=== PATIENT | female | born 1980 | race Caucasian/White ===

== ENCOUNTER 2020-12-30 21:41 | Emergency (ER) | payer OTHER, SELFPAY ==
[2020-12-30] MEDS ORDERED: NA CHLORIDE 0.9% 1,000 ML ONE (22:52)
[2020-12-30] MEDS ORDERED: ONDANSETRON 4 MG/2 ML VIAL ONE (22:52)
[2020-12-30] MEDS ORDERED: MORPHINE 4 MG/ML SYR ONE (22:52)
--- NOTE | 2020-12-30 23:31 | ER ---
Nurse's Notes [facility] Name: Bettina Yepez Age: 40 yrs Sex: Female : 1980 Arrival Date: 12/30/2020 Time: 21:44 Bed 12 Private MD: Diagnosis: Migraine Presentation: 12/30 21:49 Chief complaint: Patient states: migraine, nausea, and vomiting starting this morning. kg Hx of migraines. Coronavirus screen: Vaccine status: Patient reports receiving the 1st dose of the Covid vaccine. Date December 2020 Moderna At this time, the client does not indicate any symptoms associated with coronavirus-19. Ebola Screen: Patient negative for fever greater than or equal to 101.5 degrees Fahrenheit, and additional compatible Ebola Virus Disease symptoms Patient denies exposure to infectious person. Patient denies travel to an Ebola-affected area in the 21 days before illness onset. Initial Sepsis Screen: Does the patient meet any 2 criteria? No. Patient's initial sepsis screen is negative. Does the patient have a suspected source of infection? No. Patient's initial sepsis screen is negative. Risk Assessment: Do you want to hurt yourself or someone else?. Onset of symptoms was December 30, 2020 at 11:00. 21:49 Method Of Arrival: Ambulatory kg 21:49 Acuity: SHADI 4 kg Triage Assessment: 21:51 Headache History: The patient has had previous headaches and this one is similar to kg previous episodes. General: Appears in no apparent distress. Behavior is calm, cooperative, appropriate for age, quiet. Pain: Complains of pain in head Pain currently is 8 out of 10 on a pain scale. Pain began 1 day ago. Also complains of nausea, vomiting. Neuro: Reports headache. 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 - Irregular menses kg Historical: - Allergies: 21:51 PENICILLINS; kg 21:51 Stadol; kg 21:51 Lyrica; kg - Home Meds: 21:51 Dilaudid 4 mg daily [Active]; Seroquel 300 mg Oral tab 1 tab nightly [Active]; Seroquel kg 100 mg Oral tab 1 tab for PRN as needed daily [Active]; 21:59 tizanidine oral [Active]; kg - PMHx: 21:51 Fibromyalgia; DJD; Functional neroulgical disorder; Bipolar disorder; PTSD; Anxiety; kg Depression; Migraine; - PSHx: 21:51 Ligation of fallopian tube; Cholecystectomy; scope of left knee; Tonsillectomy; kg Exploratory laparotomy; - Immunization history:: Adult Immunizations not up to date, Client reports receiving the 1st dose of the Covid vaccine, December 2020 Moderna. - Social history:: Smoking status: Reported history of juuling and/or vaping. Patient uses alcohol, but reports only rare drinking. Screenin:57 Abuse screen: Denies threats or abuse. Denies injuries from another. Nutritional kg screening: No deficits noted. Tuberculosis screening: No symptoms or risk factors identified. Fall Risk None identified. Assessment: 22:30 General: Appears uncomfortable, Behavior is calm, cooperative. Pain: Complains of pain cc4 in face Pain currently is 10 out of 10 on a pain scale. Pain began 2 hours ago. Neuro: No deficits noted. Level of Consciousness is awake, alert, obeys commands, Oriented to person, place, time, situation. 22:50 Reassessment: No changes from previously documented assessment. IV NS started left cc4 dorsal hand with #22 g angiocath x 2 attempts \T\ infusing \T\ bolus rate with no edema noted of site; jenna. well; Morphine 4 mg \T\ Zofran 4 mg given IVP for c/o migraine headache. Vital Signs: 21:49 BP 128 / 82; Pulse 120; Resp 20; Temp 98.7(TE); Pulse Ox 100% on R/A; Weight 68.04 kg kg (R); Height 5 ft. 0 in. (152.40 cm) (R); Pain 8/10; 23:40 BP 137 / 84; Pulse 92; Resp 20; Temp 96.2(O); Pulse Ox 98% on R/A; cc4 21:49 Body Mass Index 29.29 (68.04 kg, 152.40 cm) kg ED Course: 21:44 Patient arrived in ED. do 21:51 Triage completed. kg 21:57 Patient has correct armband on for positive identification. kg 21:57 Arm band placed on right wrist. kg 22:00 Aneudy Bell MD is Attending Physician. pkl 22:09 Patricia Dove, BERNY is Primary Nurse. cc4 23:40 No provider procedures requiring assistance completed. cc4 23:40 IV discontinued, intact, bleeding controlled, No redness/swelling at site. Pressure cc4 dressing applied. Administered Medications: 23:52 Discontinued: NS 0.9% 1000 ml IV at 1000 ml once cc4 22:22 CANCELLED (Duplicate Order): morphine 5 mg IM once; RASS on ADMIN: Combtv4, Very pkl Agttd3, Agttd2, Rstlss1, AlertClm0, Drwsy-1, Lt Sdtn-2, Mod Sdtn-3, Dp Sdtn-4, UnArsble-5 22:22 CANCELLED (Duplicate Order): Ondansetron 4 mg PO once pkl 22:50 Drug: NS 0.9% 1000 ml Route: IV; Rate: 1000 ml; Site: left hand; cc4 22:50 Drug: morphine 4 mg Route: IVP; Site: left hand; cc4 23:40 Follow up: Response: No adverse reaction; Marked relief of symptoms cc4 22:50 Drug: Zofran (Ondansetron) 4 mg Route: IVP; Site: left hand; cc4 23:40 Follow up: BP 137 / 84; Pulse 92 bpm; Resp 20 bpm; Temp 96.2 Oral; Pulse Ox 98% RA; cc4 Response: No adverse reaction; Marked relief of symptoms Outcome: 23:30 Discharge ordered by . pk 23:40 Condition: improved cc4 23:40 Discharged to home ambulatory. cc4 23:40 Condition: improved 23:40 Discharge instructions given to patient, Instructed on discharge instructions, follow up and referral plans. medication usage, Demonstrated understanding of instructions, follow-up care, medications. 23:54 Patient left the ED. cc4 Signatures: Aneudy Bell MD MD pkCarey Aranda Kristen, RN RN kg Patricia Dove RN RN cc4 Corrections: (The following items were deleted from the chart) 21:56 21:51 Allergies: No Known Allergies; kg kg
--- NOTE | 2020-12-30 23:32 | EDPHYS ---
Physician Documentation [facility] Name: Bettina Yepez Age: 40 yrs Sex: Female : 1980 Arrival Date: 12/30/2020 Time: 21:44 Bed 12 Private MD: ED Physician Aneudy Bell HPI: 12/30 22:24 This 40 yrs old Female presents to ER via Ambulatory with complaints of pkl Headache > 24hrs Old, Nausea/Vomiting. 22:24 The patient complains of pain to the forehead, left occipital area and right occipital pkl area. The patient describes the headache as constant. Onset: The symptoms/episode began/occurred this morning. Associated signs and symptoms: Pertinent positives: nausea, vomiting. Headache History: The patient has had previous headaches and this one is similar to previous episodes. Patient has H/O migraine. Recently moved here from out of town. Has not established with local Neurologist. 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 - Irregular menses kg Historical: - Allergies: 21:51 PENICILLINS; kg 21:51 Stadol; kg 21:51 Lyrica; kg - Home Meds: 21:51 Dilaudid 4 mg daily [Active]; Seroquel 300 mg Oral tab 1 tab nightly [Active]; Seroquel kg 100 mg Oral tab 1 tab for PRN as needed daily [Active]; 21:59 tizanidine oral [Active]; kg - PMHx: 21:51 Fibromyalgia; DJD; Functional neroulgical disorder; Bipolar disorder; PTSD; Anxiety; kg Depression; Migraine; - PSHx: 21:51 Ligation of fallopian tube; Cholecystectomy; scope of left knee; Tonsillectomy; kg Exploratory laparotomy; - Immunization history:: Adult Immunizations not up to date, Client reports receiving the 1st dose of the Covid vaccine, December 2020 [facility] [place] - Social history:: Smoking status: Reported history of juuling and/or vaping. Patient uses alcohol, but reports only rare drinking. ROS: 22:24 Eyes: Negative for injury, pain, redness, and discharge, ENT: Negative for injury, pkl pain, and discharge, Neck: Negative for injury, pain, and swelling, Cardiovascular: Negative for chest pain, palpitations, and edema, Respiratory: Negative for shortness of breath, cough, wheezing, and pleuritic chest pain. 22:24 Abdomen/GI: Positive for nausea and vomiting. 22:24 Back: Negative for acute changes. 22:24 : Negative for urinary symptoms. 22:24 MS/extremity: Negative for acute changes. 22:24 Skin: Negative for rash. 22:24 Neuro: Positive for headache. Exam: 22:24 Head/Face: Normocephalic, atraumatic. Eyes: Pupils equal round and reactive to light, pkl extra-ocular motions intact. Lids and lashes normal. Conjunctiva and sclera are non-icteric and not injected. Cornea within normal limits. Periorbital areas with no swelling, redness, or edema. ENT: Nares patent. No nasal discharge, no septal abnormalities noted. Tympanic membranes are normal and external auditory canals are clear. Oropharynx with no redness, swelling, or masses, exudates, or evidence of obstruction, uvula midline. Mucous membranes moist. Neck: Trachea midline, no thyromegaly or masses palpated, and no cervical lymphadenopathy. Supple, full range of motion without nuchal rigidity, or vertebral point tenderness. No Meningismus. Chest/axilla: Normal chest wall appearance and motion. Nontender with no deformity. No lesions are appreciated. 22:24 Cardiovascular: Rate: tachycardic, actual rate is 120 bpm, Rhythm: regular. 22:24 Respiratory: the patient does not display signs of respiratory distress, Respirations: normal, Breath sounds: are clear throughout. 22:24 Abdomen/GI: Bowel sounds: normal, Palpation: abdomen is soft and non-tender, in all quadrants. 22:24 Back: Exam negative for acute changes. 22:24 : Exam negative for acute changes. 22:24 Musculoskeletal/extremity: Exam is negative for acute changes. 22:24 Skin: Exam negative for rash. 22:24 Neuro: Orientation: is normal, Mentation: is normal, Cranial nerves: grossly normal, Motor: is normal. Vital Signs: 21:49 BP 128 / 82; Pulse 120; Resp 20; Temp 98.7(TE); Pulse Ox 100% on R/A; Weight 68.04 kg kg (R); Height 5 ft. 0 in. (152.40 cm) (R); Pain 8/10; 23:40 BP 137 / 84; Pulse 92; Resp 20; Temp 96.2(O); Pulse Ox 98% on R/A; cc4 21:49 Body Mass Index 29.29 (68.04 kg, 152.40 cm) kg MDM: 22:00 Patient medically screened. pkl 22:24 Data reviewed: vital signs, nurses notes. pkl 23:28 ED course: Patient feeling better. Advised to follow up with Neurologist in 2 to 3 pkl days. Patient understood instructions.. Administered Medications: 23:52 Discontinued: NS 0.9% 1000 ml IV at 1000 ml once cc4 22:22 CANCELLED (Duplicate Order): morphine 5 mg IM once; RASS on ADMIN: Combtv4, Very pkl Agttd3, Agttd2, Rstlss1, AlertClm0, Drwsy-1, Lt Sdtn-2, Mod Sdtn-3, Dp Sdtn-4, UnArsble-5 22:22 CANCELLED (Duplicate Order): Ondansetron 4 mg PO once pkl 22:50 Drug: NS 0.9% 1000 ml Route: IV; Rate: 1000 ml; Site: left hand; cc4 22:50 Drug: morphine 4 mg Route: IVP; Site: left hand; cc4 23:40 Follow up: Response: No adverse reaction; Marked relief of symptoms cc4 22:50 Drug: Zofran (Ondansetron) 4 mg Route: IVP; Site: left hand; cc4 23:40 Follow up: BP 137 / 84; Pulse 92 bpm; Resp 20 bpm; Temp 96.2 Oral; Pulse Ox 98% RA; cc4 Response: No adverse reaction; Marked relief of symptoms Disposition Summary: 12/30/20 23:30 Discharge Ordered Location: Home pkl Problem: new pkl Symptoms: have improved pkl Condition: Stable pkl Diagnosis - Migraine pkl Followup: pkl - With: Private Physician - When: 2 - 3 days - Reason: Re-evaluation by your physician Discharge Instructions: - Discharge Summary Sheet pkl Forms: - Medication Reconciliation Form pkl - Thank You Letter pkl - Antibiotic Education pkl - Prescription Opioid Use pkl Prescriptions: - Zofran 4 mg Oral Tablet - take 1 tablet by ORAL route every 12 hours As needed; 10 tablet; Refills: 0, pkl Product Selection Permitted - Diclofenac Sodium 75 mg Oral tablet,delayed release (DR/EC) - take 1 tablet by ORAL route 2 times per day As needed; 20 tablet; Refills: 0, pkl Product Selection Permitted Signatures: Aneudy Bell MD MD pkl Yvette Persaud RN RN kg Patricia Dove RN RN cc4 Corrections: (The following items were deleted from the chart) 21:56 21:51 Allergies: No Known Allergies; kg kg 22:22 22:22 morphine 5 mg IM once; RASS on ADMIN: Combtv4, Very Agttd3, Agttd2, Rstlss1, pkl AlertClm0, Drwsy-1, Lt Sdtn-2, Mod Sdtn-3, Dp Sdtn-4, UnArsble-5 ordered. pkl 22:22 22:22 Ondansetron 4 mg PO once ordered. pkl pkl
[2020-12-31 00:43] VITALS: BP 137/84; TEMP 96.2; O2SAT 98
== END 2020-12-30 23:54 | disposition home or self-care (01) ==
LOC: ER 21:41
DX: G43.909 Migraine, unspecified, not intractable, without status migrainosus (principal); F31.9 Bipolar disorder, unspecified; Z88.0 Allergy status to penicillin; Z88.5 Allergy status to narcotic agent; Z88.8 Allergy status to other drugs, medicaments and biological substances
CPT/HCPCS: 96375; 96374; 99283; J7030; J2405

== ENCOUNTER 2021-02-19 20:29 | Emergency (ER) | payer OTHER ==
[2021-02-19] MEDS ORDERED: NA CHLORIDE 0.9% 1,000 ML ONE (21:10)
[2021-02-19 21:38] LABS: Basophils % 0.7 % (0-1.3); Hematocrit 38.7 % (36.0-45.0); Lymphocytes % 42.5 % (15.3-44.8); MPV 8.2 fL (7.6-11.3); RBC Red Blood Cell Count 4.56 M/uL (3.86-4.86)
[2021-02-19 21:40] LABS: Protime INR 1.05
--- NOTE | 2021-02-19 21:43 | RAD REPORT ---
EXAM DESCRIPTION: [place] Single View02/19/2021 9:20 pm CLINICAL HISTORY: Syncope COMPARISON: none FINDINGS: The lungs appear clear of acute infiltrate. The heart is normal size IMPRESSION: No acute abnormalities displayed
--- NOTE | 2021-02-19 21:49 | RAD REPORT ---
EXAM DESCRIPTION: CT - Head Brain Wo Cont - 02/19/2021 9:32 pm CLINICAL HISTORY: Syncope COMPARISON: None. TECHNIQUE: Computed axial tomography of the head was obtained. IV contrast was not requested. All CT scans are performed using dose optimization technique as appropriate and may include automated exposure control or mA/KV adjustment according to patient size. FINDINGS: An intracranial bleed is not seen . The ventricles are normal in caliber. No extra-axial fluid collection is noted. Fluid within the sinuses/ mastoids is not seen. IMPRESSION: No acute intracranial abnormality is seen. If patient's symptoms persist MRI of the bra in would be recommended.
[2021-02-19 22:04] LABS: ALT/SGPT 29 U/L (12-78); AST/SGOT 13 U/L (15-37); Albumin 3.6 g/dL (3.4-5.0); Alkaline Phosphatase 75 U/L (45-117); BUN Blood Urea Nitrogen 13 mg/dL (7-18); Bicarbonate 27 mmol/L (21-32); Bilirubin Direct < 0.1 mg/dL (0-0.2); Bilirubin Total 0.3 mg/dL (0.2-1.0); Glucose Level 102 mg/dL (74-106); Magnesium 2.3 mg/dL (1.8-2.4); NT PRO-BNP 98 pg/mL (<125); Phosphorus 3.4 mg/dL (2.5-4.9); Potassium 4.3 mmol/L (3.5-5.1); Protein, Total 7.6 g/dL (6.4-8.2); Sodium Level 140 mmol/L (136-145); Troponin (Emerg Dept Use Only) < 0.02 ng/mL (0.0-0.045)
[2021-02-19 23:10] LABS: Urine Blood 1+ (Negative); Urine Glucose Negative (Negative); Urine Protein Negative (Negative); Urine Specific Gravity 1.025 (1.005-1.030)
[2021-02-19 23:12] LABS: SARS-COV-2 RT PCR NEGATIVE (NEGATIVE)
[2021-02-19 23:50] LABS: Barbiturates NEGATIVE (NEGATIVE); Benzodiazepines NEGATIVE (NEGATIVE); Cocaine NEGATIVE (NEGATIVE); METHAMPHETAM NEGATIVE (NEGATIVE); Methadone NEGATIVE (NEGATIVE); Opiates NEGATIVE (NEGATIVE); Phencyclidine NEGATIVE (NEGATIVE); THC Cannibis NEGATIVE (NEGATIVE)
--- NOTE | 2021-02-20 01:02 | ER ---
Nurse's Notes [facility] Name: Bettina Yepez Age: 40 yrs Sex: Female : 1980 Arrival Date: 02/19/2021 Time: 20:33 Bed 14 Private MD: Diagnosis: Near Syncope, Possible medication relation Presentation: 02/19 20:39 Chief complaint: Patient states: I have been getting shaky, my knees give out and I ld1 fall on the ground. Pt reports this happening 5 times this week. Over the past year it has progressively gotten worse. Coronavirus screen: At this time, the client does not indicate any symptoms associated with coronavirus-19. Ebola Screen: No symptoms or risks identified at this time. Initial Sepsis Screen: Does the patient meet any 2 criteria? No. Patient's initial sepsis screen is negative. Does the patient have a suspected source of infection? No. Patient's initial sepsis screen is negative. Risk Assessment: Do you want to hurt yourself or someone else? Patient reports no desire to harm self or others. Onset of symptoms was February 19, 2021. 20:39 Method Of Arrival: Wheelchair ld1 20:39 Acuity: SHADI 3 ld1 Triage Assessment: 20:42 General: Appears in no apparent distress. comfortable, Behavior is calm, cooperative, ld1 appropriate for age. Pain: Denies pain. EENT: No signs and/or symptoms were reported regarding the EENT system. Neuro: Level of Consciousness is awake, alert, obeys commands, Oriented to person, place, time, situation, Appropriate for age. Cardiovascular: Capillary refill < 3 seconds Patient's skin is warm and dry. Respiratory: Airway is patent Respiratory effort is even, unlabored, Respiratory pattern is regular, symmetrical. GI: Abdomen is round non-distended. Derm: No signs and/or symptoms reported regarding the dermatologic system. Musculoskeletal: Reports weakness in right leg and left leg. 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 - mr2 Historical: - Allergies: 20:42 Lyrica; ld1 20:42 PENICILLINS; ld1 20:42 Stadol; ld1 - Home Meds: 20:42 Seroquel 300 mg Oral tab 1 tab nightly [Active]; tizanidine Oral [Active]; Robaxin 750 ld1 mg Oral tab 1 tab 3 times per day [Active]; - PMHx: 20:42 Anxiety; Depression; DJD; Fibromyalgia; Functional neroulgical disorder; Migraine; ld1 PTSD; Bipolar disorder; - PSHx: 20:42 Cholecystectomy; Exploratory laparotomy; Ligation of fallopian tube; Tonsillectomy; ld1 scope of left knee; - Immunization history:: Adult Immunizations up to date, Client reports receiving the 2nd dose of the Covid vaccine. - Social history:: Smoking status: Reported history of juuling and/or vaping. Patient uses alcohol, but reports only rare drinking. Screenin:00 Abuse screen: Denies threats or abuse. Denies injuries from another. Nutritional mr2 screening: No deficits noted. Tuberculosis screening: No symptoms or risk factors identified. Fall Risk Fall in past 12 months (25 points). IV access (20 points). Gait- Impaired (20 pts.). Vital Signs: 20:39 BP 89 / 69; Pulse 78; Resp 18; Temp 97.8(TE); Pulse Ox 98% on R/A; Weight 68.04 kg; ld1 Height 5 ft. 0 in. (152.40 cm); Pain 5/10; 20:39 Body Mass Index 29.29 (68.04 kg, 152.40 cm) ld1 ED Course: 20:33 Patient arrived in ED. wm 20:42 Triage completed. ld1 20:42 Arm band placed on right wrist. ld1 20:48 Edilson Wise MD is Attending Physician. 7 20:57 Thiago Valencia, RN is Primary Nurse. mr2 21:21 XRAY Chest (1 view) In Process Unspecified. EDMS 21:31 CT Head Brain wo Cont In Process Unspecified. EDMS 21:31 Phosphorus Sent. mr2 21:31 TSH Sent. mr2 21:31 Salicylate Sent. mr2 21:31 ETOH Level Sent. mr2 21:31 Acetaminophen Sent. mr2 22:00 COVID-19/FLU A+B (Document "Date of Onset" if Symptomatic) Sent. mr2 22:00 No provider procedures requiring assistance completed. Inserted saline lock: 18 gauge mr2 in right antecubital area, using aseptic technique. 23:42 Patient has correct armband on for positive identification. Call light in reach. Side mr2 rails up X2. 11/20 01:29 IV discontinued. mr2 Administered Medications: 02/19 21:31 Drug: NS 0.9% 1000 ml Route: IV; Rate: 1000 ml; Site: right antecubital; mr2 Outcome: 02/20 01:02 Discharge ordered by MD. sandoval 01:29 Discharged to home ambulatory. mr2 01:29 Condition: stable 01:29 Discharge instructions given to patient, Instructed on discharge instructions, follow up and referral plans. 01:29 Patient left the ED. mr2 Signatures: Dispatcher [employer] EDEdilson Bocanegra MD MD 7 Alycia Samuel RN RN ld1 Amee Quinn Mike, RN RN mr2
--- NOTE | 2021-02-20 01:03 | EDPHYS ---
Physician Documentation [facility] Name: Bettina Yepez Age: 40 yrs Sex: Female : 1980 Arrival Date: 02/19/2021 Time: 20:33 Bed 14 Private MD: BLUE Physician Edilson Wise HPI: 02/19 20:50 This 40 yrs old Female presents to ER via Wheelchair with complaints of Pt states she mh7 gets shakey all over and it causes her to collapse. 20:50 The patient has experienced near-syncope, almost passed out, felt generally weak. mh7 Onset: The symptoms/episode began/occurred 1 year(s) ago, and became persistent 1 weeks ago. Duration: The patient has had multiple episodes, that last an unknown period of time. Context: the episode(s) was witnessed, by no one, occurred at home, occurred while the patient was standing, Just prior to the episode the patient experienced Shaky feeling. Associated injury: The patient did not suffer any apparent associated injury. 20:50 Associated signs and symptoms: Pertinent positives: weakness, generalized, Pertinent mh7 negatives: abdominal pain, agitation, ataxia, blurred vision, chest pain, combativeness, confusion, diaphoresis, diarrhea, dizziness, headache, lightheadedness, nausea, numbness, palpitations, seizure, shortness of breath, tingling, vertigo, vomiting. 20:50 Current symptoms: Currently, the patient is not experiencing any symptoms, the patient mh7 feels back to baseline. The patient has experienced similar episodes in the past, chronically. 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 LMP N/A - mr2 Historical: - Allergies: 20:42 Lyrica; ld1 20:42 PENICILLINS; ld1 20:42 Stadol; ld1 - Home Meds: 20:42 Seroquel 300 mg Oral tab 1 tab nightly [Active]; tizanidine Oral [Active]; Robaxin 750 ld1 mg Oral tab 1 tab 3 times per day [Active]; - PMHx: 20:42 Anxiety; Depression; DJD; Fibromyalgia; Functional neroulgical disorder; Migraine; ld1 PTSD; Bipolar disorder; - PSHx: 20:42 Cholecystectomy; Exploratory laparotomy; Ligation of fallopian tube; Tonsillectomy; ld1 scope of left knee; - Immunization history:: Adult Immunizations up to date, Client reports receiving the 2nd dose of the Covid vaccine. - Social history:: Smoking status: Reported history of juuling and/or vaping. Patient uses alcohol, but reports only rare drinking. ROS: 20:50 Constitutional: Negative for fever, chills, and weight loss, Eyes: Negative for injury, mh7 pain, redness, and discharge, ENT: Negative for injury, pain, and discharge, Neck: Negative for injury, pain, and swelling, Cardiovascular: Negative for chest pain, palpitations, and edema, Respiratory: Negative for shortness of breath, cough, wheezing, and pleuritic chest pain, Abdomen/GI: Negative for abdominal pain, nausea, vomiting, diarrhea, and constipation, Back: Negative for injury and pain, : Negative for injury, bleeding, discharge, and swelling, MS/Extremity: Negative for injury and deformity, Skin: Negative for injury, rash, and discoloration, Psych: Negative for depression, anxiety, suicide ideation, homicidal ideation, and hallucinations, Allergy/Immunology: Negative for hives, rash, and allergies, Endocrine: Negative for neck swelling, polydipsia, polyuria, polyphagia, and marked weight changes, Hematologic/Lymphatic: Negative for swollen nodes, abnormal bleeding, and unusual bruising. Exam: 20:50 Constitutional: This is a well developed, well nourished patient who is awake, alert, mh7 and in no acute distress. Head/Face: Normocephalic, atraumatic. Eyes: Pupils equal round and reactive to light, extra-ocular motions intact. Lids and lashes normal. Conjunctiva and sclera are non-icteric and not injected. Cornea within normal limits. Periorbital areas with no swelling, redness, or edema. Neck: Trachea midline, no thyromegaly or masses palpated, and no cervical lymphadenopathy. Supple, full range of motion without nuchal rigidity, or vertebral point tenderness. No Meningismus. Chest/axilla: Normal chest wall appearance and motion. Nontender with no deformity. No lesions are appreciated. Cardiovascular: Regular rate and rhythm with a normal S1 and S2. No gallops, murmurs, or rubs. Normal PMI, no JVD. No pulse deficits. Respiratory: Lungs have equal breath sounds bilaterally, clear to auscultation and percussion. No rales, rhonchi or wheezes noted. No increased work of breathing, no retractions or nasal flaring. Abdomen/GI: Soft, non-tender, with normal bowel sounds. No distension or tympany. No guarding or rebound. No evidence of tenderness throughout. Back: No spinal tenderness. No costovertebral tenderness. Full range of motion. Skin: Warm, dry with normal turgor. Normal color with no rashes, no lesions, and no evidence of cellulitis. MS/ Extremity: Pulses equal, no cyanosis. Neurovascular intact. Full, normal range of motion. Neuro: Awake and alert, GCS 15, oriented to person, place, time, and situation. Cranial nerves II-XII grossly intact. Motor strength 5/5 in all extremities. Sensory grossly intact. Cerebellar exam normal. Normal gait. Psych: Awake, alert, with orientation to person, place and time. Behavior, mood, and affect are within normal limits. Vital Signs: 20:39 BP 89 / 69; Pulse 78; Resp 18; Temp 97.8(TE); Pulse Ox 98% on R/A; Weight 68.04 kg; ld1 Height 5 ft. 0 in. (152.40 cm); Pain 5/10; 20:39 Body Mass Index 29.29 (68.04 kg, 152.40 cm) ld1 MDM: 02/20 00:56 Differential Diagnosis: cardiac arrhythmia, cerebrovascular accident, drug effect, mh7 emotional response, idiopathic syncope, , vasovagal episode. Data reviewed: vital signs, nurses notes, old medical records, lab test result(s), cardiac enzymes, CBC, electrolytes, urinalysis, EKG, radiologic studies, CT scan, plain films. Data interpreted: Pulse oximetry: on room air is 98 %. Interpretation: normal. Counseling: I had a detailed discussion with the patient and/or guardian regarding: the historical points, exam findings, and any diagnostic results supporting the discharge/admit diagnosis, lab results, radiology results. Response to treatment: the patient's symptoms have resolved after treatment, the patient's blood pressure is in an acceptable range, mental status has returned to baseline, the patient no longer shows bradycardia, the patient is not short of breath, the patient is not tachycardic, the patient's pain is gone, the patient's temperature has normalized. Refusal of service: The patient/guardian displays adequate decision making capability and despite a detailed discussion of alternatives, benefits, risks, and consequences refuses: Admission to the hospital for further work-up and treatment. ED course: Pain, no acute distress, vital signs stable, no focal neurological deficits. No headache, chest pain, shortness of breath, nausea, vomiting, dizziness, numbness/tingling, or weakness. Patient ambulating around the ED without difficulty. Discussed all test results and findings recommend admission for further evaluation. Patient declined admission and request to be discharged from the ED at this time. Upon review of patient's medications she noted that her pain management doctor as prescribed Robaxin and Zanaflex which the patient is alternating daily. Explained to patient that these medications especially in combination could be related to her symptoms as they both may cause hypotension and advised that she does not take both of these medications and discuss immediately with her doctor. Patient acknowledged information that was communicated verbalized that she understood.. 01:02 Patient medically screened. [facility] 02/19 21:03 Order name: Basic Metabolic Panel; Complete Time: 22:23 [facility] 02/19 21:03 Order name: CBC with Diff; Complete Time: 21:53 [facility] 02/19 21:03 Order name: LFT's; Complete Time: 22:23 [facility] 02/19 21:03 Order name: Magnesium; Complete Time: 22:23 [facility] 02/19 21:03 Order name: NT PRO-BNP; Complete Time: 22:23 [facility] 02/19 21:03 Order name: PT-INR; Complete Time: 21:53 [facility] 02/19 21:03 Order name: Troponin (emerg Dept Use Only); Complete Time: 22:23 [facility] 02/19 21:03 Order name: UDS; Complete Time: 00:06 [facility] 02/19 21:03 Order name: Acetaminophen; Complete Time: 22:23 [facility] 02/19 21:03 Order name: Salicylate; Complete Time: 21:53 [facility] 02/19 21:03 Order name: ETOH Level; Complete Time: 22:23 [facility] 02/19 21:03 Order name: TSH; Complete Time: 22:23 [facility] 02/19 21:03 Order name: Phosphorus; Complete Time: 22:23 [facility] 02/19 21:05 Order name: COVID-19/FLU A+B (Document "Date of Onset" if Symptomatic); Complete Time: [facility] 00:06 02/19 21:03 Order name: XRAY Chest (1 view); Complete Time: 21:53 [facility] 02/19 21:03 Order name: Cardiac monitoring [facility] 02/19 21:03 Order name: EKG - Nurse/Tech; Complete Time: 22:00 [facility] 02/19 21:03 Order name: IV Saline Lock; Complete Time: 22:00 [facility] 02/19 21:03 Order name: Labs collected and sent; Complete Time: 22:00 [facility] 02/19 21:03 Order name: O2 Per Protocol [facility] 02/19 21:03 Order name: O2 Sat Monitoring [facility] 02/19 21:03 Order name: Urine Dipstick-Ancillary (obtain specimen); Complete Time: 23:06 [facility] 02/19 21:03 Order name: Urine Test (obtain specimen); Complete Time: 23:06 [facility] 02/19 21:03 Order name: CT Head Brain wo Cont; Complete Time: 21:53 [facility] 02/19 21:03 Order name: Orthostatics; Complete Time: 23:06 [facility] 02/19 23:10 Order name: Urine Dipstick-Ancillary; Complete Time: 00:06 EDMS Administered Medications: 02/19 21:31 Drug: NS 0.9% 1000 ml Route: IV; Rate: 1000 ml; Site: right antecubital; mr2 Disposition Summary: 02/20/21 01:02 Discharge Ordered Location: Home [facility] Problem: an ongoing problem [facility] Symptoms: have improved [facility] Condition: Stable [facility] Diagnosis - Near Syncope, Possible medication relation [facility] Followup: [facility] - With: Private Physician - When: 1 - 2 days - Reason: Worsening of condition, Recheck today's complaints, Continuance of care, Re-evaluation by your physician Discharge Instructions: - Discharge Summary Sheet [facility] - Near-Syncope, [id number] [facility] Forms: - Medication Reconciliation Form [facility] - Thank You Letter [facility] - Antibiotic Education [facility] - Prescription Opioid Use [facility] Signatures: Dispatcher [employer] EDEdilson Bocanegra MD MD 7 Alycia Samuel RN RN ld1 Thiago Valencia RN RN mr2
[2021-02-20 01:35] VITALS: BP 89/69; TEMP 97.8; O2SAT 98
== END 2021-02-20 01:29 | disposition home or self-care (01) ==
LOC: ER 20:29
DX: R55 Syncope and collapse (principal); F31.9 Bipolar disorder, unspecified; Z88.0 Allergy status to penicillin; Z88.5 Allergy status to narcotic agent; Z88.8 Allergy status to other drugs, medicaments and biological substances
CPT/HCPCS: 85025; 80048; 36415; 80320; 83735; 80329 ×2; 84100; 85610; 80076; 84443; 81003; 84484; 83880; 0240U; 80307; 70450; 71045; 99284; J7030

== ENCOUNTER 2022-09-19 10:17 | Emergency (ER) | payer OTHER ==
--- OUTSIDE RECORDS SUMMARY | 2022-09-19 10:34 | XMS REPORT | Continuity of Care Document ---
:[address] [facility] t Address [address] [place] [address] Care Team Providers Name Role Phone Samy Velez Primary Care Physician [phone] IVANA LOYD Attending Clinician Unavailable MÓNICA ABRAHAM Attending Clinician Unavailable Mónica Abraham DO Attending Clinician Barbara Salmeron PTA Attending Clinician Unavailable Ivana Loyd MD Attending Clinician Jony Guevara MD Attending Clinician Ansley LINDER Attending Clinician Unavailable Ansley Chadwick Attending Clinician FLAKO ZULUAGA Attending Clinician Unavailable JONY GUEVARA Attending Clinician Unavailable Daria Pantoja PT Attending Clinician Unavailable Doctor Unassigned, [place] Attending Clinician Unavailable Call, Former[facility] Phone Attending Clinician Unavailable CELSA JACKSON Attending Clinician Unavailable Celsa Jackson MD Attending Clinician CHIDI KAUR Attending Clinician Unavailable Chidi Kaur MD Attending Clinician Rojelio Salmeron PTA Attending Clinician Unavailable EDUAR DEE Attending Clinician Unavailable EDUAR DEE Attending Clinician Unavailable Jeannette Alvarez PT Attending Clinician Unavailable EDUARDO DON Attending Clinician Unavailable Eduardo Don NP Attending Clinician YULIANA GARCIA Attending Clinician Unavailable Yuliana Gracia Attending Clinician RADIOLOGY Attending Clinician Unavailable Radiology Attending Clinician Unavailable MÓNICA ABRAHAM Admitting Clinician Unavailable IVANA LOYD Admitting Clinician Unavailable Ivana Loyd MD Admitting Clinician CELSA JACKSON Admitting Clinician Unavailable EDUARDO DON Admitting Clinician Unavailable YULIANA GARCIA Admitting Clinician Unavailable HENRY SÁNCHEZ Admitting Clinician Unavailable Payers Payer Name Policy Type Policy Number Effective Date Expiration Date Vannesa dennison [facility] [id number] 2021 00:00:00 Problems Condition Condition Condition Status Onset Resolution Last Treating Co mments Source Name Details Category Date Date Treatment Clinician Date Sprain of Sprain of Disease Active Overview: Univers anterior anterior 05-02 Formattin ity of talofibula talofibula 00:00: g of this [place] r ligament r ligament 00 note Me dical of right of right might be Bran ch ankle, ankle, different initial initial from the encounter encounter original. Added automatic ally from request for surgery [id number] No known No known Disease Unive rs active active ity of problems problems [facility] Allergies, Adverse Reactions, Alerts Allergy Allergy Status Severity Reaction(s) Onset Inactive Treating Comm ents Source Name Type Date Date Clinician PENICILL Drug Active Rash 2021-04 Univers INS Class 1-12 ity of 00:00: 00 Medical Branch BUTORPHA DRUG Active Hallucinates 2021-04 Un liliane NOL INGREDI 04-14 ity of 00:00: [place] 00 Medical Branch PREGABAL DRUG Active Other-Cmnt 2021-04 Univ ers IN INGREDI 12 ity of 00:00: [place] 00 Medical Branch Pregabal Propensi Active Other - See 2021-04 Suicidal Univers in ty to comments 04-14 ideations ity o f adverse 00:00: [place] reaction 00 Medical s Branch Penicill Propensi Active Rash 2021-04 Univer s ins ty to 1-12 ity of adverse 00:00: [place] reaction 00 Medical s Branch Butorpha Propensi Active Hallucinatio 2021-04 Univers nol ty to ns 12 ity of adverse 00:00: [place] reaction 00 Medical s Branch Penicill Propensi Active ins - ty to 8-10 CLASS adverse 00:00: reaction 00 to drug n Propensi Active ty to 5-24 adverse 00:00: reaction 00 to drug Lyrica - Propensi Active Oral ty to 2-27 adverse 00:00: reaction 00 to drug Stadol Propensi Active ty to 2-25 adverse 00:00: reaction 00 to drug NO KNOWN Drug Active Univers ALLERGIE Class ity of S [facility] Social History Social Habit Start Date Stop Date Quantity Comments Source Exposure to 2022-08-08 2022-08-18 Not sure [facility] SARS-CoV-2 00:00:00 18:06:00 [facility] (event) [place] Tobacco use and 2022-07-08 2022-07-08 Smokeless tobacco Un iversity of exposure 00:00:00 00:00:00 non-user [facility] Sex Assigned At [birth year] Universit y of 00:00:00 00:00:00 [facility] Smoking Status Start Date Stop Date Source Tobacco smoking consumption [facility] Never smoked tobacco [facility] Medications Ordered Filled Start Stop Current Ordering Indication Dosage Frequency Signature Comments Components Source Medication Medication Date Date Medication? Clinician (SIG) Name Name iopamidol 2022- No [id number] 75mL 75 mL, Univers (ISOVUE 09-11 Intravenou ity o f 370-500 mL) 18:45: 18:45 s, ONCE, 1 [place] injection 00 :00 dose, On Medica l 75 mL [facility] 09/11/22 at 1345, Routine morpHINE (4 2022- No 4mg 4 mg, Slow Univers mg/mL) 09-11 IV Push, ity of injection 4 16:45: 17:03 [place]CE[place] 1 [place] 00 :00 dose, On Medical [facility] 09/11/22 at 1145, STAT ondansetron 2022- No 4mg 4 mg, Slow Univers (ZOFRAN 09-11 IV Push, ity of (PF)) 16:45: 17:03 ONCE, 1 [place] injection 4 00 :00 dose, On Medi [place] mg [facility] 09/11/22 at 1145, HUNG metroNIDAZO 0 Yes [id number] 500mg Take 1 Univers LE 500 mg 09-11 tablet by ity o f tablet 00:00: mouth in [place] [address] [facility] morning Branch and 1 tablet in the evening. ciprofloxac 2022- Yes [id number] 500mg Take 1 Univers in HCl 500 09-11 tablet by ity of mg tablet 00:00: 04:59 mouth in [place] as 00 :[address] [facility] morning Branch and 1 tablet in the evening. Do all this for 7 days. methylpredn 2022- No 125mg 125 mg, U nivers isolone sod 08-19 0518 Intramuscu i ty of succ 00:00: 23:01 lar, ONCE, [place] (SOLU-MEDRO 00 :00 1 dose, On Me dical L) [place] Branch injection 08/18/22 at 125 mg 1900, HUNG predniSONE 0 Yes [id number] 1 PO BID x Univers 20 mg 5-18 4 days ity of tablet 00:00: [address] predniSONE 2022-0 Yes [id number] 1 PO BID x Univers 20 mg 5-18 4 days ity of tablet 00:00: [address] predniSONE 2022-0 Yes [id number] 1 PO BID x Univers 20 mg 5-18 4 days ity of tablet 00:00: [address] predniSONE 2022-0 Yes [id number] 1 PO BID x Univers 20 mg 5-18 4 days ity of tablet 00:00: [address] predniSONE 2022-0 Yes [id number] 1 PO BID x Univers 20 mg 5-18 4 days ity of tablet 00:00: [address] predniSONE 2022-0 Yes [id number] 1 PO BID x Univers 20 mg 5-18 4 days ity of tablet 00:00: [address] HYDROcodone 2022- No 1{tbl} 1 tablet, Univers -acetaminop 06-22 Oral, ity of hen (NORCO 13:30: 13:40 ONCE, 1 [place] 5) 5-325 mg 00 :00 dose, On Medi [place] tablet 1 Wed Branch tablet 06/22/22 at 0830, Routine, PACU HYDROcodone 2022- No 1{tbl} 1 tablet, Univers -acetaminop 06-22- Oral, ity of hen (NORCO 13:30: 13:40 ONCE, 1 [place] 5) 5-325 mg 00 :00 dose, On Medi [place] tablet 1 Mon Branch tablet 06/22/22 at 0830, Routine, PACU FENTanyl PF 2022-0 Yes 25ug 25 mcg, Uni vers (SUBLIMAZE 06-22 Slow IV ity of (PF)) 13:16: Push, [place] injection 22 Q5MIN PRN, Medi [place] 25 mcg 4 doses, Branch Starting on Mon06/22/22 at 0816, Until Discontinu ed, Routine, Pain (scale 4-6), PACU ondansetron Yes 4mg 4 mg, Slow Univers (ZOFRAN 06-22 IV Push, ity of (PF)) 13:16: PRN, 1 [place] injection 4 22 dose, Medical mg Starting Branch on Mon06/22/22 at 0816, Until Discontinu ed, Routine, Nausea and Vomiting (N/V), PACU HYDROmorpho 2022- No .2mg 0.2 mg, Un liliane ne 06-22- Slow IV ity of (DILAUDID) 13:16: 14:47 Push, [place] injection 22 :00 Q5MIN PRN, Medi [place] 0.2 mg 10 doses, Branch Starting on Mon06/22/22 at 0816, Until Discontinu ed, Routine, Pain (scale 7-10), PACU
Us e approved by (Faculty): PACU USE -ANESTHESI A SERVICE-HY DROMORPHON E INJECTIONS HYDROmorpho 0 2022- No .2mg 0.2 mg, Un liliane ne 06-22 03-22 Slow IV ity of (DILAUDID) 13:16: 14:47 Push, [place] injection 22 :00 Q5MIN PRN, Medi [place] 0.2 mg 10 doses, Branch Starting on Mon06/22/22 at 0816, Until Discontinu ed, Routine, Pain (scale 7-10), PACU
Us e approved by (Faculty): PACU USE -ANESTHESI A SERVICE-HY DROMORPHON E INJECTIONS FENTanyl PF 2022-0 2022- No 25ug 25 mcg, Un liliane (SUBLIMAZE 06-22 Slow IV ity o f (PF)) 13:16: 18:15 Push, [place] injection 22 :19 Q5MIN PRN, Medi [place] 25 mcg 4 doses, Branch Starting on Mon06/22/22 at 0816, Until Mon06/22/22 at 1315, Routine, Pain (scale 4-6), PACU ondansetron 2022- No 4mg 4 mg, Slow Univers (ZOFRAN 06-22 IV Push, ity of (PF)) 13:16: 18:15 PRN, 1 [place] injection 4 22 :19 dose, Medical mg Starting Branch on Mon06/22/22 at 0816, Until Mon06/22/22 at 1315, Routine, Nausea and Vomiting (N/V), PACU bupivacaine 2022- No PRN, Unive rs (preserv 06-22 Starting ity of free) 13:06: 13:27 on Mon (SENSORCAIN 00 :39 06/22/22 at [place] dicut E MP) 0.25 0806, Branch % (2.5 Intra-op mg/mL) 20 mL, BUPivacaine liposome (PF) (EXPAREL (PF)) 1.3 % (13.3 mg/mL) 266 mg QUEtiapine 2022-0 Yes 400mg Take 1 Univ ers (SEROQUEL 3-22 tablet by ity o f XR) 400 mg 11:10: mouth in [place] 24 hr 19 the Medical tablet morning. Branch ubrogepant 2022-0 Yes Take by Univ ers (UBRELVY) 3-22 mouth as ity of 50 mg Tab 11:10: needed. [place] [address] Medical Branch propranoloL 3-0 Yes 10mg Take 1 Univ ers 10 mg 3-22 tablet by ity of tablet 11:10: mouth in [place] 19 the Medical morning. Branch QUEtiapine 2022-0 Yes 400mg Take 1 Univ ers (SEROQUEL 3-22 tablet by ity o f XR) 400 mg 11:10: mouth in [place] 24 hr 19 the Medical tablet morning. Branch ubrogepant 2022-0 Yes Take by Univ ers (UBRELVY) 3-22 mouth as ity of 50 mg Tab 11:10: needed. [place] [address] Medical Branch propranoloL 2023-0 Yes 10mg Take 1 Univ ers 10 mg 3-22 tablet by ity of tablet 11:10: mouth in [place] [address] the Medical morning. Branch QUEtiapine 2023-0 Yes 400mg Take 1 Univ ers (SEROQUEL 3-22 tablet by ity o f XR) 400 mg 11:10: mouth in [place] 24 hr 19 the Medical tablet morning. Branch ubrogepant 2023-0 Yes Take by Univ ers (UBRELVY) 3-22 mouth as ity of 50 mg Tab 11:10: needed. [place] [address] Medical Branch propranoloL 2023-0 Yes 10mg Take 1 Univ ers 10 mg 3-22 tablet by ity of tablet 11:10: mouth in [place] [address] the Medical morning. Branch QUEtiapine 2023-0 Yes 400mg Take 1 Univ ers (SEROQUEL 3-22 tablet by ity o f XR) 400 mg 11:10: mouth in [place] 24 hr 19 the Medical tablet morning. Branch ubrogepant 2023-0 Yes Take by Univ ers (UBRELVY) 3-22 mouth as ity of 50 mg Tab 11:10: needed. [place] [address] Medical Branch propranoloL 2023-0 Yes 10mg Take 1 Univ ers 10 mg 3-22 tablet by ity of tablet 11:10: mouth in [place] [address] the Medical morning. Branch QUEtiapine 2023-0 Yes 400mg Take 1 Univ ers (SEROQUEL 3-22 tablet by ity o f XR) 400 mg 11:10: mouth in [place] 24 hr 19 the Medical tablet morning. Branch ubrogepant 2023-0 Yes Take by Univ ers (UBRELVY) 3-22 mouth as ity of 50 mg Tab 11:10: needed. [place] [address] Medical Branch propranoloL 2023-0 Yes 10mg Take 1 Univ ers 10 mg 3-22 tablet by ity of tablet 11:10: mouth in [place] [address] the Medical morning. Branch QUEtiapine 2023-0 Yes 400mg Take 1 Univ ers (SEROQUEL 3-22 tablet by ity o f XR) 400 mg 11:10: mouth in [place] 24 hr 19 the Medical tablet morning. Branch ubrogepant 2023-0 Yes Take by Univ ers (UBRELVY) 3-22 mouth as ity of 50 mg Tab 11:10: needed. [place] [address] Medical Branch propranoloL 2022-0 Yes 10mg Take 1 Univ ers 10 mg 3-22 tablet by ity of tablet 11:10: mouth in [place] [address] the Medical morning. Branch QUEtiapine 2022-0 Yes 400mg Take 1 Univ ers (SEROQUEL 3-22 tablet by ity o f XR) 400 mg 11:10: mouth in [place] 24 hr 19 the Medical tablet morning. Branch ubrogepant 2022-0 Yes Take by Univ ers (UBRELVY) 3-22 mouth as ity of 50 mg Tab 11:10: needed. [place] [address] Medical Branch propranoloL 2022-0 Yes 10mg Take 1 Univ ers 10 mg 3-22 tablet by ity of tablet 11:10: mouth in [place] [address] the Medical morning. Branch QUEtiapine 2022-0 Yes 400mg Take 1 Univ ers (SEROQUEL 3-22 tablet by ity o f XR) 400 mg 11:10: mouth in [place] 24 hr 19 the Medical tablet morning. Branch ubrogepant 2022-0 Yes Take by Univ ers (UBRELVY) 3-22 mouth as ity of 50 mg Tab 11:10: needed. [place] [address] Medical Branch propranoloL 2022-0 Yes 10mg Take 1 Univ ers 10 mg 3-22 tablet by ity of tablet 11:10: mouth in [place] [address] the Medical morning. Branch QUEtiapine 2022-0 Yes 400mg Take 1 Univ ers (SEROQUEL 3-22 tablet by ity o f XR) 400 mg 11:10: mouth in [place] 24 hr 19 the Medical tablet morning. Branch ubrogepant 2022-0 Yes Take by Univ ers (UBRELVY) 3-22 mouth as ity of 50 mg Tab 11:10: needed. [place] [address] Medical Branch propranoloL 2022-0 Yes 10mg Take 1 Univ ers 10 mg 3-22 tablet by ity of tablet 11:10: mouth in [place] [address] the Medical morning. Branch acetaminoph 2022-0 2022- No 1{tbl} Take 1 U nivers en-codeine 3-22 -22 tablet by ity of 300-60 mg 08:24: 00:00 mouth [place] tablet 15 :00 every 6 Medical (six) Branch hours as needed for Pain. ondansetron 2022-0 Yes [id number] 4mg Take 1 Univers 4 mg 3-22 [id number] tablet by ity of disintegrat 00:00: mouth [place] ing tablet 00 every 8 Medica l (eight) Branch hours as needed for Nausea and Vomiting (N/V). ondansetron 2023-0 Yes [id number] 4mg Take 1 Univers 4 mg 3-22 [id number] tablet by ity of disintegrat 00:00: mouth [place] ing tablet 00 every 8 Medica l (eight) Branch hours as needed for Nausea and Vomiting (N/V). ondansetron 2023-0 Yes [id number] 4mg Take 1 Univers 4 mg 3-22 [id number] tablet by ity of disintegrat 00:00: mouth [place] ing tablet 00 every 8 Medica l (eight) Branch hours as needed for Nausea and Vomiting (N/V). ondansetron 3-0 Yes [id number] 4mg Take 1 Univers 4 mg 3-22 [id number] tablet by ity of disintegrat 00:00: mouth [place] ing tablet 00 every 8 Medica l (eight) Branch hours as needed for Nausea and Vomiting (N/V). ondansetron 3-0 Yes [id number] 4mg Take 1 Univers 4 mg 3-22 [id number] tablet by ity of disintegrat 00:00: mouth [place] ing tablet 00 every 8 Medica l (eight) Branch hours as needed for Nausea and Vomiting (N/V). ondansetron 3-0 Yes [id number] 4mg Take 1 Univers 4 mg 3-22 [id number] tablet by ity of disintegrat 00:00: mouth [place] ing tablet 00 every 8 Medica l (eight) Branch hours as needed for Nausea and Vomiting (N/V). ondansetron 2023-0 Yes [id number] 4mg Take 1 Univers 4 mg 3-22 [id number] tablet by ity of disintegrat 00:00: mouth [place] ing tablet 00 every 8 Medica l (eight) Branch hours as needed for Nausea and Vomiting (N/V). ondansetron 2023-0 Yes [id number] 4mg Take 1 Univers 4 mg 3-22 [id number] tablet by ity of disintegrat 00:00: mouth [place] ing tablet 00 every 8 Medica l (eight) Branch hours as needed for Nausea and Vomiting (N/V). ondansetron 2023-0 Yes [id number] 4mg Take 1 Univers 4 mg 06-22 [id number] tablet by ity of disintegrat 00:00: mouth [place] ing tablet 00 every 8 Medica l (eight) Branch hours as needed for Nausea and Vomiting (N/V). ondansetron Yes [id number] 4mg Take 1 Univers 4 mg 06-22 [id number] tablet by ity of disintegrat 00:00: mouth [place] ing tablet 00 every 8 Medica l (eight) Branch hours as needed for Nausea and Vomiting (N/V). aspirin 2022- Yes [id number] 325mg Take 1 Univers E.C. 325 mg 06-22 [id number] tablet by ity of EC tablet 00:00: 04:59 mouth in [facility] as 00 :00 the [facility] for 28 days. aspirin 2022- Yes [id number] 325mg Take 1 Univers E.C. 325 mg 06-22 [id number] tablet by ity of EC tablet 00:00: 04:59 mouth in [facility] as 00 :00 the [facility] for 28 days. aspirin 2022- Yes [id number] 325mg Take 1 Univers E.C. 325 mg 06-22 [id number] tablet by ity of EC tablet 00:00: 04:59 mouth in [facility] as 00 :00 the [facility] for 28 days. methocarbam 2022- Yes [id number] 500mg Take 1 Univers oL 500 mg 06-22 [id number] tablet by it y of tablet 00:00: 04:59 mouth in [place] 00 :00 the [facility] Branch and 1 tablet at noon and 1 tablet in the evening. Do all this for 14 days. methocarbam 2022- Yes [id number] 500mg Take 1 Univers oL 500 mg 06-22 [id number] tablet by it y of tablet 00:00: 04:59 mouth in [place] 00 :00 the [facility] Branch and 1 tablet at noon and 1 tablet in the evening. Do all this for 14 days. HYDROcodone 2022- Yes [id number] 1{tbl} Take 1 U nivers -acetaminop 06-22 03-30 tablet by it y of hen (NORCO) 00:00: 04:59 mouth [place] 10-325 mg 00 :00 every 6 Medical tablet (six) Branch hours as needed for Pain (scale 7-10) for up to 7 days. Indication s: acute pain HYDROcodone 2022- Yes [id number] 1{tbl} Take 1 U nivers -acetaminop 3-22 03-30 tablet by it y of hen (NORCO) 00:00: 04:59 mouth [place] 10-325 mg 00 :00 every 6 Medical tablet (six) Branch hours as needed for Pain (scale 7-10) for up to 7 days. Indication s: acute pain PROPRANOLOL 2022-2022- No Take by Un liliane -HYDROCHLOR 3-16 03-16 mouth. ity o f OTHIAZID 17:12: 00:00 [place] ORAL 08 :00 Medical Branch propranoloL 2022-0 Yes 10mg Take 1 Univ ers 10 mg 3-16 tablet by ity of tablet 17:12: mouth in [place] 04 the Medical morning. Branch QUEtiapine 0 Yes 400mg Take 1 Univ ers (SEROQUEL 3-16 tablet by ity o f XR) 400 mg 17:03: mouth in [place] 24 hr 55 the Medical tablet morning. Branch acetaminoph 0 Yes 1{tbl} Take 1 Un liliane en-codeine 3-16 tablet by ity of 300-60 mg 17:03: mouth [place] tablet 55 every 6 Medical (six) Branch hours as needed for Pain. ubrogepant Yes Take by Univ ers (UBRELVY) 3-16 mouth as ity of 50 mg Tab 17:03: needed. [place] 55 Medical Branch FENTanyl PF 2022- No 75ug 75 mcg, Un liliane (SUBLIMAZE 06-07 Slow IV ity o f (PF)) 02:45: 01:47 Push, [place] injection 00 :00 ONCE, 1 Medical 75 mcg dose, On Branch 06/06/22 at 2045, STAT proMETHazin 2022- No 25mg 25 mg, IV Univers e 06-07 Piggyback, ity of (PHENERGAN) 01:45: 01:47 ONCE, 1 [place] 25 mg in 00 :00 dose, On Medical NaCl 0.9% 3/6/23 Bran ch (NS) 50 mL at 1945, IV HUNG piggyback iopamidol 2022- No [id number] 80mL 80 mL, U nivers (ISOVUE 06-07 Intravenou ity o f 370-500 mL) 00:30: 00:30 s, ONCE, 1 [place] injection 00 :00 dose, On Medica l 80 mL Mon06/06/22 Branch at 1830, Routine ondansetron 2022- No 4mg 4 mg, Slow Univers (ZOFRAN 06-06 IV Push, ity of (PF)) 23:45: 00:17 ONCE, 1 [place] injection 4 00 :00 dose, On Medi [place] mg Mon06/06/22 Branch at 1745, HUNG FENTanyl PF No 75ug 75 mcg, Un liliane (SUBLIMAZE 06-06 Slow IV ity o f (PF)) 23:45: 00:21 Push, [place] injection 00 :00 ONCE, 1 Medical 75 mcg dose, On Branch Mon06/06/22 at 1745, STAT proMETHazin 2022-0 Yes [id number] 25mg Take 1 Univers e 25 mg 3-06 tablet by ity of tablet 00:00: mouth [place] 00 every 6 Medical (six) Branch hours as needed for Nausea and Vomiting (N/V). proMETHazin 3-0 Yes [id number] 25mg Take 1 Univers e 25 mg 3-06 tablet by ity of tablet 00:00: mouth [place] 00 every 6 Medical (six) Branch hours as needed for Nausea and Vomiting (N/V). proMETHazin 3-0 Yes [id number] 25mg Take 1 Univers e 25 mg 3-06 tablet by ity of tablet 00:00: mouth [place] 00 every 6 Medical (six) Branch hours as needed for Nausea and Vomiting (N/V). proMETHazin 2023-0 Yes [id number] 25mg Take 1 Univers e 25 mg 3-06 tablet by ity of tablet 00:00: mouth [place] 00 every 6 Medical (six) Branch hours as needed for Nausea and Vomiting (N/V). proMETHazin 2023-0 Yes [id number] 25mg Take 1 Univers e 25 mg 3-06 tablet by ity of tablet 00:00: mouth [place] 00 every 6 Medical (six) Branch hours as needed for Nausea and Vomiting (N/V). proMETHazin 2022-0 Yes [id number] 25mg Take 1 Univers e 25 mg 3-06 tablet by ity of tablet 00:00: mouth [place] 00 every 6 Medical (six) Branch hours as needed for Nausea and Vomiting (N/V). proMETHazin 2022-0 Yes [id number] 25mg Take 1 Univers e 25 mg 3-06 tablet by ity of tablet 00:00: mouth [place] 00 every 6 Medical (six) Branch hours as needed for Nausea and Vomiting (N/V). proMETHazin 2022-0 Yes [id number] 25mg Take 1 Univers e 25 mg 3-06 tablet by ity of tablet 00:00: mouth [place] 00 every 6 Medical (six) Branch hours as needed for Nausea and Vomiting (N/V). proMETHazin 2022-0 Yes [id number] 25mg Take 1 Univers e 25 mg 3-06 tablet by ity of tablet 00:00: mouth [place] 00 every 6 Medical (six) Branch hours as needed for Nausea and Vomiting (N/V). proMETHazin 2022-0 Yes [id number] 25mg Take 1 Univers e 25 mg 3-06 tablet by ity of tablet 00:00: mouth [place] 00 every 6 Medical (six) Branch hours as needed for Nausea and Vomiting (N/V). proMETHazin 2022-0 Yes [id number] 25mg Take 1 Univers e 25 mg 3-06 tablet by ity of tablet 00:00: mouth [place] 00 every 6 Medical (six) Branch hours as needed for Nausea and Vomiting (N/V). No known No No known Unive rs medications 1- medication it y of 11:19: s [place] 53 Medical Branch Dose 2021-04 No Unknown 2-17 00:00: 00 ALBUTEROL 2021-04 No PA HFA 200 2-17 INH 00:00: 00 Dose 2021-04 No Unknown 2-17 00:00: 00 ALBUTEROL 2021-04 No PA HFA 200 2-17 INH 00:00: 00 TAKE 1 2021-04 No TABLET 2-15 DAILY. 00:00: 00 TAKE 1 2021-04 No TABLET AT 2-15 BEDTIME. 00:00: 00 WELLBUTRIN 2021-04 No XL 150MG 2-15 TAB 00:00: 00 Dose 2021-04 No Unknown 2-15 00:00: 00 TAKE ONE 2021-04 No (1) TABLET 2-15 BY MOUTH 00:00: NIGHTLY. 00 Dose 2021-04 No Unknown 2-15 00:00: 00 TAKE ONE 2021-04 No (1) 2-15 TABLET(S) 00:00: BY MOUTH 00 ONCE A DAY. WELLBUTRN 2021-04 No XL 300MG 2-15 TAB 00:00: 00 LEVOFLOXACI 2021-04 No N 500MG TAB 2-15 00:00: 00 MONTELUKAST 2021-04 No SODIUM 10MG 2-15 TAB 00:00: 00 Dose 2021-04 No Unknown 2-15 00:00: 00 TAKE 1 2021-04 No TABLET 2-15 DAILY. 00:00: 00 TAKE 1 2021-04 No TABLET AT 2-15 BEDTIME. 00:00: 00 WELLBUTRIN 2021-04 No XL 150MG 2-15 TAB 00:00: 00 Dose 2021-04 No Unknown 2-15 00:00: 00 TAKE ONE 2021-04 No (1) TABLET 2-15 BY MOUTH 00:00: NIGHTLY. 00 Dose 2021-04 No Unknown 2-15 00:00: 00 TAKE ONE 2021-04 No (1) 2-15 TABLET(S) 00:00: BY MOUTH 00 ONCE A DAY. WELLBUTRN 2021-04 No XL 300MG 2-15 TAB 00:00: 00 LEVOFLOXACI 2021-04 No N 500MG TAB 2-15 00:00: 00 MONTELUKAST 2021-04 No SODIUM 10MG 2-15 TAB 00:00: 00 Dose 2021-04 No Unknown 2-15 00:00: 00 Dose 2021-04 No Unknown 2-13 00:00: 00 Dose 2021-04 No Unknown 2-13 00:00: 00 WELLBUTRIN 2021-04 No XL XL 150MG 2-13 TAB 00:00: 00 Dose 2021-04 No Unknown 2-13 00:00: 00 QUETIAPINE 2021-04 No FUMARATE 2-13 300MG TAB 00:00: 00 Dose 2021-04 No Unknown 2-13 00:00: 00 Dose 2021-04 No Unknown 2-13 00:00: 00 Dose 2021-04 No Unknown 2-13 00:00: 00 BENZONATATE 2021-04 No 100MG 2-13 00:00: 00 Dose 2021-04 No Unknown 2-13 00:00: 00 Dose 2021-04 No Unknown 2-13 00:00: 00 RELISTOR 2021-04 No 150MG TAB 2-13 00:00: 00 Dose 2021-04 No Unknown 2-13 00:00: 00 BROMPHEN/PS 2021-04 No EUDOEPHEDRI 2-13 NE SYP 00:00: 00 MIRTAZAPINE 2021-04 No 15MG TAB 2-13 00:00: 00 TRAZODONE 2021-04 No HYDROCHLORI 2-13 DE 50MG TAB 00:00: 00 Dose 2021-04 No Unknown 2-13 00:00: 00 Dose 2021-04 No Unknown 2-13 00:00: 00 AZITHROMYCI 2021-04 No N 250MG TAB 2-13 00:00: 00 PANTOPRAZOL 2021-04 No E SODIUM 2-13 40MG TAB 00:00: 00 TRIAMCINOLO 2021-04 No NE 2-13 ACETONIDE 00:00: 0.025% CRE 00 MIRTAZAPINE 2021-04 No 30MG TAB 2-13 00:00: 00 DEXAMETHASO 2021-04 No NE 2MG TAB 2-13 00:00: 00 Dose 2021-04 No Unknown 2-13 00:00: 00 DEPO-ACOUSTICAL INSTALLER 2021-04 No A 2-13 CONTRACEPTI 00:00: V 150MG/ML 00 SYN TAKE ONE 2021-04 No (1) 2-13 TABLET(S) 00:00: BY MOUTH 00 ONCE A DAY. UBRELVY 2021-04 No 50MG TAB 2-13 00:00: 00 BENZONATATE 2021-04 No 200MG 2-13 00:00: 00 Dose 2021-04 No Unknown 2-13 00:00: 00 Dose 2021-04 No Unknown 2-13 00:00: 00 Dose 2021-04 No Unknown 2-13 00:00: 00 Dose 2021-04 No Unknown 2-13 00:00: 00 Dose 2021-04 No Unknown 2-13 00:00: 00 WELLBUTRIN 2021-04 No XL XL 150MG 2-13 TAB 00:00: 00 Dose 2021-04 No Unknown 2-13 00:00: 00 QUETIAPINE 2021-04 No FUMARATE 2-13 300MG TAB 00:00: 00 Dose 2021-04 No Unknown 2-13 00:00: 00 Dose 2021-04 No Unknown 2-13 00:00: 00 Dose 2021-04 No Unknown 2-13 00:00: 00 BENZONATATE 2021-04 No 100MG 2-13 00:00: 00 Dose 2021-04 No Unknown 2-13 00:00: 00 Dose 2021-04 No Unknown 2-13 00:00: 00 RELISTOR 2021-04 No 150MG TAB 2-13 00:00: 00 Dose 2021-04 No Unknown 2-13 00:00: 00 BROMPHEN/PS 2021-04 No EUDOEPHEDRI 2-13 NE SYP 00:00: 00 MIRTAZAPINE 2021-04 No 15MG TAB 2-13 00:00: 00 TRAZODONE 2021-04 No HYDROCHLORI 2-13 DE 50MG TAB 00:00: 00 Dose 2021-04 No Unknown 2-13 00:00: 00 Dose 2021-04 No Unknown 2-13 00:00: 00 AZITHROMYCI 2021-04 No N 250MG TAB 2-13 00:00: 00 PANTOPRAZOL 2021-04 No E SODIUM 2-13 40MG TAB 00:00: 00 TRIAMCINOLO 2021-04 No NE 2-13 ACETONIDE 00:00: 0.025% CRE 00 MIRTAZAPINE 2021-04 No 30MG TAB 2-13 00:00: 00 DEXAMETHASO 2021-04 No NE 2MG TAB 2-13 00:00: 00 Dose 2021-04 No Unknown 2-13 00:00: 00 DEPO-ACOUSTICAL INSTALLER 2021-04 No A 2-13 CONTRACEPTI 00:00: V 150MG/ML 00 SYN TAKE ONE 2021-04 No (1) 2-13 TABLET(S) 00:00: BY MOUTH 00 ONCE A DAY. UBRELVY 2021-04 No 50MG TAB 2-13 00:00: 00 BENZONATATE 2021-04 No 200MG 2-13 00:00: 00 Dose 2021-04 No Unknown 2-13 00:00: 00 Dose 2021-04 No Unknown 2-13 00:00: 00 Dose 2021- No Unknown 2-13 00:00: 00 No known 2021- No No known Unive rs medications 1-16 medication it y of 09:45: [address] No known 2021-04 No No known Unive rs medications 1-16 medication it y of 09:45: [address] No known 2021-04 No No known Unive rs medications 1-16 medication it y of 09:45: [address] No known 2021-04 No No known Unive rs medications 1-16 medication it y of 09:45: [address] No known 2021-04 No No known Unive rs medications 1-16 medication it y of 09:45: [address] No known 2021-04 No No known Unive rs medications 1-16 medication it y of 09:45: [address] No known 2021-04 No No known Unive rs medications 1-16 medication it y of 09:45: [address] No known 2021-04 No No known Unive rs medications 1-16 medication it y of 09:45: [address] No known 2021-04 No No known Unive rs medications 1-16 medication it y of 09:45: [address] No known 2021-04 No No known Unive rs medications 1-16 medication it y of 09:45: [address] No known 2021-04 No No known Unive rs medications 1-16 medication it y of 09:45: [address] No known 2021-04 No No known Unive rs medications 1-16 medication it y of 09:45: [address] No known 2021-04 No No known Unive rs medications 1-16 medication it y of 09:45: [address] No known 2021-04 No No known Unive rs medications 1-16 medication it y of 09:45: [address] No known 2021-04 No No known Unive rs medications 1-16 medication it y of 09:45: [address] HYDROcodone 2021-04- No 1{tbl} 1 tablet, [facility] -acetaminop 1-12 11-12 Oral, ONCE i ty of hen (NORCO) 23:30: 22:36 NOW, 1 Derik as 10-325 mg 00 :00 dose, On Medica l tablet 1 Sat Branch tablet 02/12/22 at 1730, Routine ibuprofen 2021-04- No 800mg 800 mg, Uni vers (IBU) 04-14 Oral, ity of tablet 800 22:45: 22:37 ONCE, 1 [place] as mg 00 :00 dose, On Medical Sat Branch 02/12/22 at 1645, [facility] ondansetron 2021-04- No 4mg 4 mg, Univ ers (ZOFRAN-ODT 04-14 Oral, ity of ) 22:41: 22:42 ONCE, 1 [place] disintegrat 00 :00 dose, On Medi [place] tablet Sat Branch 4 mg 02/12/22 at 1645, Routine No known 2021-04 No No known Unive rs medications 04-14 medication it y of 16:21: s [place] [id number] [facility] QUETIAPINE 2021-04 No 400 400MG TAB -04 00:00: 00 QUETIAPINE 2021-04 No FUMARATE 1-04 400MG TAB 00:00: 00 QUETIAPINE 2021-04 No 400MG TAB -04 00:00: 00 QUETIAPINE 2021-04 No FUMARATE 1-04 400MG TAB 00:00: 00 QUETIAPINE 2021-04 No 400MG TAB -04 00:00: 00 QUETIAPINE 2021-04 No FUMARATE 1-04 400MG TAB 00:00: 00 Dose 2021-04 No 75 Unknown 1- 00:00: 00 Dose 2021-04 No Unknown 1-02 00:00: 00 Dose 2021-04 No Unknown 1-02 00:00: 00 FLUTICASONE 2021-04 No PROPIONATE 0-03 50MCG SPR 00:00: 00 FLUTICASONE 2021-04 No PROPIONATE 0-03 50MCG SPR 00:00: 00 FLUTICASONE 2021-04 No PROPIONATE 0-03 50MCG SPR 00:00: 00 FLUTICASONE 2021-04 No PROPIONATE 0-03 50MCG SPR 00:00: 00 Dose 2021-0 No Unknown - 00:00: 00 Dose 2021-0 No Unknown 12-24 00:00: 00 Dose 2022-0 No Unknown 12-24 00:00: 00 PROPRANOLOL 2022-0 No HYDROCHLORI 9-23 DE 10MG TAB 00:00: 00 PROPRANOLOL 2022-0 No HYDROCHLORI 9-23 DE 10MG TAB 00:00: 00 TAKE ONE 2021-0 No 50 (1) 9-21 TABLET(S) 00:00: BY MOUTH 00 TWICE A DAY NEEDED. TAKE ONE 2021-0 No 50 (1) 9-21 TABLET(S) 00:00: BY MOUTH 00 TWICE A DAY NEEDED. TAKE ONE 2021-0 No 50 (1) 9-21 TABLET(S) 00:00: BY MOUTH 00 TWICE A DAY NEEDED. TAKE ONE 2021-0 No 50 (1) 9-21 TABLET(S) 00:00: BY MOUTH 00 TWICE A DAY NEEDED. TAKE ONE 2021-0 No 50 (1) 9-21 TABLET(S) 00:00: BY MOUTH 00 TWICE A DAY NEEDED. Dose 2-0 No Unknown 12-16 00:00: 00 Dose 2022-0 No Unknown 12-16 00:00: 00 Dose 2-0 No Unknown 12-16 00:00: 00 PROAIR HFA 2022-0 No INH 12-16 00:00: 00 PROAIR HFA 2022-0 No INH 12-16 00:00: 00 Dose 2-0 No Unknown 12-16 00:00: 00 Dose 2-0 No 4 Unknown 12-03 00:00: 00 Dose 2022-0 No 4 Unknown 12-03 00:00: 00 Dose 2022-0 No 4 Unknown 12-03 00:00: 00 Dose 2022-0 No Unknown 12-03 00:00: 00 Dose 2-0 No Unknown 12-03 00:00: 00 Dose 2022-0 No 4 Unknown 12-03 00:00: 00 Dose 2022-0 No 4 Unknown 12-03 00:00: 00 LAMICTAL 2-0 No 200MG TAB 8-15 00:00: 00 LAMICTAL 2-0 No 200MG TAB 8-15 00:00: 00 LAMICTAL 2022-0 No 200MG TAB 8-15 00:00: 00 LAMICTAL 2022-0 No 200MG TAB 8-15 00:00: 00 LAMICTAL 2022-0 No 200MG TAB 8-15 00:00: 00 &lt 2022-0 No 200 8-15 00:00: 00 LAMICTAL 2022-0 No 200MG TAB 8-15 00:00: 00 &lt 2022-0 No 150 8-10 00:00: 00 Dose 2022-0 No 300 Unknown 8-10 00:00: 00 Dose 2022-0 No 300 Unknown 8-10 00:00: 00 Dose 2022-0 No 200 Unknown 8-10 00:00: 00 Dose 2022-0 No 600 Unknown 8-10 00:00: 00 Dose 2022-0 No 100 Unknown 8-10 00:00: 00 &lt 2022-0 No 50 8-10 00:00: 00 Dose 2022-0 No 150 Unknown 8-10 00:00: 00 &lt 2022-0 No 300 8-10 00:00: 00 TAKE ONE 2022-0 No 4 (1) 8-10 TABLET(S) 00:00: BY MOUTH 00 EVERY TWELVE HOURS NEEDED FOR NAUSEA. &lt 2022-0 No 100 8-10 00:00: 00 TAKE ONE 2022-0 No 4 (1) 8-10 TABLET(S) 00:00: BY MOUTH 00 EVERY TWELVE HOURS NEEDED FOR NAUSEA. &lt 2022-0 No 50 8-10 00:00: 00 &lt 2022-0 No 200 8-10 00:00: 00 TAKE ONE 2022-0 No 50 (1) 8-10 TABLET(S) 00:00: BY MOUTH 00 TWICE A DAY NEEDED. &lt 2022-0 No 150 8-10 00:00: 00 Dose 2022-0 No 300 Unknown 8-10 00:00: 00 Dose 2022-0 No 300 Unknown 8-10 00:00: 00 Dose 2022-0 No 200 Unknown 8-10 00:00: 00 Dose 2022-0 No 600 Unknown 8-10 00:00: 00 Dose 2022-0 No 100 Unknown 8-10 00:00: 00 &lt 2022-0 No 50 8-10 00:00: 00 Dose 2022-0 No 150 Unknown 8-10 00:00: 00 &lt 2022-0 No 300 8-10 00:00: 00 TAKE ONE 2022-0 No 4 (1) 8-10 TABLET(S) 00:00: BY MOUTH 00 EVERY TWELVE HOURS NEEDED FOR NAUSEA. &lt 2022-0 No 100 8-10 00:00: 00 TAKE ONE 2-0 No 4 (1) 8-10 TABLET(S) 00:00: BY MOUTH 00 EVERY TWELVE HOURS NEEDED FOR NAUSEA. &lt 2022-0 No 50 8-10 00:00: 00 &lt 2022-0 No 200 8-10 00:00: 00 TAKE ONE 2-0 No 50 (1) 8-10 TABLET(S) 00:00: BY MOUTH 00 TWICE A DAY NEEDED. &lt 2022-0 No 150 8-10 00:00: 00 Dose 2022-0 No 300 Unknown 8-10 00:00: 00 Dose 2022-0 No 300 Unknown 8-10 00:00: 00 Dose 2022-0 No 200 Unknown 8-10 00:00: 00 Dose 2022-0 No 600 Unknown 8-10 00:00: 00 Dose 2022-0 No 100 Unknown 8-10 00:00: 00 &lt 2022-0 No 50 8-10 00:00: 00 Dose 2022-0 No 150 Unknown 8-10 00:00: 00 &lt 2022-0 No 300 8-10 00:00: 00 TAKE ONE 2-0 No 4 (1) 8-10 TABLET(S) 00:00: BY MOUTH 00 EVERY TWELVE HOURS NEEDED FOR NAUSEA. &lt 2-0 No 100 8-10 00:00: 00 TAKE ONE 2-0 No 4 (1) 8-10 TABLET(S) 00:00: BY MOUTH 00 EVERY TWELVE HOURS NEEDED FOR NAUSEA. &lt 2022-0 No 50 8-10 00:00: 00 &lt 2022-0 No 200 8-10 00:00: 00 TAKE ONE 2-0 No 50 (1) 8-10 TABLET(S) 00:00: BY MOUTH 00 TWICE A DAY NEEDED. &lt 2022-0 No 150 8-10 00:00: 00 Dose 2022-0 No 300 Unknown 8-10 00:00: 00 Dose 2022-0 No 300 Unknown 8-10 00:00: 00 Dose 2022-0 No 200 Unknown 8-10 00:00: 00 Dose 2022-0 No 600 Unknown 8-10 00:00: 00 Dose 2022-0 No 100 Unknown 8-10 00:00: 00 &lt 2022-0 No 50 8-10 00:00: 00 Dose 2022-0 No 150 Unknown 8-10 00:00: 00 &lt 2022-0 No 300 8-10 00:00: 00 TAKE ONE 2022-0 No 4 (1) 8-10 TABLET(S) 00:00: BY MOUTH 00 EVERY TWELVE HOURS NEEDED FOR NAUSEA. &lt 2022-0 No 100 8-10 00:00: 00 TAKE ONE 2022-0 No 4 (1) 8-10 TABLET(S) 00:00: BY MOUTH 00 EVERY TWELVE HOURS NEEDED FOR NAUSEA. &lt 2022-0 No 50 8-10 00:00: 00 &lt 2022-0 No 200 8-10 00:00: 00 TAKE ONE 2-0 No 50 (1) 8-10 TABLET(S) 00:00: BY MOUTH 00 TWICE A DAY NEEDED. &lt 2022-0 No 150 8-10 00:00: 00 Dose 2022-0 No 300 Unknown 8-10 00:00: 00 Dose 2022-0 No 300 Unknown 8-10 00:00: 00 Dose 2022-0 No 200 Unknown 8-10 00:00: 00 Dose 2022-0 No 600 Unknown 8-10 00:00: 00 TRAZODONE 2-0 No HYDROCHLORI 8-10 DE 100MG 00:00: TAB 00 &lt 2-0 No 50 8-10 00:00: 00 Dose 2022-0 No 150 Unknown 8-10 00:00: 00 &lt 2022-0 No 300 8-10 00:00: 00 TAKE ONE 2022-0 No 4 (1) 8-10 TABLET(S) 00:00: BY MOUTH 00 EVERY TWELVE HOURS NEEDED FOR NAUSEA. &lt 2022-0 No 100 8-10 00:00: 00 TAKE ONE 2022-0 No 4 (1) 8-10 TABLET(S) 00:00: BY MOUTH 00 EVERY TWELVE HOURS NEEDED FOR NAUSEA. &lt 2022-0 No 50 8-10 00:00: 00 &lt 2022-0 No 200 8-10 00:00: 00 TAKE ONE 2022-0 No 50 (1) 8-10 TABLET(S) 00:00: BY MOUTH 00 TWICE A DAY NEEDED. &lt 2022-0 No 150 8-10 00:00: 00 Dose 2022-0 No 300 Unknown 8-10 00:00: 00 Dose 2022-0 No 300 Unknown 8-10 00:00: 00 Dose 2022-0 No 200 Unknown 8-10 00:00: 00 Dose 2022-0 No 600 Unknown 8-10 00:00: 00 TRAZODONE 2-0 No HYDROCHLORI 8-10 DE 100MG 00:00: TAB 00 &lt 2022-0 No 50 8-10 00:00: 00 Dose 2022-0 No 150 Unknown 8-10 00:00: 00 &lt 2022-0 No 300 8-10 00:00: 00 TAKE ONE 2-0 No 4 (1) 8-10 TABLET(S) 00:00: BY MOUTH 00 EVERY TWELVE HOURS NEEDED FOR NAUSEA. &lt 2022-0 No 100 8-10 00:00: 00 TAKE ONE 2-0 No 4 (1) 8-10 TABLET(S) 00:00: BY MOUTH 00 EVERY TWELVE HOURS NEEDED FOR NAUSEA. &lt 2022-0 No 50 8-10 00:00: 00 &lt 2022-0 No 200 8-10 00:00: 00 TAKE ONE 2-0 No 50 (1) 8-10 TABLET(S) 00:00: BY MOUTH 00 TWICE A DAY NEEDED. &lt 2-0 No 150 8-10 00:00: 00 Dose 2022-0 No 300 Unknown 8-10 00:00: 00 Dose 2022-0 No 300 Unknown 8-10 00:00: 00 Dose 2022-0 No 200 Unknown 8-10 00:00: 00 Dose 2022-0 No 600 Unknown 8-10 00:00: 00 Dose 2022-0 No 100 Unknown 8-10 00:00: 00 &lt 2022-0 No 50 8-10 00:00: 00 Dose 2022-0 No 150 Unknown 8-10 00:00: 00 &lt 2022-0 No 300 8-10 00:00: 00 TAKE ONE 2-0 No 4 (1) 8-10 TABLET(S) 00:00: BY MOUTH 00 EVERY TWELVE HOURS NEEDED FOR NAUSEA. &lt 2022-0 No 100 8-10 00:00: 00 TAKE ONE 2022-0 No 4 (1) 8-10 TABLET(S) 00:00: BY MOUTH 00 EVERY TWELVE HOURS NEEDED FOR NAUSEA. &lt 2022-0 No 50 8-10 00:00: 00 &lt 2022-0 No 200 8-10 00:00: 00 TAKE ONE 2022-0 No 50 (1) 8-10 TABLET(S) 00:00: BY MOUTH 00 TWICE A DAY NEEDED. &lt 2022-0 No 150 8-10 00:00: 00 Dose 2022-0 No 300 Unknown 8-10 00:00: 00 Dose 2022-0 No 300 Unknown 8-10 00:00: 00 Dose 2022-0 No 200 Unknown 8-10 00:00: 00 Dose 2022-0 No 600 Unknown 8-10 00:00: 00 Dose 2022-0 No 100 Unknown 8-10 00:00: 00 &lt 2022-0 No 50 8-10 00:00: 00 Dose 2022-0 No 150 Unknown 8-10 00:00: 00 &lt 2022-0 No 300 8-10 00:00: 00 TAKE ONE 2022-0 No 4 (1) 8-10 TABLET(S) 00:00: BY MOUTH 00 EVERY TWELVE HOURS NEEDED FOR NAUSEA. &lt 2022-0 No 100 8-10 00:00: 00 TAKE ONE 2022-0 No 4 (1) 8-10 TABLET(S) 00:00: BY MOUTH 00 EVERY TWELVE HOURS NEEDED FOR NAUSEA. &lt 2022-0 No 50 8-10 00:00: 00 &lt 2022-0 No 200 8-10 00:00: 00 TAKE ONE 2022-0 No 50 (1) 8-10 TABLET(S) 00:00: BY MOUTH 00 TWICE A DAY NEEDED. Dose 2022-0 No 600 Unknown 09 00:00: 00 TAKE ONE 2022-0 No 75 (1) 8-09 TABLET(S) 00:00: BY MOUTH 00 TWICE A DAY NEEDED. Dose 2022-0 No 600 Unknown 11-09 00:00: 00 TAKE ONE 2022-0 No 75 (1) 8-09 TABLET(S) 00:00: BY MOUTH 00 TWICE A DAY NEEDED. Dose 2022-0 No 600 Unknown 8 00:00: 00 TAKE ONE 2022-0 No 75 (1) 8-09 TABLET(S) 00:00: BY MOUTH 00 TWICE A DAY NEEDED. Dose 2022-0 No 600 Unknown 11-09 00:00: 00 TAKE ONE 2022-0 No 75 (1) 8-09 TABLET(S) 00:00: BY MOUTH 00 TWICE A DAY NEEDED. Dose 2022-0 No 600 Unknown 11-09 00:00: 00 TAKE ONE 2022-0 No 75 (1) 8-09 TABLET(S) 00:00: BY MOUTH 00 TWICE A DAY NEEDED. Dose 2022-0 No 600 Unknown 11-09 00:00: 00 TAKE ONE 2022-0 No 75 (1) 8-09 TABLET(S) 00:00: BY MOUTH 00 TWICE A DAY NEEDED. Dose 2022-0 No 600 Unknown 11-09 00:00: 00 TAKE ONE 2022-0 No 75 (1) 8-09 TABLET(S) 00:00: BY MOUTH 00 TWICE A DAY NEEDED. Dose 2022-0 No 600 Unknown 11-09 00:00: 00 TAKE ONE 2022-0 No 75 (1) 8-09 TABLET(S) 00:00: BY MOUTH 00 TWICE A DAY NEEDED. &lt 2022-0 No 400 8- 00:00: 00 Dose 2022-0 No Unknown 8 00:00: 00 &lt 2022-0 No 400 8- 00:00: 00 Dose 2022-0 No Unknown 8 00:00: 00 &lt 2022-0 No 400 8- 00:00: 00 Dose 2022-0 No Unknown 8 00:00: 00 &lt 2022-0 No 400 8- 00:00: 00 Dose 2022-0 No Unknown 8 00:00: 00 &lt 2022-0 No 400 8- 00:00: 00 Dose 2022-0 No Unknown 8 00:00: 00 &lt 2022-0 No 400 8- 00:00: 00 Dose 2022-0 No Unknown 8 00:00: 00 &lt 2022-0 No 400 8- 00:00: 00 Dose 2022-0 No Unknown 8 00:00: 00 &lt 2022-0 No 400 8- 00:00: 00 Dose 2022-0 No Unknown 8- 00:00: 00 &lt 2022-0 No 400 8-06 00:00: 00 &lt 2022-0 No 250 8-06 00:00: 00 &lt 2022-0 No 400 8-06 00:00: 00 &lt 2022-0 No 250 8-06 00:00: 00 &lt 2022-0 No 400 8-06 00:00: 00 &lt 2022-0 No 250 8-06 00:00: 00 &lt 2022-0 No 400 8-06 00:00: 00 &lt 2022-0 No 250 8-06 00:00: 00 &lt 2022-0 No 400 8-06 00:00: 00 &lt 2022-0 No 250 8-06 00:00: 00 &lt 2022-0 No 400 8-06 00:00: 00 &lt 2022-0 No 250 8-06 00:00: 00 &lt 2022-0 No 400 8-06 00:00: 00 &lt 2022-0 No 250 8-06 00:00: 00 &lt 2022-0 No 400 8-06 00:00: 00 &lt 2022-0 No 250 8-06 00:00: 00 Wellbutrin 2022-0 No 1mg XL 150 mg 8-04 24 hr 00:00: tablet, 00 extended release propranolol 2022-0 No 1mg 10 mg 8-04 tablet 00:00: 00 Lamictal 2022-0 No 1mg 200 mg 8-04 tablet 00:00: 00 Dose 2022-0 No Unknown 8-04 00:00: 00 mirtazapine 2022-0 No 1mg 45 mg 8-04 tablet 00:00: 00 &lt 2022-0 No 10 8-04 00:00: 00 Wellbutrin 2022-0 No 1mg XL 150 mg 8-04 24 hr 00:00: tablet, 00 extended release propranolol 2022-0 No 1mg 10 mg 8-04 tablet 00:00: 00 Lamictal 2022-0 No 1mg 200 mg 8-04 tablet 00:00: 00 Dose 2022-0 No Unknown 8-04 00:00: 00 mirtazapine 2022-0 No 1mg 45 mg 8-04 tablet 00:00: 00 &lt 2022-0 No 10 8-04 00:00: 00 Wellbutrin 2022-0 No 1mg XL 150 mg 8-04 24 hr 00:00: tablet, 00 extended release propranolol 2022-0 No 1mg 10 mg 8-04 tablet 00:00: 00 Lamictal 2022-0 No 1mg 200 mg 8-04 tablet 00:00: 00 Dose 2022-0 No Unknown 8- 00:00: 00 mirtazapine 2022-0 No 1mg 45 mg 8-04 tablet 00:00: 00 &lt 2022-0 No 10 8-04 00:00: 00 TAKE 1 2022-0 No TABLET 8-04 DAILY. 00:00: 00 TAKE 1 2022-0 No TABLET AT 8-04 BEDTIME. 00:00: 00 Dose 2022-0 No Unknown 8- 00:00: 00 Dose 2022-0 No Unknown 8- 00:00: 00 Dose 2022-0 No Unknown 8- 00:00: 00 &lt 2022-0 No 10 8- 00:00: 00 TAKE 1 2022-0 No TABLET 8-04 DAILY. 00:00: 00 TAKE 1 2022-0 No TABLET AT 8-04 BEDTIME. 00:00: 00 Dose 2022-0 No Unknown 8- 00:00: 00 Dose 2022-0 No Unknown 8- 00:00: 00 Dose 2022-0 No Unknown 8- 00:00: 00 &lt 2022-0 No 10 8- 00:00: 00 Wellbutrin 2022-0 No 1mg XL 150 mg 8- 24 hr 00:00: tablet, 00 extended release propranolol 2022-0 No 1mg 10 mg 8-04 tablet 00:00: 00 Lamictal 2022-0 No 1mg 200 mg 8-04 tablet 00:00: 00 Seroquel 2022-0 No 1mg 400 mg 8-04 tablet 00:00: 00 mirtazapine 2022-0 No 1mg 45 mg 8-04 tablet 00:00: 00 &lt 2022-0 No 10 8-04 00:00: 00 Wellbutrin 2022-0 No 1mg XL 150 mg 8-04 24 hr 00:00: tablet, 00 extended release propranolol 2022-0 No 1mg 10 mg 8-04 tablet 00:00: 00 Lamictal 2022-0 No 1mg 200 mg 8-04 tablet 00:00: 00 Seroquel 2022-0 No 1mg 400 mg 8-04 tablet 00:00: 00 mirtazapine 2022-0 No 1mg 45 mg 8-04 tablet 00:00: 00 &lt 2022-0 No 10 8-04 00:00: 00 Wellbutrin 2-0 No 1mg XL 150 mg 8-04 24 hr 00:00: tablet, 00 extended release propranolol 2-0 No 1mg 10 mg 8-04 tablet 00:00: 00 Lamictal 2022-0 No 1mg 200 mg 8-04 tablet 00:00: 00 Dose 2022-0 No Unknown 8-04 00:00: 00 mirtazapine 2022-0 No 1mg 45 mg 8-04 tablet 00:00: 00 &lt 2022-0 No 10 8- 00:00: 00 &lt 2022-0 No 7-29 00:00: 00 &lt 2022-0 No 50 7 00:00: 00 &lt 2022-0 No 100 7 00:00: 00 &lt 2022-0 No 100 7 00:00: 00 TAKE ONE 2-0 No 4 (1) 10-29 TABLET(S) 00:00: BY MOUTH 00 THREE TIMES A DAY NEEDED FOR PAIN. &lt 2022-0 No 150 10-29 00:00: 00 &lt 2022-0 No 150 10-29 00:00: 00 &lt 2022-0 No 10 10-29 00:00: 00 &lt 2022-0 No 300 10-29 00:00: 00 &lt 2022-0 No 7- 00:00: 00 Dose 2022-0 No 600 Unknown 10-29 00:00: 00 &lt 2022-0 No 7- 00:00: 00 &lt 2022-0 No 50 7 00:00: 00 &lt 2022-0 No 100 10-29 00:00: 00 &lt 2022-0 No 100 10-29 00:00: 00 TAKE ONE 2-0 No 4 (1) -29 TABLET(S) 00:00: BY MOUTH 00 THREE TIMES A DAY NEEDED FOR PAIN. &lt 2022-0 No 150 7 00:00: 00 &lt 2022-0 No 150 10-29 00:00: 00 &lt 2022-0 No 10 10-29 00:00: 00 &lt 2022-0 No 300 10-29 00:00: 00 &lt 2022-0 No 10-29 00:00: 00 Dose 2022-0 No 600 Unknown 10-29 00:00: 00 &lt 2022-0 No 10-29 00:00: 00 &lt 2022-0 No 50 10-29 00:00: 00 &lt 2022-0 No 100 10-29 00:00: 00 &lt 2022-0 No 100 10-29 00:00: 00 TAKE ONE 2-0 No 4 (1) 10-29 TABLET(S) 00:00: BY MOUTH 00 THREE TIMES A DAY NEEDED FOR PAIN. &lt 2022-0 No 150 10-29 00:00: 00 &lt 2022-0 No 150 10-29 00:00: 00 &lt 2022-0 No 10 10-29 00:00: 00 &lt 2022-0 No 300 10-29 00:00: 00 &lt 2022-0 No 10-29 00:00: 00 Dose 2022-0 No 600 Unknown 10-29 00:00: 00 &lt 2022-0 No 10-29 00:00: 00 &lt 2022-0 No 50 10-29 00:00: 00 &lt 2022-0 No 100 10-29 00:00: 00 &lt 2022-0 No 100 10-29 00:00: 00 TAKE ONE 2021-0 No 4 (1) 10-29 TABLET(S) 00:00: BY MOUTH 00 THREE TIMES A DAY NEEDED FOR PAIN. &lt 2022-0 No 150 10-29 00:00: 00 &lt 2022-0 No 150 10-29 00:00: 00 &lt 2022-0 No 10 10-29 00:00: 00 &lt 2022-0 No 300 10-29 00:00: 00 &lt 2022-0 No 10-29 00:00: 00 Dose 2022-0 No 600 Unknown 10-29 00:00: 00 &lt 2022-0 No 10-29 00:00: 00 &lt 2022-0 No 50 10-29 00:00: 00 &lt 2022-0 No 100 10-29 00:00: 00 &lt 2022-0 No 100 10-29 00:00: 00 TAKE ONE 2-0 No 4 (1) 10-29 TABLET(S) 00:00: BY MOUTH 00 THREE TIMES A DAY NEEDED FOR PAIN. &lt 2022-0 No 150 10-29 00:00: 00 &lt 2022-0 No 150 10-29 00:00: 00 &lt 2022-0 No 10 10-29 00:00: 00 &lt 2022-0 No 300 10-29 00:00: 00 &lt 2022-0 No 10-29 00:00: 00 Dose 2022-0 No 600 Unknown 10-29 00:00: 00 &lt 2022-0 No 10-29 00:00: 00 &lt 2022-0 No 50 10-29 00:00: 00 &lt 2022-0 No 100 10-29 00:00: 00 &lt 2022-0 No 100 10-29 00:00: 00 TAKE ONE 2021-0 No 4 (1) 10-29 TABLET(S) 00:00: BY MOUTH 00 THREE TIMES A DAY NEEDED FOR PAIN. &lt 2-0 No 150 10-29 00:00: 00 &lt 2022-0 No 150 10-29 00:00: 00 &lt 2022-0 No 10 10-29 00:00: 00 &lt 2022-0 No 300 10-29 00:00: 00 &lt 2022-0 No 10-29 00:00: 00 Dose 2022-0 No 600 Unknown 10-29 00:00: 00 &lt 2022-0 No 10-29 00:00: 00 &lt 2022-0 No 50 10-29 00:00: 00 &lt 2022-0 No 100 10-29 00:00: 00 &lt 2022-0 No 100 10-29 00:00: 00 TAKE ONE 2-0 No 4 (1) 10-29 TABLET(S) 00:00: BY MOUTH 00 THREE TIMES A DAY NEEDED FOR PAIN. &lt 2022-0 No 150 10-29 00:00: 00 &lt 2022-0 No 150 10-29 00:00: 00 &lt 2022-0 No 10 10-29 00:00: 00 &lt 2022-0 No 300 10-29 00:00: 00 &lt 2022-0 No 10-29 00:00: 00 Dose 2022-0 No 600 Unknown 10-29 00:00: 00 &lt 2022-0 No 7 00:00: 00 &lt 2022-0 No 50 10-29 00:00: 00 &lt 2022-0 No 100 10-29 00:00: 00 &lt 2022-0 No 100 10-29 00:00: 00 TAKE ONE 2-0 No 4 (1) 10-29 TABLET(S) 00:00: BY MOUTH 00 THREE TIMES A DAY NEEDED FOR PAIN. &lt 2022-0 No 150 10-29 00:00: 00 &lt 2022-0 No 150 10-29 00:00: 00 &lt 2022-0 No 10 10-29 00:00: 00 &lt 2022-0 No 300 10-29 00:00: 00 &lt 2022-0 No 7 00:00: 00 Dose 2022-0 No 600 Unknown 10-29 00:00: 00 &lt 2022-0 No 50 7 00:00: 00 &lt 2022-0 No 400 7 00:00: 00 &lt 2022-0 No 150 7 00:00: 00 &lt 2022-0 No 200 7 00:00: 00 Dose 2022-0 No Unknown 10-28 00:00: 00 TAKE ONE 2-0 No 4 (1) 10-28 TABLET(S) 00:00: BY MOUTH 00 THREE TIMES A DAY NEEDED. &lt 2022-0 No 50 7 00:00: 00 &lt 2022-0 No 400 7 00:00: 00 &lt 2022-0 No 150 7 00:00: 00 &lt 2022-0 No 200 7 00:00: 00 Dose 2022-0 No Unknown 10-28 00:00: 00 TAKE ONE 2-0 No 4 (1) 7- TABLET(S) 00:00: BY MOUTH 00 THREE TIMES A DAY NEEDED. &lt 2022-0 No 50 7- 00:00: 00 &lt 2022-0 No 400 7- 00:00: 00 &lt 2022-0 No 150 7- 00:00: 00 &lt 2022-0 No 200 7- 00:00: 00 Dose 2022-0 No Unknown 7-28 00:00: 00 TAKE ONE 2022-0 No 4 (1) 7-28 TABLET(S) 00:00: BY MOUTH 00 THREE TIMES A DAY NEEDED. &lt 2022-0 No 50 7-28 00:00: 00 &lt 2022-0 No 400 7-28 00:00: 00 &lt 2022-0 No 150 7-28 00:00: 00 &lt 2022-0 No 200 7-28 00:00: 00 Dose 2022-0 No Unknown 7-28 00:00: 00 TAKE ONE 2022-0 No 4 (1) 7-28 TABLET(S) 00:00: BY MOUTH 00 THREE TIMES A DAY NEEDED. &lt 2022-0 No 50 7-28 00:00: 00 &lt 2022-0 No 400 7-28 00:00: 00 &lt 2022-0 No 150 7-28 00:00: 00 &lt 2022-0 No 200 7-28 00:00: 00 Dose 2022-0 No Unknown 7-28 00:00: 00 TAKE ONE 2-0 No 4 (1) 7-28 TABLET(S) 00:00: BY MOUTH 00 THREE TIMES A DAY NEEDED. &lt 2022-0 No 50 7-28 00:00: 00 &lt 2022-0 No 400 7-28 00:00: 00 &lt 2022-0 No 150 7-28 00:00: 00 &lt 2022-0 No 200 7-28 00:00: 00 Dose 2022-0 No Unknown 7-28 00:00: 00 TAKE ONE 2-0 No 4 (1) 7-28 TABLET(S) 00:00: BY MOUTH 00 THREE TIMES A DAY NEEDED. &lt 2022-0 No 50 7-28 00:00: 00 &lt 2022-0 No 400 7-28 00:00: 00 &lt 2022-0 No 150 7-28 00:00: 00 &lt 2022-0 No 200 7-28 00:00: 00 Dose 2022-0 No Unknown 7-28 00:00: 00 TAKE ONE 2022-0 No 4 (1) 7-28 TABLET(S) 00:00: BY MOUTH 00 THREE TIMES A DAY NEEDED. &lt 2022-0 No 50 7-28 00:00: 00 &lt 2022-0 No 400 10-28 00:00: 00 &lt 2022-0 No 150 10-28 00:00: 00 &lt 2022-0 No 200 10-28 00:00: 00 Dose 2022-0 No Unknown 10-28 00:00: 00 TAKE ONE 2-0 No 4 (1) 10-28 TABLET(S) 00:00: BY MOUTH 00 THREE TIMES A DAY NEEDED. &lt 2022-0 No 50 10-28 00:00: 00 &lt 2022-0 No 400 10-28 00:00: 00 &lt 2022-0 No 150 10-28 00:00: 00 &lt 2022-0 No 200 10-28 00:00: 00 Dose 2022-0 No Unknown 10-28 00:00: 00 TAKE ONE 2022-0 No 4 (1) 10-28 TABLET(S) 00:00: BY MOUTH 00 THREE TIMES A DAY NEEDED. Wellbutrin 2-0 No 1mg XL 150 mg 10-06 24 hr 00:00: tablet, 00 extended release Dose 2022-0 No Unknown 10-06 00:00: 00 Seroquel 2022-0 No 1mg 400 mg 7- tablet 00:00: 00 Lamictal 2022-0 No 1mg 200 mg 7- tablet 00:00: 00 &lt 2022-0 No 50 10-06 00:00: 00 TAKE 1 2022-0 No 100 TABLET BY 7- MOUTH TWICE 00:00: A DAY 00 NEEDED Wellbutrin 2022-0 No 1mg XL 150 mg 10-06 24 hr 00:00: tablet, 00 extended release Dose 2022-0 No Unknown 10-06 00:00: 00 Seroquel 2022-0 No 1mg 400 mg 7- tablet 00:00: 00 Lamictal 2022-0 No 1mg 200 mg 7- tablet 00:00: 00 &lt 2022-0 No 50 10-06 00:00: 00 TAKE 1 2022-0 No 100 TABLET BY 7- MOUTH TWICE 00:00: A DAY 00 NEEDED Wellbutrin 2022-0 No 1mg XL 150 mg 10-06 24 hr 00:00: tablet, 00 extended release Dose 2022-0 No Unknown 10-06 00:00: 00 Seroquel 2022-0 No 1mg 400 mg 7- tablet 00:00: 00 Lamictal 2022-0 No 1mg 200 mg 7- tablet 00:00: 00 &lt 2022-0 No 50 10-06 00:00: 00 TAKE 1 2022-0 No 100 TABLET BY 10-06 MOUTH TWICE 00:00: A DAY 00 NEEDED Wellbutrin 2022-0 No 1mg XL 150 mg 10-06 24 hr 00:00: tablet, 00 extended release Seroquel 2022-0 No 1mg 400 mg 7- tablet 00:00: 00 Lamictal 2022-0 No 1mg 200 mg - tablet 00:00: 00 Dose 2022-0 No Unknown 10-06 00:00: 00 &lt 2022-0 No 50 10-06 00:00: 00 TAKE 1 2022-0 No 100 TABLET BY 10-06 MOUTH TWICE 00:00: A DAY 00 NEEDED Wellbutrin 2022-0 No 1mg XL 150 mg 10-06 24 hr 00:00: tablet, 00 extended release Seroquel 2022-0 No 1mg 400 mg - tablet 00:00: 00 Lamictal 2022-0 No 1mg 200 mg - tablet 00:00: 00 Dose 2022-0 No Unknown 10-06 00:00: 00 &lt 2022-0 No 50 10-06 00:00: 00 TAKE 1 2022-0 No 100 TABLET BY 10-06 MOUTH TWICE 00:00: A DAY 00 NEEDED Wellbutrin 2022-0 No 1mg XL 150 mg 10-06 24 hr 00:00: tablet, 00 extended release Remeron 30 2-0 No 1mg mg tablet 10-06 00:00: 00 Seroquel 2022-0 No 1mg 400 mg - tablet 00:00: 00 Lamictal 2022-0 No 1mg 200 mg - tablet 00:00: 00 &lt 2022-0 No 50 10-06 00:00: 00 TAKE 1 2022-0 No 100 TABLET BY 10-06 MOUTH TWICE 00:00: A DAY 00 NEEDED Wellbutrin 2022-0 No 1mg XL 150 mg 10-06 24 hr 00:00: tablet, 00 extended release Remeron 30 2-0 No 1mg mg tablet 10-06 00:00: 00 Seroquel 2022-0 No 1mg 400 mg 7- tablet 00:00: 00 Lamictal 2022-0 No 1mg 200 mg 10-06 tablet 00:00: 00 &lt 2022-0 No 50 10-06 00:00: 00 TAKE 1 2022-0 No 100 TABLET BY 10-06 MOUTH TWICE 00:00: A DAY 00 NEEDED Wellbutrin 2022-0 No 1mg XL 150 mg 10-06 24 hr 00:00: tablet, 00 extended release Remeron 30 2-0 No 1mg mg tablet 10-06 00:00: 00 Seroquel 2022-0 No 1mg 400 mg 10-06 tablet 00:00: 00 Lamictal 2022-0 No 1mg 200 mg 10-06 tablet 00:00: 00 &lt 2022-0 No 50 10-06 00:00: 00 TAKE 1 2022-0 No 100 TABLET BY 10-06 MOUTH TWICE 00:00: A DAY 00 NEEDED Wellbutrin 2022-0 No 1mg XL 150 mg 10-06 24 hr 00:00: tablet, 00 extended release Remeron 30 2-0 No 1mg mg tablet 10-06 00:00: 00 Seroquel 2022-0 No 1mg 400 mg 10-06 tablet 00:00: 00 Lamictal 2022-0 No 1mg 200 mg 10-06 tablet 00:00: 00 &lt 2022-0 No 50 10-06 00:00: 00 TAKE 1 2-0 No 100 TABLET BY 10-06 MOUTH TWICE 00:00: A DAY 00 NEEDED &lt 2022-0 No - 00:00: 00 Dose 2022-0 No Unknown 10-02 00:00: 00 TAKE ONE 2-0 No (1) 10-02 TABLET(S) 00:00: BY MOUTH 00 THREE TIMES A DAY NEEDED FOR PAIN. &lt 2-0 No 10-02 00:00: 00 ProAir HFA 2-0 No 12mcg/a 90 10-02 ctuatio mcg/actuati 00:00: n on aerosol 00 inhaler &lt 2-0 No 10-02 00:00: 00 Dose 2022-0 No Unknown 10-02 00:00: 00 TAKE ONE 2021-0 No (1) 7-02 TABLET(S) 00:00: BY MOUTH 00 THREE TIMES A DAY NEEDED FOR PAIN. &lt 2-0 No 7- 00:00: 00 ProAir HFA 2021-0 No 12mcg/a 90 7-02 ctuatio mcg/actuati 00:00: n on aerosol 00 inhaler &lt 2021-0 No 7- 00:00: 00 Dose 2021-0 No Unknown 10-02 00:00: 00 TAKE ONE 2021-0 No (1) 7-02 TABLET(S) 00:00: BY MOUTH 00 THREE TIMES A DAY NEEDED FOR PAIN. &lt 2021-0 No 7- 00:00: 00 ProAir HFA 2021-0 No 12mcg/a 90 7-02 ctuatio mcg/actuati 00:00: n on aerosol 00 inhaler &lt 2021-0 No 7 00:00: 00 Dose 2021-0 No Unknown 10-02 00:00: 00 TAKE ONE 2021-0 No (1) 7-02 TABLET(S) 00:00: BY MOUTH 00 THREE TIMES A DAY NEEDED FOR PAIN. &lt 2021-0 No 7- 00:00: 00 ProAir HFA 2021-0 No 12mcg/a 90 7-02 ctuatio mcg/actuati 00:00: n on aerosol 00 inhaler &lt 2021-0 No 7 00:00: 00 Dose 2021-0 No Unknown 10-02 00:00: 00 TAKE ONE 2021-0 No (1) 7-02 TABLET(S) 00:00: BY MOUTH 00 THREE TIMES A DAY NEEDED FOR PAIN. &lt 2021-0 No 7- 00:00: 00 ProAir HFA 2021-0 No 12mcg/a 90 7-02 ctuatio mcg/actuati 00:00: n on aerosol 00 inhaler &lt 2-0 No 7- 00:00: 00 Dose 2-0 No Unknown 7- 00:00: 00 TAKE ONE 2021-0 No (1) 7-02 TABLET(S) 00:00: BY MOUTH 00 THREE TIMES A DAY NEEDED FOR PAIN. &lt 2021-0 No 7-02 00:00: 00 ProAir HFA 2021-0 No 12mcg/a 90 7-02 ctuatio mcg/actuati 00:00: n on aerosol 00 inhaler &lt 2021-0 No 7-02 00:00: 00 Dose 2-0 No Unknown 7- 00:00: 00 TAKE ONE 2021-0 No (1) 7-02 TABLET(S) 00:00: BY MOUTH 00 THREE TIMES A DAY NEEDED FOR PAIN. &lt 2-0 No 7-02 00:00: 00 ProAir HFA 2021-0 No 12mcg/a 90 7-02 ctuatio mcg/actuati 00:00: n on aerosol 00 inhaler &lt 2021-0 No 7- 00:00: 00 Dose 2021-0 No Unknown 7- 00:00: 00 TAKE ONE 2021-0 No (1) 7-02 TABLET(S) 00:00: BY MOUTH 00 THREE TIMES A DAY NEEDED FOR PAIN. &lt 2021-0 No 7-02 00:00: 00 ProAir HFA 2021-0 No 12mcg/a 90 7-02 ctuatio mcg/actuati 00:00: n on aerosol 00 inhaler &lt 2021-0 No 7-02 00:00: 00 Dose 2021-0 No Unknown 7-02 00:00: 00 TAKE ONE 2021-0 No (1) 7-02 TABLET(S) 00:00: BY MOUTH 00 THREE TIMES A DAY NEEDED FOR PAIN. &lt 2021-0 No 7-02 00:00: 00 ProAir HFA 2021-0 No 12mcg/a 90 7-02 ctuatio mcg/actuati 00:00: n on aerosol 00 inhaler &lt 2021-0 No 7-02 00:00: 00 Dose 2021-0 No Unknown 7-02 00:00: 00 TAKE ONE 2021-0 No (1) 7-02 TABLET(S) 00:00: BY MOUTH 00 THREE TIMES A DAY NEEDED FOR PAIN. &lt 2-0 No 7-02 00:00: 00 Dose 2021-0 No Unknown 6-16 00:00: 00 Dose 2021-0 No Unknown 6-16 00:00: 00 Dose 2022-0 No Unknown 6-16 00:00: 00 Dose 2022-0 No Unknown 6-16 00:00: 00 Dose 2022-0 No Unknown 6-16 00:00: 00 Dose 2022-0 No Unknown 6-16 00:00: 00 Dose 2022-0 No Unknown 6-16 00:00: 00 Dose 2022-0 No Unknown 6-16 00:00: 00 Dose 2022-0 No Unknown 6-16 00:00: 00 Dose 2022-0 No Unknown 6-16 00:00: 00 Dose 2022-0 No Unknown 6-16 00:00: 00 Dose 2022-0 No Unknown 6-16 00:00: 00 Dose 2022-0 No Unknown 6-16 00:00: 00 Dose 2022-0 No Unknown 6-16 00:00: 00 Dose 2022-0 No Unknown 6-16 00:00: 00 Dose 2022-0 No Unknown 6-16 00:00: 00 Dose 2022-0 No Unknown 6-16 00:00: 00 Dose 2022-0 No Unknown 6-16 00:00: 00 Dose 2022-0 No Unknown 6-16 00:00: 00 Dose 2022-0 No Unknown 6-16 00:00: 00 Dose 2022-0 No Unknown 6-15 00:00: 00 Dose 2022-0 No Unknown 6-15 00:00: 00 Dose 2022-0 No Unknown 6-15 00:00: 00 Dose 2022-0 No Unknown 6-15 00:00: 00 Dose 2022-0 No Unknown 6-15 00:00: 00 Dose 2022-0 No Unknown 6-15 00:00: 00 Dose 2022-0 No Unknown 6-15 00:00: 00 Dose 2022-0 No Unknown 6-15 00:00: 00 Dose 2022-0 No Unknown 6-15 00:00: 00 Dose 2022-0 No Unknown 6-15 00:00: 00 Dose 2022-0 No Unknown 6-15 00:00: 00 Dose 2022-0 No Unknown 6-15 00:00: 00 Dose 2022-0 No Unknown 6-15 00:00: 00 Dose 2022-0 No Unknown 6-15 00:00: 00 Dose 2022-0 No Unknown 6-15 00:00: 00 Dose 2022-0 No Unknown 6-15 00:00: 00 Dose 2022-0 No Unknown 6-15 00:00: 00 Dose 2022-0 No Unknown 6-15 00:00: 00 Dose 2022-0 No Unknown 6-15 00:00: 00 Dose 2022-0 No Unknown 6-15 00:00: 00 Dose 2022-0 No Unknown 6-15 00:00: 00 Dose 2022-0 No Unknown 6-15 00:00: 00 Dose 2022-0 No Unknown 6-15 00:00: 00 Dose 2022-0 No Unknown 6-15 00:00: 00 Dose 2022-0 No Unknown 6-15 00:00: 00 Dose 2022-0 No Unknown 6-15 00:00: 00 Dose 2022-0 No Unknown 6-15 00:00: 00 Dose 2022-0 No Unknown 6-15 00:00: 00 Dose 2022-0 No Unknown 6-15 00:00: 00 Dose 2022-0 No Unknown 6-15 00:00: 00 Dose 2022-0 No Unknown 6-15 00:00: 00 Dose 2022-0 No Unknown 6-15 00:00: 00 Dose 2022-0 No Unknown 6-15 00:00: 00 Dose 2022-0 No Unknown 6-15 00:00: 00 Dose 2022-0 No Unknown 6-15 00:00: 00 Dose 2022-0 No Unknown 6-15 00:00: 00 Dose 2022-0 No Unknown 6-15 00:00: 00 Dose 2022-0 No Unknown 6-15 00:00: 00 Dose 2022-0 No Unknown 6-15 00:00: 00 Dose 2022-0 No Unknown 6-15 00:00: 00 Dose 2022-0 No Unknown 6-15 00:00: 00 Dose 2022-0 No Unknown 6-15 00:00: 00 Dose 2022-0 No Unknown 6-15 00:00: 00 Dose 2022-0 No Unknown 6-15 00:00: 00 Dose 2022-0 No Unknown 6-15 00:00: 00 Dose 2022-0 No Unknown 6-15 00:00: 00 Dose 2022-0 No Unknown 6-15 00:00: 00 Dose 2022-0 No Unknown 6-15 00:00: 00 Dose 2022-0 No Unknown 6-15 00:00: 00 Dose 2022-0 No Unknown 6-15 00:00: 00 Dose 2022-0 No Unknown 6-15 00:00: 00 Dose 2022-0 No Unknown 6-15 00:00: 00 Dose 2022-0 No Unknown 6-15 00:00: 00 Dose 2022-0 No Unknown 6-15 00:00: 00 Dose 2022-0 No Unknown 6-15 00:00: 00 Dose 2022-0 No Unknown 6-15 00:00: 00 Dose 2022-0 No Unknown 6-15 00:00: 00 Dose 2022-0 No Unknown 6-15 00:00: 00 Dose 2022-0 No Unknown 6-15 00:00: 00 Dose 2022-0 No Unknown 6-15 00:00: 00 Dose 2022-0 No Unknown 6-15 00:00: 00 Dose 2022-0 No Unknown 6-15 00:00: 00 Dose 2022-0 No Unknown 6-15 00:00: 00 Dose 2022-0 No Unknown 6-15 00:00: 00 Dose 2022-0 No Unknown 6-15 00:00: 00 Dose 2022-0 No Unknown 6-15 00:00: 00 Dose 2022-0 No Unknown 6-15 00:00: 00 Dose 2022-0 No Unknown 6-15 00:00: 00 Dose 2022-0 No Unknown 6-15 00:00: 00 Dose 2022-0 No Unknown 6-15 00:00: 00 Wellbutrin 2022-0 No 1mg XL 150 mg 6-07 24 hr 00:00: tablet, 00 extended release propranolol 2022-0 No 1mg 10 mg 6-07 tablet 00:00: 00 Lamictal 2022-0 No 1mg 200 mg 6-07 tablet 00:00: 00 Seroquel 2022-0 No 1mg 400 mg 6-07 tablet 00:00: 00 Remeron 30 2022-0 No 1mg mg tablet 6-07 00:00: 00 Dose 2022-0 No Unknown 6-07 00:00: 00 Wellbutrin 2022-0 No 1mg XL 150 mg 6-07 24 hr 00:00: tablet, 00 extended release propranolol 2022-0 No 1mg 10 mg 6-07 tablet 00:00: 00 Lamictal 2022-0 No 1mg 200 mg 6-07 tablet 00:00: 00 Seroquel 2022-0 No 1mg 400 mg 6-07 tablet 00:00: 00 Remeron 30 2022-0 No 1mg mg tablet 09-07 00:00: 00 Dose 2022-0 No Unknown 09-07 00:00: 00 Wellbutrin 2022-0 No 1mg XL 150 mg 09-07 24 hr 00:00: tablet, 00 extended release propranolol 2022-0 No 1mg 10 mg 6-07 tablet 00:00: 00 Lamictal 2022-0 No 1mg 200 mg 6-07 tablet 00:00: 00 Seroquel 2022-0 No 1mg 400 mg 6-07 tablet 00:00: 00 Remeron 30 2022-0 No 1mg mg tablet 09-07 00:00: 00 Dose 2022-0 No Unknown 09-07 00:00: 00 Wellbutrin 2022-0 No 1mg XL 150 mg 09-07 24 hr 00:00: tablet, 00 extended release Lamictal 2022-0 No 1mg 200 mg 6-07 tablet 00:00: 00 Seroquel 2022-0 No 1mg 400 mg 6-07 tablet 00:00: 00 Remeron 30 2022-0 No 1mg mg tablet 09-07 00:00: 00 Dose 2022-0 No Unknown 09-07 00:00: 00 Dose 2022-0 No Unknown 09-07 00:00: 00 Wellbutrin 2022-0 No 1mg XL 150 mg 09-07 24 hr 00:00: tablet, 00 extended release Lamictal 2022-0 No 1mg 200 mg 6-07 tablet 00:00: 00 Seroquel 2022-0 No 1mg 400 mg 6-07 tablet 00:00: 00 Remeron 30 2022-0 No 1mg mg tablet 09-07 00:00: 00 Dose 2022-0 No Unknown 09-07 00:00: 00 Dose 2022-0 No Unknown 09-07 00:00: 00 Wellbutrin 2022-0 No 1mg XL 150 mg - 24 hr 00:00: tablet, 00 extended release propranolol 2022-0 No 1mg 10 mg 6-07 tablet 00:00: 00 Lamictal 2022-0 No 1mg 200 mg 6-07 tablet 00:00: 00 Seroquel 2022-0 No 1mg 400 mg 6-07 tablet 00:00: 00 Remeron 30 2022-0 No 1mg mg tablet 09-07 00:00: 00 Dose 2022-0 No Unknown 09-07 00:00: 00 Wellbutrin 2022-0 No 1mg XL 150 mg 09-07 24 hr 00:00: tablet, 00 extended release propranolol 2022-0 No 1mg 10 mg 6-07 tablet 00:00: 00 Lamictal 2022-0 No 1mg 200 mg 6-07 tablet 00:00: 00 Seroquel 2022-0 No 1mg 400 mg 6-07 tablet 00:00: 00 Remeron 30 2022-0 No 1mg mg tablet 09-07 00:00: 00 Dose 2022-0 No Unknown 09-07 00:00: 00 Wellbutrin 2022-0 No 1mg XL 150 mg 09-07 24 hr 00:00: tablet, 00 extended release propranolol 2022-0 No 1mg 10 mg 6-07 tablet 00:00: 00 Lamictal 2022-0 No 1mg 200 mg -07 tablet 00:00: 00 Seroquel 2022-0 No 1mg 400 mg 6-07 tablet 00:00: 00 Remeron 30 2022-0 No 1mg mg tablet 09-07 00:00: 00 Dose 2022-0 No Unknown 09-07 00:00: 00 Wellbutrin 2022-0 No 1mg XL 150 mg 09-07 24 hr 00:00: tablet, 00 extended release propranolol 2022-0 No 1mg 10 mg 6-07 tablet 00:00: 00 Lamictal 2022-0 No 1mg 200 mg -07 tablet 00:00: 00 Seroquel 2022-0 No 1mg 400 mg 6-07 tablet 00:00: 00 Wellbutrin 2022-0 No 1mg XL 150 mg - 24 hr 00:00: tablet, 00 extended release propranolol 2022-0 No 1mg 10 mg 6-07 tablet 00:00: 00 Lamictal 2022-0 No 1mg 200 mg 6-07 tablet 00:00: 00 Seroquel 2022-0 No 1mg 400 mg 6-07 tablet 00:00: 00 Remeron 30 2022-0 No 1mg mg tablet 09-07 00:00: 00 Remeron 30 2-0 No 1mg mg tablet 6 00:00: 00 Dose 2022-0 No Unknown 6-07 00:00: 00 Dose 2022-0 No Unknown 6-07 00:00: 00 Wellbutrin 2022-0 No 1mg XL 150 mg 5-24 24 hr 00:00: tablet, 00 extended release propranolol 2022-0 No 1mg 10 mg 5-24 tablet 00:00: 00 Dose 2022-0 No Unknown 5-24 00:00: 00 Dose 2022-0 No Unknown 5-24 00:00: 00 Lamictal 2022-0 No 1mg 200 mg 5-24 tablet 00:00: 00 Dose 2022-0 No Unknown 5-24 00:00: 00 Wellbutrin 2022-0 No 1mg XL 150 mg 5-24 24 hr 00:00: tablet, 00 extended release propranolol 2022-0 No 1mg 10 mg 5-24 tablet 00:00: 00 Dose 2022-0 No Unknown 5-24 00:00: 00 Dose 2022-0 No Unknown 5-24 00:00: 00 Lamictal 2022-0 No 1mg 200 mg 5-24 tablet 00:00: 00 Dose 2022-0 No Unknown 5-24 00:00: 00 Wellbutrin 2022-0 No 1mg XL 150 mg 5-24 24 hr 00:00: tablet, 00 extended release propranolol 2022-0 No 1mg 10 mg 5-24 tablet 00:00: 00 Dose 2022-0 No Unknown 5-24 00:00: 00 Dose 2022-0 No Unknown 5-24 00:00: 00 Lamictal 2022-0 No 1mg 200 mg 5-24 tablet 00:00: 00 Dose 2022-0 No Unknown 5-24 00:00: 00 TAKE 1 2022-0 No TABLET 5-24 DAILY. 00:00: 00 Dose 2022-0 No Unknown 5-24 00:00: 00 Dose 2022-0 No Unknown 5-24 00:00: 00 Dose 2022-0 No Unknown 5-24 00:00: 00 Dose 2022-0 No Unknown 5-24 00:00: 00 Dose 2022-0 No Unknown 5-24 00:00: 00 TAKE 1 2022-0 No TABLET 5-24 DAILY. 00:00: 00 Dose 2022-0 No Unknown 5-24 00:00: 00 Dose 2022-0 No Unknown 5-24 00:00: 00 Dose 2022-0 No Unknown 5-24 00:00: 00 Dose 2022-0 No Unknown 5-24 00:00: 00 Dose 2022-0 No Unknown 5-24 00:00: 00 Wellbutrin 2022-0 No 1mg XL 150 mg 5-24 24 hr 00:00: tablet, 00 extended release propranolol 2022-0 No 1mg 10 mg 5-24 tablet 00:00: 00 Seroquel 2022-0 No 1mg 400 mg 5-24 tablet 00:00: 00 Remeron 15 2022-0 No 1mg mg tablet 5-24 00:00: 00 Lamictal 2022-0 No 1mg 200 mg 5-24 tablet 00:00: 00 Dose 2022-0 No Unknown 5-24 00:00: 00 Wellbutrin 2022-0 No 1mg XL 150 mg 5-24 24 hr 00:00: tablet, 00 extended release propranolol 2022-0 No 1mg 10 mg 5-24 tablet 00:00: 00 Seroquel 2022-0 No 1mg 400 mg 5-24 tablet 00:00: 00 Remeron 15 2022-0 No 1mg mg tablet 5-24 00:00: 00 Lamictal 2022-0 No 1mg 200 mg 5-24 tablet 00:00: 00 Dose 2022-0 No Unknown 5-24 00:00: 00 Wellbutrin 2022-0 No 1mg XL 150 mg 5-24 24 hr 00:00: tablet, 00 extended release propranolol 2022-0 No 1mg 10 mg 5-24 tablet 00:00: 00 Seroquel 2022-0 No 1mg 400 mg 5-24 tablet 00:00: 00 Remeron 15 2022-0 No 1mg mg tablet 5-24 00:00: 00 Lamictal 2022-0 No 1mg 200 mg 5-24 tablet 00:00: 00 Dose 2022-0 No Unknown 5-24 00:00: 00 Wellbutrin 2022-0 No 1mg XL 150 mg 5-24 24 hr 00:00: tablet, 00 extended release propranolol 2022-0 No 1mg 10 mg 5-24 tablet 00:00: 00 Seroquel 2022-0 No 1mg 400 mg 5-24 tablet 00:00: 00 Remeron 15 2022-0 No 1mg mg tablet 5-24 00:00: 00 Lamictal 2022-0 No 1mg 200 mg 5-24 tablet 00:00: 00 Dose 2022-0 No Unknown 5-24 00:00: 00 Wellbutrin 2022-0 No 1mg XL 150 mg 5-24 24 hr 00:00: tablet, 00 extended release propranolol 2022-0 No 1mg 10 mg 5-24 tablet 00:00: 00 Dose 2022-0 No Unknown 5-24 00:00: 00 Remeron 15 2022-0 No 1mg mg tablet 5-24 00:00: 00 Lamictal 2022-0 No 1mg 200 mg 5-24 tablet 00:00: 00 Dose 2022-0 No Unknown 5-24 00:00: 00 Wellbutrin 2022-0 No 1mg XL 150 mg 5-10 24 hr 00:00: tablet, 00 extended release Lamictal 2022-0 No 1mg 200 mg 5-10 tablet 00:00: 00 Seroquel 2022-0 No 1mg 400 mg 5-10 tablet 00:00: 00 Remeron 15 2022-0 No 1mg mg tablet 5-10 00:00: 00 Wellbutrin 2022-0 No 1mg XL 150 mg 5-10 24 hr 00:00: tablet, 00 extended release Lamictal 2022-0 No 1mg 200 mg 5-10 tablet 00:00: 00 Seroquel 2022-0 No 1mg 400 mg 5-10 tablet 00:00: 00 Remeron 15 2022-0 No 1mg mg tablet 5-10 00:00: 00 Wellbutrin 2022-0 No 1mg XL 150 mg 5-10 24 hr 00:00: tablet, 00 extended release Lamictal 2022-0 No 1mg 200 mg 5-10 tablet 00:00: 00 Seroquel 2022-0 No 1mg 400 mg 5-10 tablet 00:00: 00 Remeron 15 2022-0 No 1mg mg tablet 5-10 00:00: 00 Wellbutrin 2022-0 No 1mg XL 150 mg 5-10 24 hr 00:00: tablet, 00 extended release Lamictal 2022-0 No 1mg 200 mg 5-10 tablet 00:00: 00 Seroquel 2022-0 No 1mg 400 mg 5-10 tablet 00:00: 00 Remeron 15 2022-0 No 1mg mg tablet 5-10 00:00: 00 Wellbutrin 2022-0 No 1mg XL 150 mg 5-10 24 hr 00:00: tablet, 00 extended release Lamictal 2022-0 No 1mg 200 mg 5-10 tablet 00:00: 00 Seroquel 2022-0 No 1mg 400 mg 5-10 tablet 00:00: 00 Remeron 15 2022-0 No 1mg mg tablet 5-10 00:00: 00 Wellbutrin 2022-0 No 1mg XL 150 mg 5-10 24 hr 00:00: tablet, 00 extended release Lamictal 2022-0 No 1mg 200 mg 5-10 tablet 00:00: 00 Seroquel 2022-0 No 1mg 400 mg 5-10 tablet 00:00: 00 Remeron 15 2022-0 No 1mg mg tablet 5-10 00:00: 00 Wellbutrin 2022-0 No 1mg XL 150 mg 5-10 24 hr 00:00: tablet, 00 extended release Lamictal 2022-0 No 1mg 200 mg 5-10 tablet 00:00: 00 Seroquel 2022-0 No 1mg 400 mg 5-10 tablet 00:00: 00 Remeron 15 2022-0 No 1mg mg tablet 5-10 00:00: 00 Wellbutrin 2022-0 No 1mg XL 150 mg 5-10 24 hr 00:00: tablet, 00 extended release Lamictal 2022-0 No 1mg 200 mg 5-10 tablet 00:00: 00 Seroquel 2022-0 No 1mg 400 mg 5-10 tablet 00:00: 00 Remeron 15 2022-0 No 1mg mg tablet 5-10 00:00: 00 Wellbutrin 2022-0 No 1mg XL 150 mg 5-10 24 hr 00:00: tablet, 00 extended release Lamictal 2022-0 No 1mg 200 mg 5-10 tablet 00:00: 00 Seroquel 2022-0 No 1mg 400 mg 5-10 tablet 00:00: 00 Remeron 15 2022-0 No 1mg mg tablet 5-10 00:00: 00 Wellbutrin 2022-0 No 1mg XL 150 mg 5-10 24 hr 00:00: tablet, 00 extended release Lamictal 2022-0 No 1mg 200 mg 5-10 tablet 00:00: 00 Seroquel 2022-0 No 1mg 400 mg 5-10 tablet 00:00: 00 Remeron 15 2022-0 No 1mg mg tablet 5-10 00:00: 00 Wellbutrin 2022-0 No 1mg XL 150 mg 5-05 24 hr 00:00: tablet, 00 extended release Lamictal 2022-0 No 1mg 200 mg 5-05 tablet 00:00: 00 Seroquel 2022-0 No 1mg 400 mg 5-05 tablet 00:00: 00 trazodone 2022-0 No 1mg 100 mg 5-05 tablet 00:00: 00 Wellbutrin 2022-0 No 1mg XL 150 mg 5-05 24 hr 00:00: tablet, 00 extended release Lamictal 2022-0 No 1mg 200 mg 5-05 tablet 00:00: 00 Seroquel 2022-0 No 1mg 400 mg 5-05 tablet 00:00: 00 trazodone 2022-0 No 1mg 100 mg 5-05 tablet 00:00: 00 Wellbutrin 2022-0 No 1mg XL 150 mg 5-05 24 hr 00:00: tablet, 00 extended release Lamictal 2022-0 No 1mg 200 mg 5-05 tablet 00:00: 00 Seroquel 2022-0 No 1mg 400 mg 5-05 tablet 00:00: 00 trazodone 2022-0 No 1mg 100 mg 5-05 tablet 00:00: 00 Wellbutrin 2022-0 No 1mg XL 150 mg 5-05 24 hr 00:00: tablet, 00 extended release Lamictal 2022-0 No 1mg 200 mg 5-05 tablet 00:00: 00 Seroquel 2022-0 No 1mg 400 mg 5-05 tablet 00:00: 00 Dose 2022-0 No Unknown 5-05 00:00: 00 Wellbutrin 2022-0 No 1mg XL 150 mg 5-05 24 hr 00:00: tablet, 00 extended release Lamictal 2022-0 No 1mg 200 mg 5-05 tablet 00:00: 00 Seroquel 2022-0 No 1mg 400 mg 5-05 tablet 00:00: 00 Dose 2022-0 No Unknown 5-05 00:00: 00 Wellbutrin 2022-0 No 1mg XL 150 mg 5-05 24 hr 00:00: tablet, 00 extended release Lamictal 2022-0 No 1mg 200 mg 5-05 tablet 00:00: 00 Seroquel 2022-0 No 1mg 400 mg 5-05 tablet 00:00: 00 trazodone 2022-0 No 1mg 100 mg 5-05 tablet 00:00: 00 Wellbutrin 2022-0 No 1mg XL 150 mg 5-05 24 hr 00:00: tablet, 00 extended release Lamictal 2022-0 No 1mg 200 mg 5-05 tablet 00:00: 00 Seroquel 2022-0 No 1mg 400 mg 5-05 tablet 00:00: 00 trazodone 2022-0 No 1mg 100 mg 5-05 tablet 00:00: 00 Wellbutrin 2022-0 No 1mg XL 150 mg 5-05 24 hr 00:00: tablet, 00 extended release Lamictal 2022-0 No 1mg 200 mg 5-05 tablet 00:00: 00 Seroquel 2022-0 No 1mg 400 mg 5-05 tablet 00:00: 00 trazodone 2022-0 No 1mg 100 mg 5-05 tablet 00:00: 00 Wellbutrin 2022-0 No 1mg XL 150 mg 5-05 24 hr 00:00: tablet, 00 extended release Lamictal 2022-0 No 1mg 200 mg 5-05 tablet 00:00: 00 Seroquel 2022-0 No 1mg 400 mg 5-05 tablet 00:00: 00 trazodone 2022-0 No 1mg 100 mg 5-05 tablet 00:00: 00 Wellbutrin 2022-0 No 1mg XL 150 mg 5-05 24 hr 00:00: tablet, 00 extended release Lamictal 2022-0 No 1mg 200 mg 5-05 tablet 00:00: 00 Seroquel 2022-0 No 1mg 400 mg 5-05 tablet 00:00: 00 trazodone 2-0 No 1mg 100 mg 5-05 tablet 00:00: 00 ProAir HFA 2-0 No 12mcg/a 90 5-03 ctuatio mcg/actuati 00:00: n on aerosol 00 inhaler montelukast 2-0 No 1mg 10 mg 5-03 tablet 00:00: 00 ProAir HFA 2-0 No 12mcg/a 90 5-03 ctuatio mcg/actuati 00:00: n on aerosol 00 inhaler montelukast 2-0 No 1mg 10 mg 5-03 tablet 00:00: 00 ProAir HFA 2-0 No 12mcg/a 90 5-03 ctuatio mcg/actuati 00:00: n on aerosol 00 inhaler montelukast 2021-0 No 1mg 10 mg 5-03 tablet 00:00: 00 ProAir HFA 2-0 No 12mcg/a 90 5-03 ctuatio mcg/actuati 00:00: n on aerosol 00 inhaler Dose 2021-0 No Unknown 5-03 00:00: 00 ProAir HFA 2-0 No 12mcg/a 90 5-03 ctuatio mcg/actuati 00:00: n on aerosol 00 inhaler Dose 2-0 No Unknown 5-03 00:00: 00 ProAir HFA 2-0 No 12mcg/a 90 5-03 ctuatio mcg/actuati 00:00: n on aerosol 00 inhaler montelukast 2-0 No 1mg 10 mg 5-03 tablet 00:00: 00 ProAir HFA 2-0 No 12mcg/a 90 5-03 ctuatio mcg/actuati 00:00: n on aerosol 00 inhaler montelukast 2-0 No 1mg 10 mg 5-03 tablet 00:00: 00 ProAir HFA 2-0 No 12mcg/a 90 5-03 ctuatio mcg/actuati 00:00: n on aerosol 00 inhaler montelukast 2-0 No 1mg 10 mg 5-03 tablet 00:00: 00 ProAir HFA 2-0 No 12mcg/a 90 5-03 ctuatio mcg/actuati 00:00: n on aerosol 00 inhaler montelukast 2022-0 No 1mg 10 mg 5-03 tablet 00:00: 00 ProAir HFA 2022-0 No 12mcg/a 90 5-03 ctuatio mcg/actuati 00:00: n on aerosol 00 inhaler montelukast 2022-0 No 1mg 10 mg 5-03 tablet 00:00: 00 dicyclomine 2022-0 No 1mg 20 mg 4-28 tablet 00:00: 00 dicyclomine 2022-0 No 1mg 20 mg 4-28 tablet 00:00: 00 dicyclomine 2022-0 No 1mg 20 mg 4-28 tablet 00:00: 00 Dose 2022-0 No Unknown 4-28 00:00: 00 Dose 2022-0 No Unknown 4-28 00:00: 00 dicyclomine 2022-0 No 1mg 20 mg 4-28 tablet 00:00: 00 dicyclomine 2022-0 No 1mg 20 mg 4-28 tablet 00:00: 00 dicyclomine 2022-0 No 1mg 20 mg 4-28 tablet 00:00: 00 dicyclomine 2022-0 No 1mg 20 mg 4-28 tablet 00:00: 00 dicyclomine 2022-0 No 1mg 20 mg 4-28 tablet 00:00: 00 ibuprofen 2022-0 No 1mg 600 mg 4-14 tablet 00:00: 00 benzonatate 2022-0 No 1mg 100 mg 4-14 capsule 00:00: 00 ibuprofen 2022-0 No 1mg 600 mg 4-14 tablet 00:00: 00 benzonatate 2022-0 No 1mg 100 mg 4-14 capsule 00:00: 00 ibuprofen 2022-0 No 1mg 600 mg 4-14 tablet 00:00: 00 benzonatate 2022-0 No 1mg 100 mg 4-14 capsule 00:00: 00 Dose 2022-0 No Unknown 4-14 00:00: 00 Dose 2022-0 No Unknown 4-14 00:00: 00 Dose 2022-0 No Unknown 4-14 00:00: 00 Dose 2022-0 No Unknown 4-14 00:00: 00 ibuprofen 2022-0 No 1mg 600 mg 4-14 tablet 00:00: 00 benzonatate 2022-0 No 1mg 100 mg 4-14 capsule 00:00: 00 ibuprofen 2022-0 No 1mg 600 mg 4-14 tablet 00:00: 00 benzonatate 2022-0 No 1mg 100 mg 4-14 capsule 00:00: 00 ibuprofen 2022-0 No 1mg 600 mg 4-14 tablet 00:00: 00 benzonatate 2022-0 No 1mg 100 mg 4-14 capsule 00:00: 00 ibuprofen 2022-0 No 1mg 600 mg 4-14 tablet 00:00: 00 benzonatate 2022-0 No 1mg 100 mg 4-14 capsule 00:00: 00 ibuprofen 2022-0 No 1mg 600 mg 4-14 tablet 00:00: 00 benzonatate 2022-0 No 1mg 100 mg 4-14 capsule 00:00: 00 Wellbutrin 2022-0 No 1mg XL 150 mg 3-30 24 hr 00:00: tablet, 00 extended release Dose 2022-0 No Unknown 3-30 00:00: 00 Lamictal 2022-0 No 1mg 200 mg 3-30 tablet 00:00: 00 trazodone 2022-0 No 1mg 100 mg 3-30 tablet 00:00: 00 Wellbutrin 2022-0 No 1mg XL 150 mg 3-30 24 hr 00:00: tablet, 00 extended release Dose 2022-0 No Unknown 3-30 00:00: 00 Lamictal 2022-0 No 1mg 200 mg 3-30 tablet 00:00: 00 trazodone 2022-0 No 1mg 100 mg 3-30 tablet 00:00: 00 Wellbutrin 2022-0 No 1mg XL 150 mg 3-30 24 hr 00:00: tablet, 00 extended release Dose 2022-0 No Unknown 3-30 00:00: 00 Lamictal 2022-0 No 1mg 200 mg 3-30 tablet 00:00: 00 trazodone 2022-0 No 1mg 100 mg 3-30 tablet 00:00: 00 TAKE 1 2022-0 No TABLET 3-30 DAILY. 00:00: 00 Dose 2022-0 No Unknown 3-30 00:00: 00 Dose 2022-0 No Unknown 3-30 00:00: 00 Dose 2022-0 No Unknown 3-30 00:00: 00 TAKE 1 2022-0 No TABLET 3-30 DAILY. 00:00: 00 Dose 2022-0 No Unknown 3-30 00:00: 00 Dose 2022-0 No Unknown 3-30 00:00: 00 Dose 2022-0 No Unknown 3-30 00:00: 00 Wellbutrin 2022-0 No 1mg XL 150 mg 3-30 24 hr 00:00: tablet, 00 extended release Seroquel 2022-0 No 1mg 400 mg 3-30 tablet 00:00: 00 Lamictal 2022-0 No 1mg 200 mg 3-30 tablet 00:00: 00 trazodone 2022-0 No 1mg 100 mg 3-30 tablet 00:00: 00 Wellbutrin 2022-0 No 1mg XL 150 mg 3-30 24 hr 00:00: tablet, 00 extended release Seroquel 2022-0 No 1mg 400 mg 3-30 tablet 00:00: 00 Lamictal 2022-0 No 1mg 200 mg 3-30 tablet 00:00: 00 trazodone 2022-0 No 1mg 100 mg 3-30 tablet 00:00: 00 Wellbutrin 2022-0 No 1mg XL 150 mg 3-30 24 hr 00:00: tablet, 00 extended release Seroquel 2022-0 No 1mg 400 mg 3-30 tablet 00:00: 00 Wellbutrin 2022-0 No 1mg XL 150 mg 3-30 24 hr 00:00: tablet, 00 extended release Lamictal 2022-0 No 1mg 200 mg 3-30 tablet 00:00: 00 Seroquel 2022-0 No 1mg 400 mg 3-30 tablet 00:00: 00 Lamictal 2022-0 No 1mg 200 mg 3-30 tablet 00:00: 00 trazodone 2022-0 No 1mg 100 mg 3-30 tablet 00:00: 00 trazodone 2022-0 No 1mg 100 mg 3-30 tablet 00:00: 00 Wellbutrin 2022-0 No 1mg XL 150 mg 3-30 24 hr 00:00: tablet, 00 extended release Dose 2022-0 No Unknown 3-30 00:00: 00 Lamictal 2022-0 No 1mg 200 mg 3-30 tablet 00:00: 00 trazodone 2022-0 No 1mg 100 mg 3-30 tablet 00:00: 00 metronidazo 2022-0 No 1mg le 500 mg 3-29 tablet 00:00: 00 metronidazo 2022-0 No 1mg le 500 mg 3-29 tablet 00:00: 00 metronidazo 2022-0 No 1mg le 500 mg 3-29 tablet 00:00: 00 Dose 2022-0 No Unknown 3-29 00:00: 00 Dose 2022-0 No Unknown 3-29 00:00: 00 metronidazo 2022-0 No 1mg le 500 mg 3-29 tablet 00:00: 00 metronidazo 2022-0 No 1mg le 500 mg 3-29 tablet 00:00: 00 metronidazo 2022-0 No 1mg le 500 mg 3-29 tablet 00:00: 00 metronidazo 2022-0 No 1mg le 500 mg 3-29 tablet 00:00: 00 metronidazo 2022-0 No 1mg le 500 mg 3-29 tablet 00:00: 00 Vicodin HP 2022-0 No 1mg 10 mg-300 3-25 mg tablet 00:00: 00 trazodone 2022-0 No 1mg 50 mg 3-25 tablet 00:00: 00 Depo-Bark Grinder 2022-0 No 1mg/mL a 150 mg/mL 3-25 intramuscul 00:00: ar syringe 00 Vicodin HP 2022-0 No 1mg 10 mg-300 3-25 mg tablet 00:00: 00 trazodone 2022-0 No 1mg 50 mg 3-25 tablet 00:00: 00 Depo-Bark Grinder 2022-0 No 1mg/mL a 150 mg/mL 3-25 intramuscul 00:00: ar syringe 00 Vicodin HP 2022-0 No 1mg 10 mg-300 3-25 mg tablet 00:00: 00 trazodone 2022-0 No 1mg 50 mg 3-25 tablet 00:00: 00 Depo-Bark Grinder 2022-0 No 1mg/mL a 150 mg/mL 3-25 intramuscul 00:00: ar syringe 00 Dose 2022-0 No Unknown 3-25 00:00: 00 Dose 2022-0 No Unknown 3-25 00:00: 00 Depo-Bark Grinder 2022-0 No 1mg/mL a 150 mg/mL 3-25 intramuscul 00:00: ar syringe 00 Dose 2022-0 No Unknown 3-25 00:00: 00 Dose 2022-0 No Unknown 3-25 00:00: 00 Depo-Bark Grinder 2022-0 No 1mg/mL a 150 mg/mL 3-25 intramuscul 00:00: ar syringe 00 Vicodin HP 2022-0 No 1mg 10 mg-300 3-25 mg tablet 00:00: 00 trazodone 2022-0 No 1mg 50 mg 3-25 tablet 00:00: 00 Depo-Bark Grinder 2022-0 No 1mg/mL a 150 mg/mL 3-25 intramuscul 00:00: ar syringe 00 Vicodin HP 2022-0 No 1mg 10 mg-300 3-25 mg tablet 00:00: 00 trazodone 2022-0 No 1mg 50 mg 3-25 tablet 00:00: 00 Depo-Bark Grinder 2022-0 No 1mg/mL a 150 mg/mL 3-25 intramuscul 00:00: ar syringe 00 Vicodin HP 2022-0 No 1mg 10 mg-300 3-25 mg tablet 00:00: 00 trazodone 2022-0 No 1mg 50 mg 3-25 tablet 00:00: 00 Depo-Bark Grinder 2022-0 No 1mg/mL a 150 mg/mL 3-25 intramuscul 00:00: ar syringe 00 Vicodin HP 2022-0 No 1mg 10 mg-300 3-25 mg tablet 00:00: 00 trazodone 2022-0 No 1mg 50 mg 3-25 tablet 00:00: 00 Depo-Bark Grinder 2022-0 No 1mg/mL a 150 mg/mL 3-25 intramuscul 00:00: ar syringe 00 Vicodin HP 2022-0 No 1mg 10 mg-300 3-25 mg tablet 00:00: 00 trazodone 2022-0 No 1mg 50 mg 3-25 tablet 00:00: 00 Depo-[employer]ark [employer]inder 2022-0 No 1mg/mL a 150 mg/mL 3-25 intramuscul 00:00: ar syringe 00 Dose 2022-0 No Unknown 3-24 00:00: 00 Dose 2022-0 No Unknown 3-24 00:00: 00 Dose 2022-0 No Unknown 3-24 00:00: 00 Dose 2022-0 No Unknown 3-24 00:00: 00 Dose 2022-0 No Unknown 3-24 00:00: 00 Dose 2022-0 No Unknown 3-24 00:00: 00 Dose 2022-0 No Unknown 3-24 00:00: 00 Dose 2022-0 No Unknown 3-24 00:00: 00 Dose 2022-0 No Unknown 3-24 00:00: 00 Dose 2022-0 No Unknown 3-24 00:00: 00 Dose 2022-0 No Unknown 3-24 00:00: 00 Dose 2022-0 No Unknown 3-24 00:00: 00 Dose 2022-0 No Unknown 3-24 00:00: 00 Dose 2022-0 No Unknown 3-24 00:00: 00 Dose 2022-0 No Unknown 3-24 00:00: 00 Dose 2022-0 No Unknown 3-24 00:00: 00 Dose 2022-0 No Unknown 3-24 00:00: 00 Dose 2022-0 No Unknown 3-24 00:00: 00 Dose 2022-0 No Unknown 3-24 00:00: 00 Dose 2022-0 No Unknown 3-24 00:00: 00 Dose 2022-0 No Unknown 3-24 00:00: 00 Dose 2022-0 No Unknown 3-24 00:00: 00 Dose 2022-0 No Unknown 3-24 00:00: 00 Dose 2022-0 No Unknown 3-24 00:00: 00 Dose 2022-0 No Unknown 3-24 00:00: 00 Dose 2022-0 No Unknown 3-24 00:00: 00 Dose 2022-0 No Unknown 3-24 00:00: 00 Dose 2022-0 No Unknown 3-24 00:00: 00 Dose 2022-0 No Unknown 3-24 00:00: 00 Dose 2022-0 No Unknown 3-24 00:00: 00 Dose 2022-0 No Unknown 3-24 00:00: 00 Dose 2022-0 No Unknown 3-24 00:00: 00 Dose 2022-0 No Unknown 3-24 00:00: 00 Dose 2022-0 No Unknown 3-24 00:00: 00 Dose 2022-0 No Unknown 3-24 00:00: 00 Dose 2022-0 No Unknown 3-24 00:00: 00 Dose 2022-0 No Unknown 3-24 00:00: 00 Dose 2022-0 No Unknown 3-24 00:00: 00 Dose 2022-0 No Unknown 3-24 00:00: 00 Dose 2022-0 No Unknown 3-24 00:00: 00 Dose 2022-0 No Unknown 3-24 00:00: 00 Dose 2022-0 No Unknown 3-24 00:00: 00 Dose 2022-0 No Unknown 3-24 00:00: 00 Dose 2022-0 No Unknown 3-24 00:00: 00 Dose 2022-0 No Unknown 3-24 00:00: 00 Dose 2022-0 No Unknown 3-24 00:00: 00 Dose 2022-0 No Unknown 3-24 00:00: 00 Dose 2022-0 No Unknown 3-24 00:00: 00 Dose 2022-0 No Unknown 3-24 00:00: 00 Dose 2022-0 No Unknown 3-24 00:00: 00 Dose 2022-0 No Unknown 3-24 00:00: 00 Dose 2022-0 No Unknown 3-24 00:00: 00 Dose 2022-0 No Unknown 3-24 00:00: 00 Dose 2022-0 No Unknown 3-24 00:00: 00 Dose 2022-0 No Unknown 3-24 00:00: 00 Dose 2022-0 No Unknown 3-24 00:00: 00 Dose 2022-0 No Unknown 3-24 00:00: 00 Dose 2022-0 No Unknown 3-24 00:00: 00 Dose 2022-0 No Unknown 3-24 00:00: 00 Dose 2022-0 No Unknown 3-24 00:00: 00 Dose 2022-0 No Unknown 3-24 00:00: 00 Dose 2022-0 No Unknown 3-24 00:00: 00 Dose 2022-0 No Unknown 3-24 00:00: 00 Dose 2022-0 No Unknown 3-24 00:00: 00 Dose 2022-0 No Unknown 3-24 00:00: 00 Dose 2022-0 No Unknown 3-24 00:00: 00 Dose 2022-0 No Unknown 3-24 00:00: 00 Dose 2022-0 No Unknown 3-24 00:00: 00 Dose 2022-0 No Unknown 3-24 00:00: 00 Dose 2022-0 No Unknown 3-24 00:00: 00 Dose 2022-0 No Unknown 3-24 00:00: 00 Dose 2022-0 No Unknown 3-24 00:00: 00 Dose 2022-0 No Unknown 3-24 00:00: 00 Dose 2022-0 No Unknown 3-24 00:00: 00 Dose 2022-0 No Unknown 3-24 00:00: 00 Dose 2022-0 No Unknown 3-24 00:00: 00 Dose 2022-0 No Unknown 3-24 00:00: 00 Dose 2022-0 No Unknown 3-24 00:00: 00 Dose 2022-0 No Unknown 3-24 00:00: 00 Dose 2022-0 No Unknown 3-24 00:00: 00 Dose 2022-0 No Unknown 3-24 00:00: 00 Dose 2022-0 No Unknown 3-24 00:00: 00 Dose 2022-0 No Unknown 3-24 00:00: 00 Dose 2022-0 No Unknown 3-24 00:00: 00 Dose 2022-0 No Unknown 3-24 00:00: 00 Dose 2022-0 No Unknown 3-24 00:00: 00 Dose 2022-0 No Unknown 3-24 00:00: 00 Dose 2022-0 No Unknown 3-24 00:00: 00 Dose 2022-0 No Unknown 3-24 00:00: 00 Dose 2022-0 No Unknown 3-24 00:00: 00 Dose 2022-0 No Unknown 3-24 00:00: 00 Dose 2022-0 No Unknown 3-24 00:00: 00 Dose 2022-0 No Unknown 3-24 00:00: 00 Dose 2022-0 No Unknown 3-24 00:00: 00 Dose 2022-0 No Unknown 3-24 00:00: 00 Dose 2022-0 No Unknown 3-24 00:00: 00 Dose 2022-0 No Unknown 3-24 00:00: 00 Dose 2022-0 No Unknown 3-24 00:00: 00 Dose 2022-0 No Unknown 3-24 00:00: 00 Dose 2022-0 No Unknown 3-24 00:00: 00 Dose 2022-0 No Unknown 3-24 00:00: 00 Dose 2022-0 No Unknown 3-24 00:00: 00 Dose 2022-0 No Unknown 3-24 00:00: 00 Dose 2022-0 No Unknown 3-24 00:00: 00 Dose 2022-0 No Unknown 3-24 00:00: 00 Dose 2022-0 No Unknown 3-24 00:00: 00 Dose 2022-0 No Unknown 3-24 00:00: 00 Dose 2022-0 No Unknown 3-24 00:00: 00 Dose 2022-0 No Unknown 3-24 00:00: 00 Dose 2022-0 No Unknown 3-24 00:00: 00 Dose 2022-0 No Unknown 3-24 00:00: 00 Dose 2022-0 No Unknown 3-24 00:00: 00 Dose 2022-0 No Unknown 3-24 00:00: 00 Dose 2022-0 No Unknown 3-24 00:00: 00 Dose 2022-0 No Unknown 3-24 00:00: 00 Dose 2022-0 No Unknown 3-24 00:00: 00 Dose 2022-0 No Unknown 3-24 00:00: 00 Dose 2022-0 No Unknown 3-24 00:00: 00 Dose 2022-0 No Unknown 3-24 00:00: 00 Dose 2022-0 No Unknown 3-24 00:00: 00 Dose 2022-0 No Unknown 3-24 00:00: 00 Dose 2022-0 No Unknown 3-24 00:00: 00 Dose 2022-0 No Unknown 3-24 00:00: 00 Dose 2022-0 No Unknown 3-24 00:00: 00 Dose 2022-0 No Unknown 3-24 00:00: 00 Dose 2022-0 No Unknown 3-24 00:00: 00 Dose 2022-0 No Unknown 3-24 00:00: 00 Dose 2022-0 No Unknown 3-24 00:00: 00 Dose 2022-0 No Unknown 3-24 00:00: 00 Dose 2022-0 No Unknown 3-24 00:00: 00 Dose 2022-0 No Unknown 3-24 00:00: 00 Dose 2022-0 No Unknown 3-24 00:00: 00 Dose 2022-0 No Unknown 3-24 00:00: 00 Dose 2022-0 No Unknown 3-24 00:00: 00 Dose 2022-0 No Unknown 3-24 00:00: 00 Dose 2022-0 No Unknown 3-24 00:00: 00 Dose 2022-0 No Unknown 3-24 00:00: 00 Dose 2022-0 No Unknown 3-24 00:00: 00 Dose 2022-0 No Unknown 3-24 00:00: 00 Dose 2022-0 No Unknown 3-24 00:00: 00 Dose 2022-0 No Unknown 3-24 00:00: 00 Dose 2022-0 No Unknown 3-24 00:00: 00 Dose 2022-0 No Unknown 3-24 00:00: 00 Dose 2022-0 No Unknown 3-24 00:00: 00 Dose 2022-0 No Unknown 3-24 00:00: 00 Dose 2022-0 No Unknown 3-24 00:00: 00 Dose 2022-0 No Unknown 3-24 00:00: 00 Dose 2022-0 No Unknown 3-24 00:00: 00 Dose 2022-0 No Unknown 3-24 00:00: 00 Dose 2022-0 No Unknown 3-24 00:00: 00 Dose 2022-0 No Unknown 3-24 00:00: 00 Dose 2022-0 No Unknown 3-24 00:00: 00 Dose 2022-0 No Unknown 3-24 00:00: 00 Dose 2022-0 No Unknown 3-24 00:00: 00 Dose 2022-0 No Unknown 3-24 00:00: 00 Dose 2022-0 No Unknown 3-24 00:00: 00 Dose 2022-0 No Unknown 3-24 00:00: 00 Dose 2022-0 No Unknown 3-24 00:00: 00 Dose 2022-0 No Unknown 3-24 00:00: 00 Dose 2022-0 No Unknown 3-24 00:00: 00 Dose 2022-0 No Unknown 3-24 00:00: 00 Dose 2022-0 No Unknown 3-24 00:00: 00 Dose 2022-0 No Unknown 3-24 00:00: 00 Dose 2022-0 No Unknown 3-24 00:00: 00 Dose 2022-0 No Unknown 3-24 00:00: 00 Dose 2022-0 No Unknown 3-24 00:00: 00 Dose 2022-0 No Unknown 3-24 00:00: 00 Dose 2022-0 No Unknown 3-24 00:00: 00 Dose 2022-0 No Unknown 3-24 00:00: 00 Dose 2022-0 No Unknown 3-24 00:00: 00 Dose 2022-0 No Unknown 3-24 00:00: 00 Dose 2022-0 No Unknown 3-24 00:00: 00 Dose 2022-0 No Unknown 3-24 00:00: 00 Dose 2022-0 No Unknown 3-24 00:00: 00 Dose 2022-0 No Unknown 3-24 00:00: 00 Dose 2022-0 No Unknown 3-24 00:00: 00 Dose 2022-0 No Unknown 3-24 00:00: 00 Dose 2022-0 No Unknown 3-24 00:00: 00 Dose 2022-0 No Unknown 3-24 00:00: 00 Dose 2022-0 No Unknown 3-24 00:00: 00 Dose 2022-0 No Unknown 3-24 00:00: 00 Dose 2022-0 No Unknown 3-24 00:00: 00 Dose 2022-0 No Unknown 3-24 00:00: 00 Dose 2022-0 No Unknown 3-24 00:00: 00 Dose 2022-0 No Unknown 3-24 00:00: 00 Dose 2022-0 No Unknown 3-24 00:00: 00 Dose 2022-0 No Unknown 3-24 00:00: 00 Dose 2022-0 No Unknown 3-24 00:00: 00 Dose 2022-0 No Unknown 3-24 00:00: 00 Dose 2022-0 No Unknown 3-24 00:00: 00 Dose 2022-0 No Unknown 3-24 00:00: 00 Dose 2022-0 No Unknown 3-24 00:00: 00 Dose 2022-0 No Unknown 3-24 00:00: 00 Dose 2022-0 No Unknown 3-24 00:00: 00 Dose 2022-0 No Unknown 3-24 00:00: 00 Dose 2022-0 No Unknown 3-24 00:00: 00 Dose 2022-0 No Unknown 3-24 00:00: 00 Dose 2022-0 No Unknown 3-24 00:00: 00 Dose 2022-0 No Unknown 3-24 00:00: 00 Dose 2022-0 No Unknown 3-24 00:00: 00 Dose 2022-0 No Unknown 3-24 00:00: 00 Dose 2022-0 No Unknown 3-24 00:00: 00 Dose 2022-0 No Unknown 3-24 00:00: 00 Dose 2022-0 No Unknown 3-24 00:00: 00 Dose 2022-0 No Unknown 3-24 00:00: 00 Dose 2022-0 No Unknown 3-24 00:00: 00 Dose 2022-0 No Unknown 3-24 00:00: 00 Dose 2022-0 No Unknown 3-24 00:00: 00 Dose 2022-0 No Unknown 3-24 00:00: 00 Dose 2022-0 No Unknown 3-24 00:00: 00 Dose 2022-0 No Unknown 3-02 00:00: 00 Dose 2022-0 No Unknown 3-02 00:00: 00 Dose 2022-0 No Unknown 3-02 00:00: 00 trazodone 2022-0 No 1mg 50 mg 3-02 tablet 00:00: 00 Dose 2022-0 No Unknown 3-02 00:00: 00 Dose 2022-0 No Unknown 3-02 00:00: 00 Dose 2022-0 No Unknown 3-02 00:00: 00 Dose 2022-0 No Unknown 3-02 00:00: 00 Dose 2022-0 No Unknown 3-02 00:00: 00 Dose 2022-0 No Unknown 3-02 00:00: 00 Dose 2022-0 No Unknown 3-02 00:00: 00 Dose 2022-0 No Unknown 3-02 00:00: 00 Dose 2022-0 No Unknown 3-02 00:00: 00 trazodone 2022-0 No 1mg 50 mg 3-02 tablet 00:00: 00 Dose 2022-0 No Unknown 3-02 00:00: 00 Dose 2022-0 No Unknown 3-02 00:00: 00 Dose 2022-0 No Unknown 3-02 00:00: 00 Dose 2022-0 No Unknown 3-02 00:00: 00 Dose 2022-0 No Unknown 3-02 00:00: 00 Dose 2022-0 No Unknown 3-02 00:00: 00 Dose 2022-0 No Unknown 3-02 00:00: 00 Dose 2022-0 No Unknown 3-02 00:00: 00 Dose 2022-0 No Unknown 3-02 00:00: 00 trazodone 2022-0 No 1mg 50 mg 3-02 tablet 00:00: 00 Dose 2022-0 No Unknown 3-02 00:00: 00 Dose 2022-0 No Unknown 3-02 00:00: 00 Dose 2022-0 No Unknown 3-02 00:00: 00 Dose 2022-0 No Unknown 3-02 00:00: 00 Dose 2022-0 No Unknown 3-02 00:00: 00 Dose 2022-0 No Unknown 3-02 00:00: 00 Dose 2022-0 No Unknown 3-02 00:00: 00 Dose 2022-0 No Unknown 3-02 00:00: 00 Dose 2022-0 No Unknown 3-02 00:00: 00 Dose 2022-0 No Unknown 3-02 00:00: 00 Dose 2022-0 No Unknown 3-02 00:00: 00 Dose 2022-0 No Unknown 3-02 00:00: 00 Dose 2022-0 No Unknown 3-02 00:00: 00 Dose 2022-0 No Unknown 3-02 00:00: 00 Dose 2022-0 No Unknown 3-02 00:00: 00 Dose 2022-0 No Unknown 3-02 00:00: 00 Dose 2022-0 No Unknown 3-02 00:00: 00 Dose 2022-0 No Unknown 3-02 00:00: 00 Dose 2022-0 No Unknown 3-02 00:00: 00 Dose 2022-0 No Unknown 3-02 00:00: 00 Dose 2022-0 No Unknown 3-02 00:00: 00 Dose 2022-0 No Unknown 3-02 00:00: 00 Dose 2022-0 No Unknown 3-02 00:00: 00 Dose 2022-0 No Unknown 3-02 00:00: 00 Dose 2022-0 No Unknown 3-02 00:00: 00 Dose 2022-0 No Unknown 3-02 00:00: 00 Dose 2022-0 No Unknown 3-02 00:00: 00 Dose 2022-0 No Unknown 3-02 00:00: 00 Dose 2022-0 No Unknown 3-02 00:00: 00 trazodone 2022-0 No 1mg 50 mg 3-02 tablet 00:00: 00 Dose 2022-0 No Unknown 3-02 00:00: 00 Dose 2022-0 No Unknown 3-02 00:00: 00 Dose 2022-0 No Unknown 3-02 00:00: 00 Dose 2022-0 No Unknown 3-02 00:00: 00 Dose 2022-0 No Unknown 3-02 00:00: 00 Dose 2022-0 No Unknown 3-02 00:00: 00 Dose 2022-0 No Unknown 3-02 00:00: 00 Dose 2022-0 No Unknown 3-02 00:00: 00 Dose 2022-0 No Unknown 3-02 00:00: 00 trazodone 2022-0 No 1mg 50 mg 3-02 tablet 00:00: 00 Dose 2022-0 No Unknown 3-02 00:00: 00 Dose 2022-0 No Unknown 3-02 00:00: 00 Dose 2022-0 No Unknown 3-02 00:00: 00 Dose 2022-0 No Unknown 3-02 00:00: 00 Dose 2022-0 No Unknown 3-02 00:00: 00 Dose 2022-0 No Unknown 3-02 00:00: 00 Dose 2022-0 No Unknown 3-02 00:00: 00 Dose 2022-0 No Unknown 3-02 00:00: 00 Dose 2022-0 No Unknown 3-02 00:00: 00 trazodone 2022-0 No 1mg 50 mg 3-02 tablet 00:00: 00 Dose 2022-0 No Unknown 3-02 00:00: 00 Dose 2022-0 No Unknown 3-02 00:00: 00 Dose 2022-0 No Unknown 3-02 00:00: 00 Dose 2022-0 No Unknown 3-02 00:00: 00 Dose 2022-0 No Unknown 3-02 00:00: 00 Dose 2022-0 No Unknown 3-02 00:00: 00 Dose 2022-0 No Unknown 3-02 00:00: 00 Dose 2022-0 No Unknown 3-02 00:00: 00 Dose 2022-0 No Unknown 3-02 00:00: 00 trazodone 2022-0 No 1mg 50 mg 3-02 tablet 00:00: 00 Dose 2022-0 No Unknown 3-02 00:00: 00 Dose 2022-0 No Unknown 3-02 00:00: 00 Dose 2022-0 No Unknown 3-02 00:00: 00 Dose 2022-0 No Unknown 3-02 00:00: 00 Dose 2022-0 No Unknown 3-02 00:00: 00 Dose 2022-0 No Unknown 3-02 00:00: 00 Dose 2022-0 No Unknown 3-02 00:00: 00 Dose 2022-0 No Unknown 3-02 00:00: 00 Dose 2022-0 No Unknown 3-02 00:00: 00 trazodone 2022-0 No 1mg 50 mg 3-02 tablet 00:00: 00 Dose 2022-0 No Unknown 3-02 00:00: 00 Dose 2022-0 No Unknown 3-02 00:00: 00 Dose 2022-0 No Unknown 3-02 00:00: 00 Dose 2022-0 No Unknown 3-02 00:00: 00 Dose 2022-0 No Unknown 3-02 00:00: 00 Dose 2022-0 No Unknown 3-02 00:00: 00 levofloxaci 2022-0 No 1mg n 500 mg 2-25 tablet 00:00: 00 levofloxaci 2022-0 No 1mg n 500 mg 2-25 tablet 00:00: 00 levofloxaci 2022-0 No 1mg n 500 mg 2-25 tablet 00:00: 00 Dose 2022-0 No Unknown 2-25 00:00: 00 Dose 2022-0 No Unknown 2-25 00:00: 00 levofloxaci 2022-0 No 1mg n 500 mg 2-25 tablet 00:00: 00 levofloxaci 2022-0 No 1mg n 500 mg 2-25 tablet 00:00: 00 levofloxaci 2022-0 No 1mg n 500 mg 2-25 tablet 00:00: 00 levofloxaci 2022-0 No 1mg n 500 mg 2-25 tablet 00:00: 00 levofloxaci 2022-0 No 1mg n 500 mg 2-25 tablet 00:00: 00 Dose 2022-0 No Unknown 2-23 00:00: 00 Dose 2022-0 No Unknown 2-23 00:00: 00 Dose 2022-0 No Unknown 2-23 00:00: 00 Dose 2022-0 No Unknown 2-23 00:00: 00 Dose 2022-0 No Unknown 2-23 00:00: 00 Dose 2022-0 No Unknown 2-23 00:00: 00 Dose 2022-0 No Unknown 2-23 00:00: 00 Dose 2022-0 No Unknown 2-23 00:00: 00 Dose 2022-0 No Unknown 2-23 00:00: 00 Dose 2022-0 No Unknown 2-23 00:00: 00 loratadine 2022-0 No 1mg 10 mg 2-18 tablet 00:00: 00 loratadine 2022-0 No 1mg 10 mg 2-18 tablet 00:00: 00 loratadine 2022-0 No 1mg 10 mg 2-18 tablet 00:00: 00 Dose 2022-0 No Unknown 2-18 00:00: 00 Dose 2022-0 No Unknown 2-18 00:00: 00 loratadine 2022-0 No 1mg 10 mg 2-18 tablet 00:00: 00 loratadine 2022-0 No 1mg 10 mg 2-18 tablet 00:00: 00 loratadine 2022-0 No 1mg 10 mg 2-18 tablet 00:00: 00 loratadine 2022-0 No 1mg 10 mg 2-18 tablet 00:00: 00 loratadine 2022-0 No 1mg 10 mg 2-18 tablet 00:00: 00 Dose 2022-0 No Unknown 2-17 00:00: 00 Dose 2022-0 No Unknown 2-17 00:00: 00 Dose 2022-0 No Unknown 2-17 00:00: 00 Dose 2022-0 No Unknown 2-17 00:00: 00 Dose 2022-0 No Unknown 2-17 00:00: 00 Dose 2022-0 No Unknown 2-17 00:00: 00 Dose 2022-0 No Unknown 2-17 00:00: 00 Dose 2022-0 No Unknown 2-17 00:00: 00 Dose 2022-0 No Unknown 2-17 00:00: 00 Dose 2022-0 No Unknown 2-17 00:00: 00 Dose 2022-0 No Unknown 2-17 00:00: 00 Dose 2022-0 No Unknown 2-17 00:00: 00 Dose 2022-0 No Unknown 2-17 00:00: 00 Dose 2022-0 No Unknown 2-17 00:00: 00 Dose 2022-0 No Unknown 2-17 00:00: 00 Dose 2022-0 No Unknown 2-17 00:00: 00 Dose 2022-0 No Unknown 2-17 00:00: 00 Dose 2022-0 No Unknown 2-17 00:00: 00 Dose 2022-0 No Unknown 2-17 00:00: 00 Dose 2022-0 No Unknown 2-17 00:00: 00 Dose 2022-0 No Unknown 2-17 00:00: 00 Dose 2022-0 No Unknown 2-17 00:00: 00 Dose 2022-0 No Unknown 2-17 00:00: 00 Dose 2022-0 No Unknown 2-17 00:00: 00 Dose 2022-0 No Unknown 2-17 00:00: 00 Dose 2022-0 No Unknown 2-17 00:00: 00 Dose 2022-0 No Unknown 2-17 00:00: 00 Dose 2022-0 No Unknown 2-17 00:00: 00 Dose 2022-0 No Unknown 2-17 00:00: 00 Dose 2022-0 No Unknown 2-17 00:00: 00 Dose 2022-0 No Unknown 2-08 00:00: 00 Dose 2022-0 No Unknown 2-08 00:00: 00 Dose 2022-0 No Unknown 2-08 00:00: 00 Dose 2022-0 No Unknown 2-08 00:00: 00 Dose 2022-0 No Unknown 2-08 00:00: 00 Dose 2022-0 No Unknown 2-08 00:00: 00 Dose 2022-0 No Unknown 2-08 00:00: 00 Dose 2022-0 No Unknown 2-08 00:00: 00 Dose 2022-0 No Unknown 2-08 00:00: 00 Dose 2022-0 No Unknown 2-08 00:00: 00 Dose 2022-0 No Unknown 2-08 00:00: 00 Dose 2022-0 No Unknown 2-08 00:00: 00 Dose 2022-0 No Unknown 2-08 00:00: 00 Dose 2022-0 No Unknown 2-08 00:00: 00 Dose 2022-0 No Unknown 2-08 00:00: 00 Dose 2022-0 No Unknown 2-08 00:00: 00 Dose 2022-0 No Unknown 2-08 00:00: 00 Dose 2022-0 No Unknown 2-08 00:00: 00 Dose 2022-0 No Unknown 2-08 00:00: 00 Dose 2022-0 No Unknown 2-08 00:00: 00 Dose 2022-0 No Unknown 2-03 00:00: 00 Dose 2022-0 No Unknown 2-03 00:00: 00 Dose 2022-0 No Unknown 2-03 00:00: 00 Dose 2022-0 No Unknown 2-03 00:00: 00 Dose 2022-0 No Unknown 2-03 00:00: 00 Dose 2022-0 No Unknown 2-03 00:00: 00 Dose 2022-0 No Unknown 2-03 00:00: 00 Dose 2022-0 No Unknown 2-03 00:00: 00 Dose 2022-0 No Unknown 2-03 00:00: 00 Dose 2022-0 No Unknown 2-03 00:00: 00 Dose 2022-0 No Unknown 1-26 00:00: 00 Dose 2022-0 No Unknown 1- 00:00: 00 Dose 2022-0 No Unknown 1 00:00: 00 Dose 2022-0 No Unknown 1 00:00: 00 Dose 2022-0 No Unknown 1 00:00: 00 Dose 2022-0 No Unknown 1 00:00: 00 Dose 2022-0 No Unknown 1 00:00: 00 Dose 2022-0 No Unknown 1- 00:00: 00 Dose 2022-0 No Unknown 1 00:00: 00 Dose 2022-0 No Unknown 1 00:00: 00 Dose 2022-0 No Unknown 1 00:00: 00 Dose 2022-0 No Unknown 1 00:00: 00 Dose 2022-0 No Unknown 1 00:00: 00 Dose 2022-0 No Unknown 04-28 00:00: 00 Dose 2022-0 No Unknown 1 00:00: 00 Dose 2022-0 No Unknown 1 00:00: 00 Dose 2022-0 No Unknown 1 00:00: 00 Dose 2022-0 No Unknown 1 00:00: 00 Dose 2022-0 No Unknown 04-28 00:00: 00 Dose 2022-0 No Unknown 04-28 00:00: 00 Dose 2022-0 No Unknown 1- 00:00: 00 Dose 2022-0 No Unknown 1- 00:00: 00 Dose 2022-0 No Unknown - 00:00: 00 Dose 2022-0 No Unknown 1- 00:00: 00 Dose 2022-0 No Unknown 1- 00:00: 00 Dose 2022-0 No Unknown 1-12 00:00: 00 Dose 2022-0 No Unknown 1-12 00:00: 00 Dose 2022-0 No Unknown 1-12 00:00: 00 Dose 2022-0 No Unknown 1-12 00:00: 00 Dose 2022-0 No Unknown 1-12 00:00: 00 Dose 2022-0 No Unknown 1-12 00:00: 00 Dose 2022-0 No Unknown 1-12 00:00: 00 Dose 2022-0 No Unknown 1-12 00:00: 00 Dose 2022-0 No Unknown 1-12 00:00: 00 Dose 2022-0 No Unknown 1-12 00:00: 00 Dose 2022-0 No Unknown 1-12 00:00: 00 Dose 2022-0 No Unknown 1-12 00:00: 00 Dose 2022-0 No Unknown 1-12 00:00: 00 Dose 2022-0 No Unknown 1-12 00:00: 00 Dose 2022-0 No Unknown 1-12 00:00: 00 Dose 2022-0 No Unknown 1-07 00:00: 00 Dose 2022-0 No Unknown 1-07 00:00: 00 Dose 2022-0 No Unknown 1-07 00:00: 00 Dose 2022-0 No Unknown 1-07 00:00: 00 Dose 2022-0 No Unknown 1-07 00:00: 00 Dose 2022-0 No Unknown 1-07 00:00: 00 Dose 2022-0 No Unknown 1-07 00:00: 00 Dose 2022-0 No Unknown 1-07 00:00: 00 Dose 2022-0 No Unknown 1-07 00:00: 00 Dose 2022-0 No Unknown 1-07 00:00: 00 ondansetron 1-1 No 1mg HCl 4 mg 2-16 tablet 00:00: 00 quetiapine 2021-1 No 1mg 100 mg 2-16 tablet 00:00: 00 Ubrelvy 50 1-1 No 1mg mg tablet 2-16 00:00: 00 quetiapine 2021-1 No 1mg 100 mg 2-16 tablet 00:00: 00 Dose 1-1 No Unknown 2-16 00:00: 00 ondansetron 1-1 No 1mg HCl 4 mg 2-16 tablet 00:00: 00 hydromorpho 1-1 No 1mg ne 4 mg 2-16 tablet 00:00: 00 quetiapine 2020-1 No 1mg 300 mg 2-16 tablet 00:00: 00 tizanidine 2020-04 No 1mg 4 mg 2-16 capsule 00:00: 00 hydromorpho 1 No 1mg ne 4 mg 2-16 tablet 00:00: 00 quetiapine 2020-1 No 1mg 300 mg 2-16 tablet 00:00: 00 Dose 2020- No Unknown 2-16 00:00: 00 Ubrelvy 50 2020-04 No 1mg mg tablet 2-16 00:00: 00 Dose 2020-04 No Unknown 2-16 00:00: 00 Dose 2020- No Unknown 2-16 00:00: 00 ondansetron 2020-04 No 1mg HCl 4 mg 2-16 tablet 00:00: 00 hydromorpho 2020-04 No 1mg ne 4 mg 2-16 tablet 00:00: 00 Dose 2020-04 No Unknown 2-16 00:00: 00 tizanidine 2020-04 No 1mg 4 mg 2-16 capsule 00:00: 00 tizanidine 2020-04 No 1mg 4 mg 2-16 capsule 00:00: 00 Dose 2020- No Unknown 2-16 00:00: 00 Ubrelvy 50 2020-04 No 1mg mg tablet 2-16 00:00: 00 Dose 2020-04 No Unknown 2-16 00:00: 00 Dose 2020-1 No Unknown 2-16 00:00: 00 ondansetron 2020-04 No 1mg HCl 4 mg 2-16 tablet 00:00: 00 hydromorpho 2020-04 No 1mg ne 4 mg 2-16 tablet 00:00: 00 Dose 2020- No Unknown 2-16 00:00: 00 tizanidine 2020- No 1mg 4 mg 2-16 capsule 00:00: 00 Ubrelvy 50 2020-04 No 1mg mg tablet 2-16 00:00: 00 Dose 2020- No Unknown 2-16 00:00: 00 hydromorpho 2020-04 No 1mg ne 4 mg 2-16 tablet 00:00: 00 Dose 2020- No Unknown 2-16 00:00: 00 Dose 2020-1 No Unknown 2-16 00:00: 00 Dose 1-1 No Unknown 2-16 00:00: 00 Dose 1-1 No Unknown 2-16 00:00: 00 Dose 2020-1 No Unknown 2-16 00:00: 00 Ubrelvy 50 2020-1 No 1mg mg tablet 2-16 00:00: 00 Dose 1-1 No Unknown 2-16 00:00: 00 hydromorpho 2020-1 No 1mg ne 4 mg 2-16 tablet 00:00: 00 Dose 2020-1 No Unknown 2-16 00:00: 00 Dose 2020-1 No Unknown 2-16 00:00: 00 Dose 2020-1 No Unknown 2-16 00:00: 00 Dose 2020-1 No Unknown 2-16 00:00: 00 Dose 2020-1 No Unknown 2-16 00:00: 00 quetiapine 2020-1 No 1mg 100 mg 2-16 tablet 00:00: 00 Ubrelvy 50 2020-1 No 1mg mg tablet 2-16 00:00: 00 quetiapine 2020-1 No 1mg 100 mg 2-16 tablet 00:00: 00 Dose 2020-1 No Unknown 2-16 00:00: 00 ondansetron 2020-1 No 1mg HCl 4 mg 2-16 tablet 00:00: 00 hydromorpho 2020-1 No 1mg ne 4 mg 2-16 tablet 00:00: 00 quetiapine 2020-1 No 1mg 300 mg 2-16 tablet 00:00: 00 tizanidine 2020-1 No 1mg 4 mg 2-16 capsule 00:00: 00 quetiapine 2020-1 No 1mg 100 mg 2-16 tablet 00:00: 00 Ubrelvy 50 2020-1 No 1mg mg tablet 2-16 00:00: 00 quetiapine 2020-1 No 1mg 100 mg 2-16 tablet 00:00: 00 Dose 2020-1 No Unknown 2-16 00:00: 00 ondansetron 2020-1 No 1mg HCl 4 mg 2-16 tablet 00:00: 00 hydromorpho 2020-1 No 1mg ne 4 mg 2-16 tablet 00:00: 00 quetiapine 2020-1 No 1mg 300 mg 2-16 tablet 00:00: 00 tizanidine 2020-1 No 1mg 4 mg 2-16 capsule 00:00: 00 quetiapine 2020-1 No 1mg 100 mg 2-16 tablet 00:00: 00 Ubrelvy 50 2020-1 No 1mg mg tablet 2-16 00:00: 00 quetiapine 2020-1 No 1mg 100 mg 2-16 tablet 00:00: 00 Dose 2020-1 No Unknown 2-16 00:00: 00 ondansetron 2020-1 No 1mg HCl 4 mg 2-16 tablet 00:00: 00 hydromorpho 2020- No 1mg ne 4 mg 2-16 tablet 00:00: 00 quetiapine 2020-1 No 1mg 300 mg 2-16 tablet 00:00: 00 tizanidine 2020-1 No 1mg 4 mg 2-16 capsule 00:00: 00 quetiapine 2020-1 No 1mg 100 mg 2-16 tablet 00:00: 00 Ubrelvy 50 2020-1 No 1mg mg tablet 2-16 00:00: 00 quetiapine 2020-1 No 1mg 100 mg 2-16 tablet 00:00: 00 quetiapine 2020-1 No 1mg 100 mg 2-16 tablet 00:00: 00 Ubrelvy 50 2020-1 No 1mg mg tablet 2-16 00:00: 00 quetiapine 2020-1 No 1mg 100 mg 2-16 tablet 00:00: 00 Dose 2020-1 No Unknown 2-16 00:00: 00 ondansetron 2020-1 No 1mg HCl 4 mg 2-16 tablet 00:00: 00 hydromorpho 2020-1 No 1mg ne 4 mg 2-16 tablet 00:00: 00 quetiapine 2020-1 No 1mg 300 mg 2-16 tablet 00:00: 00 tizanidine 2020-1 No 1mg 4 mg 2-16 capsule 00:00: 00 Dose 2020-1 No Unknown 2-16 00:00: 00 Immunizations Ordered Immunization Filled Immunization Date Status Commen ts Source Name Name Tdap 2021-06-25 Completed 00:00:00 Tdap 2021-06-25 Completed 00:00:00 Tdap 2021-06-25 Completed 00:00:00 Tdap 2021-06-25 Completed 00:00:00 Tdap 2021-06-25 Completed 00:00:00 Tdap 2021-06-25 Completed 00:00:00 Tdap 2021-06-25 Completed 00:00:00 Tdap 2021-06-25 Completed 00:00:00 Tdap 2021-06-25 Completed 00:00:00 Tdap 2021-06-25 Completed 00:00:00 Vital Signs Vital Name Observation Time Observation Value Comments Source Systolic blood 2022-09-11 18:56:00 105 mm[Hg] [facility] of pressure [facility] Diastolic blood 2022-09-11 18:56:00 65 mm[Hg] Unive rsity of pressure [facility] Heart rate 2022-09-11 18:56:00 86 /min [facility] Respiratory rate 2022-09-11 18:56:00 12 /[facility] 2022-09-11 18:56:00 95 /min [facility] Arterial blood by [facility] Pulse oximetry Branch Body temperature 2022-09-11 16:39:00 37.11 Alexsandra [facility] ersity of [facility] Body height 2022-09-11 16:39:00 165.1 cm [facility] Body weight 2022-09-11 16:39:00 70.308 kg [facility] ty [facility] BMI 2022-09-11 16:39:00 25.79 kg/m2 [facility] Systolic blood 2022-08-18 22:08:00 92 mm[Hg] [facility] Diastolic blood 2022-08-18 22:08:00 79 mm[Hg] Unive rsity of pressure [facility] Heart rate 2022-08-18 22:08:00 104 /min [facility] Body temperature 2022-08-18 22:08:00 36.5 Alexsandra [facility] Respiratory rate 2022-08-18 22:08:00 16 /min [facility] ers[facility] Body height 2022-08-18 22:08:00 152.4 cm [facility] Body weight 2022-08-18 22:08:00 72.576 kg [facility] BMI 2022-08-18 22:08:00 31.25 kg/m2 [facility] Oxygen saturation in 2022-08-18 22:08:00 99 /min [facility] Arterial blood by [facility] Pulse oximetry Branch Heart rate 2022-06-22 15:50:00 97 /min [facility] Branch Oxygen saturation in 2022-06-22 15:50:00 95 /min [facility] blood by [facility] Pulse oximetry Branch Systolic blood 2022-06-22 13:42:00 150 mm[Hg] [facility] [place] [facility] Diastolic blood 2022-06-22 13:42:00 52 mm[Hg] [facility] [place] [facility] Body temperature 2022-06-22 13:27:00 36.44 Alexsandra [facility] [place] [facility] Respiratory rate 2022-06-22 13:27:00 16 /min [facility] [place] [facility] Body height 2022-06-22 11:21:00 152.4 cm [facility] [place] [facility] Body weight 2022-06-22 11:21:00 75.1 kg [facility] [place] [facility] BMI 2022-06-22 11:21:00 32.33 kg/m2 [facility] [place] [facility] Heart rate 2022-06-22 14:30:00 80 /min [facility] [place] [facility] Oxygen saturation in 2022-06-22 14:30:00 96 /min [facility] Arter[facility] blood by [facility] Pulse oximetry Branch Systolic blood 2022-06-22 13:42:00 150 mm[Hg] [facility] [place] [facility] Diastolic blood 2022-06-22 13:42:00 52 mm[Hg] [facility] [place] [facility] Body temperature 2022-06-22 13:27:00 36.44 Alexsandra [facility] [place] [facility] Respiratory rate 2022-06-22 13:27:00 16 /min [facility] [place] [facility] Body height 2022-06-22 11:21:00 152.4 cm [facility] [place] [facility] Body weight 2022-06-22 11:21:00 75.1 kg [facility] [place] [facility] BMI 2022-06-22 11:21:00 32.33 kg/m2 [facility] [place] [facility] Body height 2022-06-16 21:42:00 152.4 cm [facility] [place] [facility] Body weight 2022-06-16 21:42:00 77.111 kg [facility] [place] [facility] BMI 2022-06-16 21:42:00 33.20 kg/m2 [facility] [place] [facility] Systolic blood 2022-06-07 01:00:00 129 mm[Hg] [facility] [place] [facility] Diastolic blood 2022-06-07 01:00:00 83 mm[Hg] [facility] [place] [facility] Heart rate 2022-06-07 01:00:00 98 /min [facility] [place] [facility] Respiratory rate 2022-06-07 01:00:00 20 /min [facility] [place] [facility] Oxygen saturation in 2022-06-07 01:00:00 90 /min [facility] [place] [facility] [facility] Pulse oximetry Branch Body temperature 2022-06-06 19:29:00 36.89 Alexsandra [facility] [place] [facility] Body weight 2022-06-06 19:29:00 77.111 kg [facility] [place] [facility] BMI 2022-06-06 19:29:00 33.20 kg/m2 [facility] [place] [facility] Systolic blood 2022-02-13 00:18:00 139 mm[Hg] [facility] [place] [facility] Diastolic blood 2022-02-13 00:18:00 69 mm[Hg] [facility] [place] [facility] Heart rate 2022-02-13 00:18:00 105 /min [facility] [place] [facility] Respiratory rate 2022-02-13 00:18:00 18 /min [facility] [place] [facility] Oxygen saturation in 2022-02-13 00:18:00 97 /min [facility] by [place] [facility] [facility] Pulse oximetry Branch Body temperature 2022-02-12 22:17:00 36.83 Alexsandra [facility] [place] [facility] Body height 2022-02-12 22:17:00 152.4 cm [facility] [place] [facility] Body weight 2022-02-12 22:17:00 78.472 kg [facility] [place] [facility] BMI 2022-02-12 22:17:00 33.79 kg/m2 [facility] BP Systolic 2022-04-19 10:53:00 102 mm[Hg] BP Diastolic 2022-04-19 10:53:00 58 mm[Hg] Weight Measured 2022-04-19 10:53:00 168.80 pounds Height Measured 2022-04-19 10:53:00 60.00 inches Body Temperature 2022-04-19 10:53:00 98.30 degrees Heart Rate 2022-04-19 10:53:00 104.00 /min Respiratory Rate 2022-04-19 10:53:00 17.00 /min BP Systolic 2021-12-30 15:35:00 122 mm[Hg] BP Diastolic 2021-12-30 15:35:00 88 mm[Hg] Weight Measured 2021-12-30 15:35:00 217.10 pounds Height Measured 2021-12-30 15:35:00 60.00 inches Body Temperature 2021-12-30 15:35:00 98.50 degrees Heart Rate 2021-12-30 15:35:00 120.00 /min Respiratory Rate 2021-12-30 15:35:00 20.00 /min BP Systolic 2021-12-03 13:34:00 131 mm[Hg] BP Diastolic 2021-12-03 13:34:00 66 mm[Hg] Weight Measured 2021-12-03 13:34:00 175.00 pounds Height Measured 2021-12-03 13:34:00 60.00 inches Body Temperature 2021-12-03 13:34:00 98.60 degrees Heart Rate 2021-12-03 13:34:00 105.00 /min Respiratory Rate 2021-12-03 13:34:00 BP Systolic 2021-09-16 16:27:00 134 mm[Hg] BP Diastolic 2021-09-16 16:27:00 89 mm[Hg] Weight Measured 2021-09-16 16:27:00 168.20 pounds Height Measured 2021-09-16 16:27:00 60.00 inches Body Temperature 2021-09-16 16:27:00 98.80 degrees Heart Rate 2021-09-16 16:27:00 109.00 /min Respiratory Rate 2021-09-16 16:27:00 BP Systolic 2021-09-15 14:50:00 122 mm[Hg] BP Diastolic 2021-09-15 14:50:00 84 mm[Hg] Weight Measured 2021-09-15 14:50:00 168.80 pounds Height Measured 2021-09-15 14:50:00 60.00 inches Body Temperature 2021-09-15 14:50:00 98.50 degrees Heart Rate 2021-09-15 14:50:00 108.00 /min Respiratory Rate 2021-09-15 14:50:00 18.00 /min BP Systolic 2021-08-03 11:52:00 110 mm[Hg] BP Diastolic 2021-08-03 11:52:00 77 mm[Hg] Weight Measured 2021-08-03 11:52:00 164.40 pounds Height Measured 2021-08-03 11:52:00 60.00 inches Body Temperature 2021-08-03 11:52:00 98.40 degrees Heart Rate 2021-08-03 11:52:00 100.00 /min Respiratory Rate 2021-08-03 11:52:00 BP Systolic 2021-06-25 10:56:00 118 mm[Hg] BP Diastolic 2021-06-25 10:56:00 78 mm[Hg] Weight Measured 2021-06-25 10:56:00 170.00 pounds Height Measured 2021-06-25 10:56:00 60.00 inches Body Temperature 2021-06-25 10:56:00 98.60 degrees Heart Rate 2021-06-25 10:56:00 95.00 /min Respiratory Rate 2021-06-25 10:56:00 BP Systolic 2021-05-28 14:23:00 BP Diastolic 2021-05-28 14:23:00 Weight Measured 2021-05-28 14:23:00 170.00 pounds Height Measured 2021-05-28 14:23:00 60.00 inches Body Temperature 2021-05-28 14:23:00 Heart Rate 2021-05-28 14:23:00 Respiratory Rate 2021-05-28 14:23:00 BP Systolic 2021-05-20 17:01:00 130 mm[Hg] BP Diastolic 2021-05-20 17:01:00 86 mm[Hg] Weight Measured 2021-05-20 17:01:00 170.40 pounds Height Measured 2021-05-20 17:01:00 60.00 inches Body Temperature 2021-05-20 17:01:00 97.80 degrees Heart Rate 2021-05-20 17:01:00 108.00 /min Respiratory Rate 2021-05-20 17:01:00 BP Systolic 2021-04-09 13:40:00 134 mm[Hg] BP Diastolic 2021-04-09 13:40:00 87 mm[Hg] Weight Measured 2021-04-09 13:40:00 169.80 pounds Height Measured 2021-04-09 13:40:00 60.00 inches Body Temperature 2021-04-09 13:40:00 98.30 degrees Heart Rate 2021-04-09 13:40:00 108.00 /min Respiratory Rate 2021-04-09 13:40:00 BP Systolic 2021-03-18 14:06:00 83 mm[Hg] BP Diastolic 2021-03-18 14:06:00 57 mm[Hg] Weight Measured 2021-03-18 14:06:00 169.00 pounds Height Measured 2021-03-18 14:06:00 60.00 inches Body Temperature 2021-03-18 14:06:00 97.30 degrees Heart Rate 2021-03-18 14:06:00 89.00 /min Respiratory Rate 2021-03-18 14:06:00 Procedures Procedure Date / Time Performed Performing Clinician [facility] e POCT TEST 2022-09-11 16:57:00 Mónica Abraham [facility] URINALYSIS 2022-09-11 16:56:00 Mónica Abraham [facility] LIPASE 2022-09-11 16:52:00 Mónica Abraham [facility] MAGNESIUM 2022-09-11 16:52:00 Mónica Abraham [facility] COMP. METABOLIC PANEL 2022-09-11 16:52:00 Mónica Abraham [facility] ([id number] CBC WITH DIFF 2022-09-11 16:52:00 Mónica Abraham [facility] CONSENT/REFUSAL FOR 2022-09-11 16:28:48 Doctor Unassigned, No [facility] [place] [facility] AND [facility] Medical Branch TREATMENT CONSENT/REFUSAL FOR 2022-08-18 21:52:50 [facility]igned, No [facility] [place] [facility] Branch TREATMENT ANKLE LATERAL LIGAMENT 2022-06-22 12:05:00 [facility] ASSIGNMENT OF BENEFITS 2022-06-22 10:25:38 Doctor Unassigned, No [facility] POCT TEST 2022-06-22 00:00:00 Leander Mahmood [facility] POCT TEST 2022-06-22 00:00:00 Leander Mahmood [facility] COMP. METABOLIC PANEL 2022-06-07 00:35[facility]00 [id number] CT ABDOMEN PELVIS W 2022-06-06 23:43:56 Manuel Celsa [facility] CONTRAST [facility] POCT TEST 2022-06-06 22:01:00 Manuel [facility] LIPASE 2022-06-06 21:58[facility]FF 2022-06-06 21:58:00 [facility] URINALYSIS 2022-06-06 21:58:00 [facility] CONSENT/REFUSAL FOR 2022-06-06 19:21:58 Doctor Unassigned, No [facility] [place] [facility] AND [facility] Medical Branch TREATMENT ASSIGNMENT OF BENEFITS 2022-05-06 19:41:17 Doctor Unassigned, No [facility] XR ANKLE 3+ VW RIGHT 2022-02-12 23:28:03 Eduardo Don [facility] XR FOOT <3 VW RIGHT 2022-02-12 23:28:03 Eduardo Don [facility] XR TIBIA FIBULA 2 VW 2022-02-12 23:28:03 Eduardo Don [facility] CONSENT/REFUSAL FOR 2022-02-12 22:10:57 Doctor Unassigned, No Un [facility] DIAGNOSIS AND Name Medical Branch TREATMENT XR CHEST 2 VW 2021-12-03 20:05:36 Yuliana Garcia [facility] XR CHEST 2 VW 2021-07-30 15:52:36 Requisition, Paper [facility] ASSIGNMENT OF BENEFITS 2021-07-30 15:06:42 Doctor Unassigned, No [facility] Name Medical Branch REFERRAL- 2021 05:01:00 Doctor Unassigned, No [facility] REQUEST/RESPONSE Name Medical Branch Plan of Care Planned Activity Planned Date Details Comments Source Goal Plan of Care Note [code = 03707-0] Goal Plan of Care Note [code = 93174-8] Goal Plan of Care Note [code = 16288-6] Goal Plan of Care Note [code = 66771-9] Goal Plan of Care Note [code = 63756-5] Goal Plan of Care Note [code = 42163-7] Goal Plan of Care Note [code = 59175-1] Goal Plan of Care Note [code = 04626-0] Goal Plan of Care Note [code = 61429-5] Goal Plan of Care Note [code = 34060-8] Goal Plan of Care Note [code = 72943-6] Goal Plan of Care Note [code = 67651-8] Goal Plan of Care Note [code = 39723-5] Goal Plan of Care Note [code = 22222-6] Goal Plan of Care Note [code = 91056-0] Goal Plan of Care Note [code = 26559-0] Goal Plan of Care Note [code = 82001-2] Goal Plan of Care Note [code = 08137-0] Goal Plan of Care Note [code = 78447-5] Goal Plan of Care Note [code = 75388-2] Goal Plan of Care Note [code = 59778-1] Goal Plan of Care Note [code = 25004-9] Goal Plan of Care Note [code = 29586-5] Goal Plan of Care Note [code = 89221-9] Goal Plan of Care Note [code = 58940-0] Goal Plan of Care Note [code = 80281-9] Goal Plan of Care Note [code = 11519-5] Goal Plan of Care Note [code = 14566-0] Goal Plan of Care Note [code = 13791-0] Goal Plan of Care Note [code = 55617-3] Goal Plan of Care Note [code = 81927-0] Goal Plan of Care Note [code = 02587-1] Goal Plan of Care Note [code = 38251-7] Goal Plan of Care Note [code = 31373-7] Goal Plan of Care Note [code = 65750-2] Goal Plan of Care Note [code = 37825-4] Goal Plan of Care Note [code = 36241-0] Goal Plan of Care Note [code = 46049-3] Goal Plan of Care Note [code = 12820-3] Goal Plan of Care Note [code = 13782-4] Goal Plan of Care Note [code = 46436-2] Goal Plan of Care Note [code = 03579-1] Goal Plan of Care Note [code = 37027-6] Goal Plan of Care Note [code = 96285-3] Goal Plan of Care Note [code = 13202-6] Goal Plan of Care Note [code = 89619-3] Goal Plan of Care Note [code = 21844-9] Goal Plan of Care Note [code = 93110-9] Goal Plan of Care Note [code = 62749-6] Goal Plan of Care Note [code = 81309-8] Goal Plan of Care Note [code = 20306-2] Goal Plan of Care Note [code = 83857-5] Goal Plan of Care Note [code = 84962-9] Goal Plan of Care Note [code = 86716-8] Goal Plan of Care Note [code = 51585-6] Goal Plan of Care Note [code = 07128-2] Goal Plan of Care Note [code = 55415-4] Goal Plan of Care Note [code = 29742-4] Goal Plan of Care Note [code = 28234-9] Goal Plan of Care Note [code = 34541-6] Goal Plan of Care Note [code = 08169-8] Goal Plan of Care Note [code = 08621-1] Goal Plan of Care Note [code = 91385-7] Goal Plan of Care Note [code = 90075-1] Goal Plan of Care Note [code = 68453-9] Goal Plan of Care Note [code = 06240-9] Goal Plan of Care Note [code = 40183-7] Goal Plan of Care Note [code = 67863-1] Goal Plan of Care Note [code = 79271-2] Goal Plan of Care Note [code = 80843-9] Goal Plan of Care Note [code = 19609-4] Goal Plan of Care Note [code = 32335-4] Goal Plan of Care Note [code = 32155-5] Goal Plan of Care Note [code = 05568-0] Goal Plan of Care Note [code = 43815-4] Goal Plan of Care Note [code = 13692-1] Goal Plan of Care Note [code = 19111-8] Goal Plan of Care Note [code = 88644-4] Goal Plan of Care Note [code = 16697-3] Goal Plan of Care Note [code = 25957-8] Goal Plan of Care Note [code = 70272-6] Goal Plan of Care Note [code = 12835-0] Goal Plan of Care Note [code = 85754-8] Goal Plan of Care Note [code = 41928-1] Goal Plan of Care Note [code = 15682-1] Goal Plan of Care Note [code = 96371-6] Goal Plan of Care Note [code = 01364-7] Goal Plan of Care Note [code = 31701-0] Goal Plan of Care Note [code = 64103-2] Goal Plan of Care Note [code = 51940-4] Goal Plan of Care Note [code = 24943-1] Goal Plan of Care Note [code = 85860-2] Goal Plan of Care Note [code = 04506-8] Goal Plan of Care Note [code = 62368-7] Goal Plan of Care Note [code = 01027-9] Goal Plan of Care Note [code = 98778-6] Goal Plan of Care Note [code = 16522-6] Goal Plan of Care Note [code = 92901-8] Goal Plan of Care Note [code = 32509-8] Goal Plan of Care Note [code = 41363-4] Goal Plan of Care Note [code = 69038-8] Goal Plan of Care Note [code = 94471-7] Goal Plan of Care Note [code = 48792-4] Goal Plan of Care Note [code = 53859-2] Goal Plan of Care Note [code = 84328-7] Goal Plan of Care Note [code = 32094-8] Goal Plan of Care Note [code = 31467-9] Goal Plan of Care Note [code = 41211-8] Goal Plan of Care Note [code = 49219-6] Goal Plan of Care Note [code = 08233-1] Goal Plan of Care Note [code = 16008-5] Goal Plan of Care Note [code = 51253-0] Goal Plan of Care Note [code = 24984-2] Goal Plan of Care Note [code = 86005-4] Goal Plan of Care Note [code = 81962-7] Goal Plan of Care Note [code = 89863-7] Goal Plan of Care Note [code = 50068-2] Goal Plan of Care Note [code = 15983-6] Goal Plan of Care Note [code = 63998-6] Goal Plan of Care Note [code = 73640-4] Goal Plan of Care Note [code = 43625-1] Goal Plan of Care Note [code = 64063-0] Goal Plan of Care Note [code = 27915-1] Goal Plan of Care Note [code = 00525-6] Goal Plan of Care Note [code = 29712-2] Goal Plan of Care Note [code = 28807-2] Goal Plan of Care Note [code = 44296-6] Goal Plan of Care Note [code = 12438-0] Goal Plan of Care Note [code = 10181-0] Goal Plan of Care Note [code = 06592-2] Goal Plan of Care Note [code = 67820-5] Goal Plan of Care Note [code = 92537-2] Goal Plan of Care Note [code = 48845-6] Goal Plan of Care Note [code = 24738-1] Goal Plan of Care Note [code = 67335-0] Goal Plan of Care Note [code = 63228-0] Goal Plan of Care Note [code = 88568-7] Goal Plan of Care Note [code = 70718-8] Goal Plan of Care Note [code = 84621-5] Goal Plan of Care Note [code = 18021-4] Goal Plan of Care Note [code = 19049-1] Goal Plan of Care Note [code = 69595-6] Goal Plan of Care Note [code = 46371-5] Goal Plan of Care Note [code = 41496-8] Goal Plan of Care Note [code = 73320-5] Goal Plan of Care Note [code = 48563-3] Goal Plan of Care Note [code = 32037-0] Goal Plan of Care Note [code = 67613-7] Goal Plan of Care Note [code = 35622-6] Goal Plan of Care Note [code = 28234-3] Goal Plan of Care Note [code = 41454-6] Goal Plan of Care Note [code = 21269-0] Goal Plan of Care Note [code = 11011-9] Goal Plan of Care Note [code = 16550-3] Goal Plan of Care Note [code = 93121-6] Goal Plan of Care Note [code = 27465-6] Goal Plan of Care Note [code = 29804-2] Goal Plan of Care Note [code = 16753-0] Goal Plan of Care Note [code = 92653-4] Goal Plan of Care Note [code = 93983-8] Goal Plan of Care Note [code = 52060-6] Goal Plan of Care Note [code = 24232-2] Goal Plan of Care Note [code = 51985-4] Goal Plan of Care Note [code = 70657-1] Goal Plan of Care Note [code = 63578-7] Goal Plan of Care Note [code = 20895-3] Goal Plan of Care Note [code = 24854-3] Goal Plan of Care Note [code = 41672-1] Goal Plan of Care Note [code = 25590-1] Goal Plan of Care Note [code = 31988-3] Goal Plan of Care Note [code = 79907-6] Goal Plan of Care Note [code = 47994-5] Goal Plan of Care Note [code = 99349-4] Goal Plan of Care Note [code = 65459-6] Goal Plan of Care Note [code = 97676-9] Goal Plan of Care Note [code = 21547-2] Goal Plan of Care Note [code = 02067-4] Goal Plan of Care Note [code = 10357-5] Goal Plan of Care Note [code = 82529-1] Goal Plan of Care Note [code = 29844-7] Goal Plan of Care Note [code = 52633-5] Goal Plan of Care Note [code = 33879-5] Goal Plan of Care Note [code = 26635-7] Goal Plan of Care Note [code = 22556-0] Goal Plan of Care Note [code = 72157-9] Goal Plan of Care Note [code = 68151-9] Goal Plan of Care Note [code = 66334-6] Goal Plan of Care Note [code = 50864-6] Goal Plan of Care Note [code = 51682-5] Goal Plan of Care Note [code = 50572-6] Goal Plan of Care Note [code = 22772-2] Goal Plan of Care Note [code = 51601-6] Goal Plan of Care Note [code = 00128-7] Goal Plan of Care Note [code = 56823-4] Goal Plan of Care Note [code = 83675-7] Goal Plan of Care Note [code = 74430-9] Goal Plan of Care Note [code = 78065-4] Goal Plan of Care Note [code = 62419-0] Goal Plan of Care Note [code = 70783-6] Goal Plan of Care Note [code = 18759-2] Goal Plan of Care Note [code = 03439-3] Goal Plan of Care Note [code = 24378-7] Goal Plan of Care Note [code = 21245-5] Goal Plan of Care Note [code = 21107-5] Goal Plan of Care Note [code = 87527-4] Goal Plan of Care Note [code = 08942-0] Goal Plan of Care Note [code = 13710-8] Goal Plan of Care Note [code = 95759-2] Goal Plan of Care Note [code = 77290-2] Goal Plan of Care Note [code = 14670-0] Goal Plan of Care Note [code = 04245-3] Goal Plan of Care Note [code = 44548-8] Goal Plan of Care Note [code = 76236-0] Goal Plan of Care Note [code = 63338-7] Goal Plan of Care Note [code = 11015-6] Goal Plan of Care Note [code = 26151-9] Goal Plan of Care Note [code = 35530-0] Goal Plan of Care Note [code = 71130-6] Goal Plan of Care Note [code = 04361-5] Goal Plan of Care Note [code = 51251-9] Goal Plan of Care Note [code = 82130-2] Goal Plan of Care Note [code = 00587-3] Goal Plan of Care Note [code = 95955-8] Goal Plan of Care Note [code = 88115-0] Goal Plan of Care Note [code = 46725-1] Goal Plan of Care Note [code = 64197-7] Goal Plan of Care Note [code = 18294-1] Goal Plan of Care Note [code = 93771-8] Goal Plan of Care Note [code = 66281-8] Goal Plan of Care Note [code = 98385-9] Goal Plan of Care Note [code = 77693-4] Goal Plan of Care Note [code = 16831-5] Goal Plan of Care Note [code = 90146-1] Goal Plan of Care Note [code = 13956-7] Goal Plan of Care Note [code = 53662-5] Goal Plan of Care Note [code = 64354-6] Goal Plan of Care Note [code = 79231-2] Goal Plan of Care Note [code = 75101-9] Goal Plan of Care Note [code = 78786-7] Goal Plan of Care Note [code = 39215-7] Goal Plan of Care Note [code = 25226-3] Goal Plan of Care Note [code = 32448-0] Goal Plan of Care Note [code = 00275-4] Goal Plan of Care Note [code = 89813-0] Goal Plan of Care Note [code = 18867-8] Goal Plan of Care Note [code = 37176-4] Goal Plan of Care Note [code = 15693-4] Goal Plan of Care Note [code = 35199-3] Goal Plan of Care Note [code = 75923-6] Goal Plan of Care Note [code = 34049-3] Goal Plan of Care Note [code = 40584-6] Goal Plan of Care Note [code = 18728-4] Goal Plan of Care Note [code = 56746-6] Goal Plan of Care Note [code = 33771-6] Goal Plan of Care Note [code = 03789-9] Goal Plan of Care Note [code = 33377-4] Goal Plan of Care Note [code = 38642-5] Goal Plan of Care Note [code = 06958-6] Goal Plan of Care Note [code = 19974-4] Goal Plan of Care Note [code = 00304-9] Goal Plan of Care Note [code = 58677-5] Goal Plan of Care Note [code = 18835-4] Goal Plan of Care Note [code = 74946-7] Goal Plan of Care Note [code = 70707-7] Goal Plan of Care Note [code = 14822-9] Goal Plan of Care Note [code = 89351-3] Goal Plan of Care Note [code = 90417-5] Goal Plan of Care Note [code = 95191-9] Goal Plan of Care Note [code = 59513-4] Goal Plan of Care Note [code = 87682-7] Goal Plan of Care Note [code = 83132-0] Goal Plan of Care Note [code = 93062-0] Goal Plan of Care Note [code = 10376-4] Goal Plan of Care Note [code = 74050-0] Goal Plan of Care Note [code = 74717-9] Goal Plan of Care Note [code = 46930-4] Goal Plan of Care Note [code = 98944-7] Goal Plan of Care Note [code = 19898-7] Goal Plan of Care Note [code = 66715-2] Goal Plan of Care Note [code = 85635-1] Goal Plan of Care Note [code = 06455-5] Goal Plan of Care Note [code = 60236-4] Goal Plan of Care Note [code = 35512-7] Goal Plan of Care Note [code = 36517-5] Goal Plan of Care Note [code = 33408-0] Goal Plan of Care Note [code = 15573-3] Goal Plan of Care Note [code = 32494-5] Goal Plan of Care Note [code = 20679-1] Goal Plan of Care Note [code = 26871-2] Goal Plan of Care Note [code = 64877-7] Goal Plan of Care Note [code = 80865-9] Goal Plan of Care Note [code = 69275-4] Goal Plan of Care Note [code = 85716-7] Goal Plan of Care Note [code = 35662-4] Goal Plan of Care Note [code = 52570-3] Goal Plan of Care Note [code = 38708-2] Goal Plan of Care Note [code = 72840-0] Goal Plan of Care Note [code = 00187-0] Goal Plan of Care Note [code = 35979-5] Goal Plan of Care Note [code = 23753-6] Goal Plan of Care Note [code = 23994-4] Goal Plan of Care Note [code = 22607-5] Goal Plan of Care Note [code = 24023-3] Goal Plan of Care Note [code = 28773-5] Goal Plan of Care Note [code = 37583-6] Goal Plan of Care Note [code = 55951-5] Goal Plan of Care Note [code = 76083-9] Goal Plan of Care Note [code = 54746-8] Goal Plan of Care Note [code = 60619-1] Goal Plan of Care Note [code = 61312-4] Goal Plan of Care Note [code = 66980-5] Goal Plan of Care Note [code = 66531-5] Goal Plan of Care Note [code = 81130-6] Goal Plan of Care Note [code = 17439-6] Goal Plan of Care Note [code = 92638-2] Goal Plan of Care Note [code = 34984-3] Goal Plan of Care Note [code = 32433-3] Goal Plan of Care Note [code = 18691-4] Goal Plan of Care Note [code = 52575-4] Goal Plan of Care Note [code = 61746-2] Goal Plan of Care Note [code = 02255-4] Goal Plan of Care Note [code = 69568-8] Goal Plan of Care Note [code = 99126-2] Goal Plan of Care Note [code = 01498-6] Goal Plan of Care Note [code = 48207-9] Goal Plan of Care Note [code = 80267-8] Goal Plan of Care Note [code = 36455-6] Goal Plan of Care Note [code = 66509-7] Goal Plan of Care Note [code = 14130-8] Goal Plan of Care Note [code = 89646-9] Goal Plan of Care Note [code = 91392-5] Goal Plan of Care Note [code = 36897-5] Goal Plan of Care Note [code = 82408-0] Goal Plan of Care Note [code = 45395-7] Goal Plan of Care Note [code = 75088-9] Goal Plan of Care Note [code = 33221-5] Goal Plan of Care Note [code = 32471-1] Goal Plan of Care Note [code = 30981-3] Goal Plan of Care Note [code = 18127-7] Goal Plan of Care Note [code = 07592-2] Goal Plan of Care Note [code = 40422-7] Goal Plan of Care Note [code = 47597-5] Goal Plan of Care Note [code = 30965-3] Goal Plan of Care Note [code = 26418-1] Goal Plan of Care Note [code = 11162-2] Goal Plan of Care Note [code = 34356-0] Goal Plan of Care Note [code = 33182-0] Goal Plan of Care Note [code = 17869-4] Goal Plan of Care Note [code = 36727-2] Goal Plan of Care Note [code = 32764-7] Goal Plan of Care Note [code = 25469-0] Goal Plan of Care Note [code = 36379-8] Encounters Start End Encounter Admission Attending Care Care Encounter Source Date/Time Date/Time Type Type Clinicians Facility Department ID 2021-12-03 [facility] HEALTH [id number] [facility] 2022-09-23 Outpatient R IVANA LOYD [facility] [id number] Univers 10:10:00 10:10:00 [facility] 2022-09-16 2022-09-16 Outpatient SFA JAY [id number] [place] 14:20:52 14:20:52 80344 F [place] 2022-09-11 2022-09-11 Emergency X LEIGH [facility] ERT [id number] Univers 11:41:00 14:03:00 [facility] 2022-09-11 2022-09-11 Emergency Leigh [facility] 1.2.840.114 10 [id number] Univers 11:41:00 14:03:00 Mónica PANDE[facility].13.10 [facility] 4.2.7.2.686 [facility] [phone] [address] 2022-09-07 2022-09-07 Ancillary Barbara Salmeron [facility] 1.2.840 .114 [id number] Univers 14:30:00 15:08:12 Visit Ivana Loyd 350.1.13.10 it[place] [id number] [place] 179 [facility] 2022-09-06 2022-09-06 Outpatient R IVANA LOYD [facility] [id number] Univers 14:30:00 15:33:10 ity of [facility] 2022-09-06 2022-09-06 Ancillary Barbara Salmeron [facility] 1.2.840 .114 [id number] Univers 14:30:00 15:15:00 Visit Ivana Loyd 350.1.13.10 it[place] [id number] [place] N[place] 179 [facility] 2022-08-31 2022-08-31 Ancillary Barbara Salmeron [facility] 1.2.840 .114 [id number] Univers 13:45:00 14:24:26 Visit Jony Guevara 350.1.13.10 it[place] of [place] [id number] [place] d[place] N[place] 179 [facility] 2022-08-24 2022-08-24 Ancillary Barbara Salmeron [facility] 1.2.840 .114 [id number] Univers 13:45:00 15:50:29 Visit Jony Guevara 350.1.13.10 it[place] of [place] [id number] [place] N[place] 179 [facility] 2022-08-18 2022-08-18 Emergency X Ansley LINDER [facility] ERT [id number] Univers 17:12:00 18:16:00 ity of [facility] 2022-08-18 2022-08-18 Emergency Ansley Linder [facility] 1.2.840.114 10 [id number] Univers 17:12:00 18:16:00 Juju PANDEY 350.1.13.10 i ty of [place].2.[place] [id number] [facility] [address] 2022-08-12 2022-08-12 Outpatient R IVANA LOYD [facility] [id number] Univers 11:30:00 11:30:00 ity of [facility] 2022-08-10 2022-08-10 Outpatient R ZAN [facility] [id number] Univers 11:00:00 11:00:00 FLAKO ity [facility] 2022 2022 Outpatient R GALILEO [facility] [id number] Univers 11:00:00 11:36:02 JONY itmaurisio [facility] 2022 2022 Ancillary Daria Pantoja [facility] 1 .2.840.114 [id number] Univers 11:00:00 11:36:02 Visit Jony Guevara 350.1.13.10 ity of [place].2.[place] [facility] [id number] [place] dical [facility] 179 [facility] 2022-07-08 2022-07-08 Outpatient R IVANA LOYD [facility] [id number] Univers 10:00:00 10:00:00 ity of [facility] 2022-06-30 2022-06-30 Patient Doctor NIDA 1.2.840.114 [id number] Univers 00:00:00 00:00:00 Secure Msg Unassigned, DIPESH 350.1.13.10 ity of [place] [facility] 4.2.7.2.686 Derik as [phone] [facility] [address] 2022-06-22 2022-06-22 Outpatient R IVANA LOYD [facility] SOR [id number] Univers 05:22:00 10:50:00 ity of [facility] 2022-06-22 2022-06-22 Hospital Ivana Loyd [facility] 1.2.840.114 [id number] Univers 05:22:00 10:50:00 Encounter HEALTH 350.1.13.10 [place] of [place] [phone] [facility] [address] ([facility]) 2022-06-22 2022-06-22 [facility] 1.2.784.071 [id number] Univers 07:05:00 09:36:00 HEALTH 350.1.13.10 it y of [place].2.686 [place] [facility] [id number] [facility] [address] ([facility]) 2022-06-22 2022-06-22 Orders Doctor NIDA 1.2.840.114 [id number] Univers 00:00:00 00:00:00 Only Unassigned, DIPESH 350.1.13.10 ity of [place] [facility] 4.2.7.2.686 Derik as [id number] [facility] [address] 2022-06-16 2022-06-16 Pre-Anesth Call, [facility] 1.2.840.114 1 [id number] Univers 16:45:00 16:50:00 esia [facility] Phone HEALTH 350.1.13.10 ity of [place] 4.2.7.2.686 [place] [phone] [facility] [address] ([facility]) 2022-06-06 2022-06-06 [facility] [id number] Univers 13:30:00 20:31:00 CELSA ity of [facility] 2022-06-06 2022-06-06 [facility] 1.2.929.898 [id number] Univers 13:30:00 20:31:00 Celsa PANDEY 350.1.13.10 i ty of [place] 4.2.7.2.686 [facility] [id number] [facility] [address] 2022-06-06 2022-06-06 Orders Doctor NIDA 1.2.840.114 [id number] Univers 00:00:00 00:00:00 Only Unassigned, DIPESH 350.1.13.10 ity of [place] [facility] 4.2.7.2.686 Derik as [phone] [facility] [address] [place] 2022-06-01 2022-06-01 Patient SagrarioIvana [facility] 1.2.949.905 [id number] Univers 00:00:00 00:00:00 Secure Msg SPECIALTY 350.1.13.10 ity of [place] C[place] AT [phone] Ky tiffany GIL [address] [facility] 2022-05-15 2022-05-15 Abstract Alek Loyde [facility] 1.2.840.114 [id number] Univers 00:00:00 00:00:00 SPECIALTY 350.1.13.10 ity of CARE 4.2.7.2.686 [facility] CENTER AT [phone] [place] tiffany GIL [address] [facility] 2022-05-09 2022-05-09 Telephone Sagrario Ivana [facility] 1.2.840.114 10 [id number] Univers 00:00:00 00:00:00 SPECIALTY 350.1.13.10 ity of CARE 4.2.7.2.686 [facility] CENTER AT [phone] [place] tiffany GIL [address] [place] [address] 2022-05-06 2022-05-06 Outpatient R IVANA LOYD [facility] [id number] Univers 13:41:47 23:59:00 ity of [facility] 2022-05-06 2022-05-06 Hospital Ivana Loyd [facility] 1.2.840.114 [id number] Univers 13:41:47 23:59:00 Encounter [place] 350.1.13.10 ity of [place] 4.2.7.2.686 [facility] [id number] [facility] [address] [place] 2022-05-06 2022-05-06 Orders Doctor NIDA 1.2.840.114 [id number] Univers 00:00:00 00:00:00 Only Unassigned, DIPESH 350.1.13.10 ity of [place] [facility] 4.2.7.2.686 [facility] [id number] [facility] [address] 2022-04-29 2022-04-29 [facility] 1.2.840.114 [id number] Univers 12:05:00 23:59:00 Encounter HEALTH 350.1.13.10 ity of [place] 4.2.7.2.686 [facility] [id number] [facility] [address] [place] OFFICE BUILDING 2022-04-29 2022-04-29 [facility] [id number] Univers 11:20:00 11:20:00 ity [facility] 2022-04-22 2022-04-22 Outpatient R NATASHA [facility] [id number] Univers 13:00:00 15:07:25 CHIDI itmaurisio [facility] 2022-04-22 2022-04-22 Ancillary Barbara Salmeron [facility] 1.2.840 .114 [id number] [facility] 13:00:00 15:07:25 Visit Natasha Chidi PANDEY 350.1.13.10 ity of [place] [phone] [place] dical NAL 179 [facility] 2022-04-20 2022-04-20 Ancillary Rojelio Salmeron [facility] 1.2.840. 114 [id number] [facility] 13:00:00 13:45:00 Visit Chidi Kaur 350.1.13.10 ity of [place] [id number] [place] dical NAL 179 [facility] 2022-04-19 2022-04-[address] [facility] [id number]- 202 [place] 10:46:57 10:46:57 02218 F [place] 2022-04-19 2022-04-19 Outpatient [id number]- [id number] c1 b4hd34-s 00:00:00 00:00:00 Visit bdb3-4c67 db3-4c67-a -d867-713 994-002eb5 jd6h76i54 e11f32 2022-04-15 2022-04-15 Ancillary Barbara Salmeron [facility] 1.2.840 .114 [id number] [facility] 11:00:00 11:45:49 Visit Kaur Chidi PANDEY 350.1.13.10 ity [place] [id number] [place] dical NAL 179 [facility] 2022-04-07 2022-04-07 Ancillary Barbara Salmeron [facility] 1.2.840 .114 [id number] [facility] 10:15:00 11:00:00 Visit Chidi Kaur 350.1.13.10 ity of [place] 4.[place] [id number] [place] dical NAL 179 [facility] 2022-04-06 2022-04-06 Ancillary Barbara Salmeron [facility] 1.2.840 .114 [id number] Univers 11:00:00 11:45:00 Visit KaurChidi hill 350.1.13.10 ity of [place].2.[place] [id number] [place] dical NAL 179 [facility] 2022-03-24 2022-03-24 Ancillary Barbara Salmeron [facility] 1.2.840 .114 [id number] Univers 13:45:00 14:30:00 Visit Chidi Kaur 350.1.13.10 ity of [place] [id number] [place] dical NAL 179 [facility] 2022-03-22 2022-03-22 Ancillary Barbara Salmeron [facility] 1.2.840 .114 [id number] Univers 13:00:00 13:54:38 Visit Chidi Kaur 350.1.13.10 [facility] 4.2.7.2.[place] [phone] [place] dical NAL 179 [facility] 2022-03-19 2022-03-19 Outpatient R EDUAR DEE [facility] [id number] [facility] 20:00:00 20:00:00 EDUAR DEE ity [facility] 2022-03-17 2022-03-17 Outpatient [id number]- [id number] d3 66994e-j 00:00:00 00:00:00 Visit l30k-8g1w 41e-4d7b-9 -96cc-ca0 6cc-rd7836 91707qze6 80bab8 2022-03-16 2022-03-16 Ancillary Rojelio Salmeron [facility] 1.2.840. 114 [id number] Univers 08:45:00 09:30:00 Visit Chidi Kaur 350.1.13.10 ity of [place].2.[place] [id number] [place] dical NAL 179 [facility] 2022-03-08 2022-03-08 Ancillary Barbara Salmeron [facility] 1.2.840 .114 [id number] Univers 10:15:00 10:44:48 Visit Chidi Kaur 350.1.13.10 ity [facility] 4.2.7.2.686 [place] [id number] [place] dical NAL 179 [facility] 2022-03-08 2022-03-08 Outpatient R KAUR [facility] [id number] Univers 10:15:00 10:44:48 CHIDI itmaurisio [facility] 2022-03-08 2022-03-08 Telephone Jaron [facility] 1.2.142.408 [id number] [facility] 00:00:00 00:00:00 Barbara Ansley PANDEY 350.1.13.10 ity [facility] 4.2.7.2.686 [place] [id number] [place] dical NAL 179 [facility] 2022-02-28 2022-02-28 Outpatient R NATASHA [facility] [id number] Univers 15:00:00 16:17:36 CHIDI miller [facility] 2022-02-28 2022-02-28 Ancillary Jeannette Alvarez [facility] 1.2.840. 114 [id number] Univers 15:00:00 16:17:36 Visit Chidi Kaur 350.1.13.10 ity of [facility] 4.2.7.2.686 [place] [id number] [place] dical NAL 179 [facility] 2022-02-21 2022-02-21 Telephone Ivana Loyd [facility] 1.2.840.114 [id number] Univers 00:00:00 00:00:00 SPECIALTY 350.1.13.10 ity of [place].2.[place] C[place] AT [id number] Ky dical VICTORY 198 [facility] 2022-02-18 2022-02-18 Patient Doctor NIDA 1.2.840.114 [id number] Univers 00:00:00 00:00:00 Secure Msg Unassigned, DIPESH 350.1.13.10 ity of [facility] 4.2.7.2.686 Derik [id number] [facility] [address] [place] 2022-02-16 2022-02-16 Outpatient IVANA SHEFFIELD [facility] [id number] Univers 09:00:00 09:00:00 ity of [facility] 2022-02-14 2022-02-14 Outpatient [facility] [id number]- [id number] [place] 13:33:16 13:33:16 10012 F [place] 2022-02-14 2022-02-14 Outpatient [id number] [id number] 00:00:00 00:00:00 Visit 505c-4a26 05c-4a26-a -s4b2-826 3h4-6177nf 4wb496z0r 101f5c 2022-02-12 2022-02-12 Emergency X [facility] ERT [id number] Univers 16:23:00 18:38:00 EDUARDO hubbardy [facility] 2022-02-12 2022-02-12 Emergency [facility] 1.2.743.368 [id number] Univers 16:23:00 18:38:00 Eduardo PANDEY 350.1.13.10 ity [facility] 4.2.7.2.686 [facility] [id number] [facility] [address] [place] 2022-01-05 2022-01-05 Outpatient [facility] [id number] [place] 15:08:53 15:08:53 34791 F [place] 2022-01-05 2022-01-05 Outpatient [id number]- [id number] 8f 187rq9-y 00:00:00 00:00:00 Visit vv62-6z8s y44-9f4m-j -rc18-3bk w19-8vjwm0 bi3z1751z o9795r 2021-12-30 2021-12-30 Outpatient [facility] [id number] [place] 15:08:24 15:08:24 15082 F [place] 2021-12-30 2021-12-30 Outpatient [id number]- [id number] 2boli6-4 00:00:00 00:00:00 Visit 92i2-48f6 8s1-78t8-w -afa0-f87 fa0-f87a04 k8587u5x6 77f6f4 2021-12-16 2021-12-16 Outpatient 63emp7u5- [id number] ccg1w2-1 00:00:00 00:00:00 Visit 8746-4a14 746-4a14-a -u077-324 386-63178s 14zg2mn7p e1cb5a 2021-12-03 2021-12-03 [facility] [id number] Univers 14:48:43 23:59:00 YULIANA miller [facility] 2021-12-03 2021-12-03 [facility] 1.2.840.114 [id number] Univers 14:48:43 23:59:00 Encounter Yuliana Panchal [place] 350.1.13.10 angela [facility] 4.2.7.2.686 [facility] [phone] [place]3467 [place] 2021-12-03 2021-12-03 Outpatient c3qp7s76- [id number] f7 zv3a48-s 00:00:00 00:00:00 Visit y39v-8v4n 56f-4c0c-8 -5b95-3m5 r50-2k4fm4 pc3wda330 tco940 2021-11-10 2021-11-10 Outpatient vw6t520d- [id number] fc 1w416f-2 00:00:00 00:00:00 Visit 24j2-977v 8x4-931n-0 -6f0k-md9 n0h-dq6s3i g2qqys5n7 bbb8a1 2021-10-28 2021-10-28 Outpatient [id number]- [id number] 2791s4-6 00:00:00 00:00:00 Visit 3ub6-1t82 ee4-4f71-8 -64v2-b65 6t7-n39jb0 sa4k31gwc f31acb 2021-10-02 2021-10-02 Outpatient o6rl6p61- [id number] d9 qh3n59-1 00:00:00 00:00:00 Visit 56n7-25vs 1l7-17nc-m -u658-b00 395-c129ce 9uts175w8 a638b5 2021-07-30 2021-07-30 Outpatient R RADIOLOGY [facility] [id number] Univers 10:07:07 23:59:00 ity of [facility] 2021-07-30 2021-07-30 Hospital Radiology [facility] 1.2.840.114 [id number] Univers 10:07:07 23:59:00 Encounter [place] 350.1.13.10 ity of [place].7.2.686 [place] [facility] [id number] [facility] [address] [place] 2021-07-30 2021-07-30 Orders Doctor NIDA 1.2.840.114 [id number] Univers 00:00:00 00:00:00 Only Unassigned, DIPESH 350.1.13.10 ity of [place] [facility] 4.2.7.2.686 Derik as [phone] [facility] [address] [place] 2021 2021 Orders Doctor NIDA 1.2.840.114 [id number] Univers 00:00:00 00:00:00 Only Unassigned, DIPESH 350.1.13.10 ity of [place] [facility] 4.2.7.2.686 Derik as [id number] [address] Results Test Description Test Time Test Comments Results Result Comments Source MAGNESIUM 2022-09-11 17:37:07 Test Item Value Reference Range Interpretation Comme nts MAGNESIUM (test code = 9467758029) 1.9 mg/dL 1.7-2.4 Lab Interpretation (test code = 67609-8) [facility] (13660)2022-09-11 17:36:47 Test Item Value Reference Range Interpretation Comments NA (test code = 140 mmol/L 135-145 0579607285) K (test code = 4.0 mmol/L 3.5-5.0 0539001605) CL (test code = 110 mmol/L 98-108 H 3193611165) CO2 TOTAL (test code = 22 mmol/L 23-31 L 6006656164) AGAP (test code = 8 2-16 3085045571) BUN (test code = 8 mg/dL 7-23 1498634089) GLUCOSE (test code = 136 mg/dL 70-110 H 3049533228) CREATININE (test code = 0.62 mg/dL 0.50-1.04 5521307335) TOTAL BILI (test code = 0.3 mg/dL 0.1-1.7 3647980101) CALCIUM (test code = 9.2 mg/dL 8.6-10.6 7650209253) T PROTEIN (test code = 6.5 g/dL 6.3-8.2 1556049969) ALBUMIN (test code = 3.8 g/dL 3.5-5.0 1205293683) ALK PHOS (test code = 63 U/L 34-122 5695924142) ALTv (test code = 36 U/L 5-35 H 1742-6) AST(SGOT) (test code = 29 U/L 13-40 7516800612) eGFR (test code = 105.6 mL/min/1.73m2 1107528165) OCTAVIO (test code = OCTAVIO) Association of Glomerular Filtration Rate (GFR) and Staging of Kidney Disease* + --+ --+ ------+| GFR (mL/min/1.73 m2) ?| With Kidney Damage ?| ?Without Kidney Damage+ --------+ --------+ +| ?>90 ?| ?Stage one ?| ? Normal ?+ ---+ ---+ -------+| ?60-89 ?| ?Stage two ?| ? Decreased GFR ? + --+ --+ ------+| ?30-59 ?| ?Stage three ?| ? Stage three ? + --+ --+ ------+| ?15-29 ?| ?Stage four ? | ? Stage four ?+ ---+ ---+ -------+| ?<15 (or dialysis) ? ?| ?Stage five ? | ? Stage five ?+ ---+ ---+ -------+ *Each stage assumes the associated GFR level has been in effect for at least three months. ?Stages 1 to 5, with or without kidney disease, indicate chronic kidney disease. Notes: Determination of stages one and two (with eGFR >59mL/min/1.73 m2) requires estimation of kidney damage for at least three months as defined by structural or functional abnormalities of the kidney, manifested by either:Pathological abnormalities or Markers of kidney damage (including abnormalities in the composition of the blood or urine or abnormalities in imaging tests). Lab Interpretation Abnormal (test code = 90013-2) [facility] 17:36:26 Test Item Value Reference Range Interpretation Comments LIPASE (test code = 3936228819) 121 U/L 0-220 Lab Interpretation (test code = Normal 90028-1) [facility] WITH [id number] 17:25:04 Test Item Value Reference Range Interpretation Comments WBC (test code = 8.52 See_Comment [Automated message] 6673-2) The system [employer] generated this result transmitted ref erence range: 4.30 - 1 1.10 10*3/?L. The re ference range was not u sed to interpret this result as normal/abnor mal. RBC (test code = 4.16 See_Comment [Automated message] 049-8) The system [employer] generated this result transmitted ref erence range: 3.93 - 5 .25 10*6/?L. The re ference range was not u sed to interpret this result as normal/abnor mal. HGB (test code = 12.9 g/dL 11.6-15.0 718-7) HCT (test code = 36.9 % 35.7-45.2 4544-3) MCV (test code = 88.7 fL 80.6-95.5 787-2) MCH (test code = 31.0 pg 25.9-32.8 785-6) MCHC (test code = 35.0 g/dL 31.6-35.1 786-4) RDW-SD (test code 41.3 fL 39.0-49.9 = 57804-2) RDW-CV (test code 12.8 % 12.0-15.5 = 788-0) PLT (test code = 239 See_Comment [Automated message] 313-3) The system [employer] generated this result transmitted ref erence range: 166 - 35 8 10*3/?L. The re ference range was not u sed to interpret this result as normal/abnor mal. MPV (test code = 10.7 fL 9.5-12.9 13751-0) NRBC/100 WBC (test 0.0 See_Comment [Automat ed message] code = 9862690954) The syste m which generated this result transmitted ref erence range: 0.0 - 10 .0 /100 WBCs. The refer ence range was not u sed to interpret this result as normal/abnor mal. NRBC x10^3 (test See_Comment [Automated message] code = 3963262887) The syste m which generated this result transmitted ref erence range: 10*3/?L. The reference range was not used to interpr et this result as normal/abnormal . GRAN MAT (NEUT) % 55.1 % (test code = 770-8) IMM GRAN % (test 0.40 % code = 6059121118) LYMPH % (test code 34.4 % = 736-9) MONO % (test code 5.8 % = 5905-5) EOS % (test code = 3.9 % 713-8) BASO % (test code 0.4 % = 706-2) GRAN MAT 4.71 10*3/uL 1.88-7.09 x10^3(ANC) (test code = 9961329948) IMM GRAN x10^3 0.03 10*3/uL 0.00-0.06 (test code = 2858057437) LYMPH x10^3 (test 2.93 10*3/uL 1.32-3.29 code = 731-0) MONO x10^3 (test 0.49 10*3/uL 0.33-0.92 code = 742-7) EOS x10^3 (test 0.33 10*3/uL 0.03-0.39 code = 711-2) BASO x10^3 (test 0.03 10*3/uL 0.01-0.07 code = 704-7) [facility] [id number] 16:57:00 Test Item Value Reference Range Interpretation Comments POCT PREG (test code = 1605) Negative On board controls acceptable with C Yes Line (test code = 3574) POCT PREG LOT # (test code = 3575) [id number] POCT PREG TEST DATE (test 91533613 code = 3576) Lab Interpretation (test code = Normal 94043-9) [facility] [id number] 10:45:00 Test Item Value Reference Range Interpretation Comments POCT PREG (test code = 1605) Negative On board controls acceptable with C Yes Line (test code = 3574) POCT PREG LOT # (test code = 3575) POCT PREG TEST DATE (test code = 3576) [facility] [id number] 10:45:00 Test Item Value Reference Range Interpretation Comments POCT PREG (test code = 1605) Negative On board controls acceptable with C Yes Line (test code = 3574) POCT PREG LOT # (test code = 3575) POCT PREG TEST DATE (test code = 3576) [facility]. METABOLIC PANEL (51468)2022-06-07 00:56:53 Test Item Value Reference Range Interpretation Comments NA (test code = 136 mmol/L 135-145 7413421488) K (test code = 4.4 mmol/L 3.5-5.0 9860879813) CL (test code = 107 mmol/L 98-108 8206827581) CO2 TOTAL (test code = 22 mmol/L 23-31 L 2327448083) AGAP (test code = 7 2-16 1699386592) BUN (test code = 9 mg/dL 7-23 6653349039) GLUCOSE (test code = 76 mg/dL 70-110 1126155229) CREATININE (test code = 0.60 mg/dL 0.50-1.04 1406089251) TOTAL BILI (test code = 0.3 mg/dL 0.1-1.1 9819960128) CALCIUM (test code = 8.4 mg/dL 8.6-10.6 L 3806781147) T PROTEIN (test code = 6.8 g/dL 6.3-8.2 1645877339) ALBUMIN (test code = 4.0 g/dL 3.5-5.0 3105533074) ALK PHOS (test code = 58 U/L 34-122 8006858663) ALTv (test code = 25 U/L 5-35 1742-6) AST(SGOT) (test code = 24 U/L 13-40 0359180741) eGFR (test code = 110.2 mL/min/1.73m2 2532559436) OCTAVIO (test code = OCTAVIO) Association of Glomerular Filtration Rate (GFR) and Staging of Kidney Disease* + --+ --+ ------+| GFR (mL/min/1.73 m2) ?| With Kidney Damage ?| ?Without Kidney Damage+ --------+ --------+ +| ?>90 ?| ?Stage one ?| ? Normal ?+ ---+ ---+ -------+| ?60-89 ?| ?Stage two ?| ? Decreased GFR ? + --+ --+ ------+| ?30-59 ?| ?Stage three ?| ? Stage three ? + --+ --+ ------+| ?15-29 ?| ?Stage four ? | ? Stage four ?+ ---+ ---+ -------+| ?<15 (or dialysis) ? ?| ?Stage five ? | ? Stage five ?+ ---+ ---+ -------+ *Each stage assumes the associated GFR level has been in effect for at least three months. ?Stages 1 to 5, with or without kidney disease, indicate chronic kidney disease. Notes: Determination of stages one and two (with eGFR >59mL/min/1.73 m2) requires estimation of kidney damage for at least three months as defined by structural or functional abnormalities of the kidney, manifested by either:Pathological abnormalities or Markers of kidney damage (including abnormalities in the composition of the blood or urine or abnormalities in imaging tests). Lab Interpretation Abnormal (test code = 83698-9) [facility] Test Item Value Reference Range Interpretation Comments LIPASE (test code = 0956237761) 117 U/L 0-220 Lab Interpretation (test code = Normal 78302-6) [facility] [id number] 22:27:50 Test Item Value Reference Range Interpretation Comments WBC (test code = 7.95 See_Comment [Automated message] 5290-2) The system [employer] generated this result transmitted ref erence range: 4.30 - 1 1.10 10*3/?L. The re ference range was not u sed to interpret this result as normal/abnor mal. RBC (test code = 4.75 See_Comment [Automated message] 789-8) The system [employer] generated this result transmitted ref erence range: 3.93 - 5 .25 10*6/?L. The re ference range was not u sed to interpret this result as normal/abnor mal. HGB (test code = 14.2 g/dL 11.6-15.0 718-7) HCT (test code = 41.7 % 35.7-45.2 4544-3) MCV (test code = 87.8 fL 80.6-95.5 787-2) MCH (test code = 29.9 pg 25.9-32.8 785-6) MCHC (test code = 34.1 g/dL 31.6-35.1 786-4) RDW-SD (test code 43.0 fL 39.0-49.9 = 82587-5) RDW-CV (test code 13.3 % 12.0-15.5 = 788-0) PLT (test code = 256 See_Comment [Automated message] 777-3) The system [employer] generated this result transmitted ref erence range: 166 - 35 8 10*3/?L. The re ference range was not u sed to interpret this result as normal/abnor mal. MPV (test code = 11.0 fL 9.5-12.9 87027-1) NRBC/100 WBC (test 0.0 See_Comment [Automat ed message] code = [id number]) The syste [employer] which generated this result transmitted ref erence range: 0.0 - 10 .0 /100 WBCs. The refer ence range was not u sed to interpret this result as normal/abnor mal. NRBC x10^3 (test See_Comment [Automated message] code = 1703184022) The syste m which generated this result transmitted ref erence range: 10*3/?L. The reference range was not used to interpr et this result as normal/abnormal . GRAN MAT (NEUT) % 49.1 % (test code = 770-8) IMM GRAN % (test 0.40 % code = 4499658625) LYMPH % (test code 39.2 % = 736-9) MONO % (test code 7.4 % = 5905-5) EOS % (test code = 3.6 % 713-8) BASO % (test code 0.3 % = 706-2) GRAN MAT 3.90 10*3/uL 1.88-7.09 x10^3(ANC) (test code = 3117500879) IMM GRAN x10^3 0.03 10*3/uL 0.00-0.06 (test code = 0374526015) LYMPH x10^3 (test 3.12 10*3/uL 1.32-3.29 code = 731-0) MONO x10^3 (test 0.59 10*3/uL 0.33-0.92 code = 742-7) EOS x10^3 (test 0.29 10*3/uL 0.03-0.39 code = 711-2) BASO x10^3 (test 0.01-0.07 code = 704-7) [id number] Test Item Value Reference Range Interpretation Comments POCT PREG (test code = 1605) negative On board controls acceptable with C present Line (test code = 3574) POCT PREG LOT # (test code = 3575) [id number] POCT PREG TEST DATE (test [id number] code = 3576) Lab Interpretation (test code = Normal 78884-4) [facility], THINPREP, [id number] 10:29:56 Test Item Value Reference Range Interpretation Comments SOURCE: (test Cervical/Endo code = 8001) cervical SLIDES: (test 1 code = 8011) LMP: (test code = 06/03/2021 8021) SPECIMEN (NOTE) Satisfactory f or ADEQUACY: (test evaluation. code = 88212) Endocervical cells/transform ation zone component present. INTERPRETATION: NILM/NO (test code = EPITH. --------- 58724) ABNORMALITY;S -------- EE BELOW NEGATIVE FO R INTRAEPITHELIAL LESION OR MALIGNANCY ( NILM) --------- --------- --------- - OTHER COMMENTS: (NOTE) Shift in mejia ra (test code = suggestive of b acterial 8081) vaginosis. COMPUTER PUBLISHER: Kait (test code = JOSUE Abdul(ASCP) 8101) IAC QC TECHNOLOGIST: [facility] (test code = JOSUE Castro( 8111) CP) IAC LOCATION: (test (NOTE) Specimens pr ocessed and code = 33587) [facility] [address] [place] [address], , CLIA: [id number] CPT: (test code = (NOTE) 27286 UNLE SS OTHERWISE 8140) INDICATED, COMP UTER AIDED AND CYTOTECHNOLOGIS T SCREENING PERFO RMED. The Pap test is a s creening test with an in herent, but low probabi lity of error. Your pat ient should be remin ded to consult you imm ediately if she experien froylan any suspicious sign s or symptoms, regar dless of her Pap test re sult. An alternate repor t format containing imag es or consolidated pr ior Pap history is aarti art as applicable. HPV HIGH RISK WITH GENOTYPE, [id number] 10:20:12 Test Item Value Reference Range Interpretation Comments HPV HIGH RISK INTERP NEGATIVE NEGATIVE (test code = 95059) HPV 16 (test code = NEGATIVE 47100) HPV 18 (test code = NEGATIVE 72994) HPV, HR, OTHER NEGATIVE Testing meth odology is GENOTYPES (test code real-ti me PCR utilizing = 46590) hydrolysis prob es with the Tutellusas 4800 system. The julee t individually de tects genotypes 16 an d 18, as well as the oth er 12 high risk types (31,33,35,39,45 ,51,52,56 ,58,59,66,68). The expected result is negative. A ne gative result does not rule out the presence of HPV not included in the genotype set, a low leve l of infection or sp ecimen sampling error. UNLESS OTHERWISE INDIC ATED, ALL TESTING PERFORM ED [facility], [facility] [address] [place] [address] LABORATORY DIRE CTOR: WILDA RUBIN M.D. CLIA NUMBER [id number] [facility] [place] [id number] CT/NG, TMA, [id number] 06:45:04 Test Item Value Reference Range Interpretation Comments GONORRHEA, TMA NEGATIVE NEGATIVE Assay method ology is (test code = nucleic acid am plification 14031) by transcriptio n mediated amplification ( TMA) utilizing the A ptima Combo 2 Assay. CHLAMYDIA, TMA NEGATIVE NEGATIVE Assay method ology is (test code = nucleic acid am plification 60305) by transcriptio n mediated amplification ( TMA) utilizing the A ptima Combo 2 Assay. RPR REFLEX TO T. PALLIDUM - [id number] 00:00:16 Test Item Value Reference Range Interpretation Comments RPR (test code = 04374) NON-REACTIVE NON-REACTIVE RPR TITER (test code = 3500) NOT INDIC. TITER NOT INDIC. GC AND CHLAMYDIA AMPLIFIED, [id number] 00:00:00 Test Item Value Reference Range Interpretation Comments GONORRHEA, TMA (test code = 26109) NEGATIVE CHLAMYDIA, TMA (test code = 98253) NEGATIVE PAP TEST, THINPREP, [id number] 00:00:00 Test Item Value Reference Range Interpretation Comments SOURCE: (test code = Cervical/Endocervical 8001) SLIDES: (test code = 1 8011) LMP: (test code = 8021) 06/03/2021 SPECIMEN ADEQUACY: (test (NOTE) code = 31743) INTERPRETATION: (test NILM/NO EPITH. code = 48349) ABNORMALITY;SEE BELOW OTHER COMMENTS: (test (NOTE) code = 8081) COMPUTER PUBLISHER: (test Kait code = 8101) JOSUE Abdul(ASCP)IAC QC TECHNOLOGIST: (test Malek code = 8111) JOSUE Castro(ASCP) IAC LOCATION: (test code = (NOTE) 22517) CPT: (test code = 8140) (NOTE) RPR REFLEX TO [id number] 00:00:00 Test Item Value Reference Range Interpretation Comments RPR (test code = 60304) NON-REACTIVE RPR TITER (test code = 3500) NOT INDIC. TITER HPV HIGH RISK WITH GENOTYPE, [id number] 00:00:00 Test Item Value Reference Range Interpretation Comments HPV HIGH RISK INTERP (test code = NEGATIVE 17680) HPV 16 (test code = 96273) NEGATIVE HPV 18 (test code = 24923) NEGATIVE HPV, HR, OTHER GENOTYPES (test code NEGATIVE = 40839) GC AND CHLAMYDIA AMPLIFIED, [id number] 00:00:00 Test Item Value Reference Range Interpretation Comments GONORRHEA, TMA (test code = 37599) NEGATIVE CHLAMYDIA, TMA (test code = 56843) NEGATIVE GC AND CHLAMYDIA AMPLIFIED, [id number] 00:00:00 Test Item Value Reference Range Interpretation Comments GONORRHEA, TMA (test code = 19560) NEGATIVE CHLAMYDIA, TMA (test code = 13852) NEGATIVE PAP TEST, THINPREP, [id number] 00:00:00 Test Item Value Reference Range Interpretation Comments SOURCE: (test code = Cervical/Endocervical 8001) SLIDES: (test code = 1 8011) LMP: (test code = 8021) 06/03/2021 SPECIMEN ADEQUACY: (test (NOTE) code = 59767) INTERPRETATION: (test NILM/NO EPITH. code = 44794) ABNORMALITY;SEE BELOW OTHER COMMENTS: (test (NOTE) code = 8081) COMPUTER PUBLISHER: (test Kait code = 8101) JOSUE Abdul(ASCP)IAC QC TECHNOLOGIST: (test Malek code = 8111) JOSUE Castro(ASCP) IAC LOCATION: (test code = (NOTE) 74122) CPT: (test code = 8140) (NOTE) PAP TEST, THINPREP, [id number] 00:00:00 Test Item Value Reference Range Interpretation Comments SOURCE: (test code = Cervical/Endocervical 8001) SLIDES: (test code = 1 8011) LMP: (test code = 8021) 06/03/2021 SPECIMEN ADEQUACY: (test (NOTE) code = 59036) INTERPRETATION: (test NILM/NO EPITH. code = 65366) ABNORMALITY;SEE BELOW OTHER COMMENTS: (test (NOTE) code = 8081) COMPUTER PUBLISHER: (test Kait code = 8101) JOSUE Abdul(ASCP)IAC QC TECHNOLOGIST: (test Malek code = 8111) JOSUE Castro(ASCP) IAC LOCATION: (test code = (NOTE) 43115) CPT: (test code = 8140) (NOTE) RPR REFLEX TO [id number] 00:00:00 Test Item Value Reference Range Interpretation Comments RPR (test code = 16048) NON-REACTIVE RPR TITER (test code = 3500) NOT INDIC. TITER HPV HIGH RISK WITH GENOTYPE, [id number] 00:00:00 Test Item Value Reference Range Interpretation Comments HPV HIGH RISK INTERP (test code = NEGATIVE 29027) HPV 16 (test code = 22762) NEGATIVE HPV 18 (test code = 48063) NEGATIVE HPV, HR, OTHER GENOTYPES (test code NEGATIVE = 36092) RPR REFLEX TO [id number] 00:00:00 Test Item Value Reference Range Interpretation Comments RPR (test code = 24134) NON-REACTIVE RPR TITER (test code = 3500) NOT INDIC. TITER HPV HIGH RISK WITH GENOTYPE, [id number] 00:00:00 Test Item Value Reference Range Interpretation Comments HPV HIGH RISK INTERP (test code = NEGATIVE 06272) HPV 16 (test code = 57851) NEGATIVE HPV 18 (test code = 22916) NEGATIVE HPV, HR, OTHER GENOTYPES (test code NEGATIVE = 20772) GC AND CHLAMYDIA AMPLIFIED, [id number] 00:00:00 Test Item Value Reference Range Interpretation Comments GONORRHEA, TMA (test code = 80015) NEGATIVE CHLAMYDIA, TMA (test code = 54625) NEGATIVE GC AND CHLAMYDIA AMPLIFIED, [id number] 00:00:00 Test Item Value Reference Range Interpretation Comments GONORRHEA, TMA (test code = 90711) NEGATIVE CHLAMYDIA, TMA (test code = 79633) NEGATIVE PAP TEST, THINPREP, [id number] 00:00:00 Test Item Value Reference Range Interpretation Comments SOURCE: (test code = Cervical/Endocervical 8001) SLIDES: (test code = 1 8011) LMP: (test code = 8021) 06/03/2021 SPECIMEN ADEQUACY: (test (NOTE) code = 42961) INTERPRETATION: (test NILM/NO EPITH. code = 08871) ABNORMALITY;SEE BELOW OTHER COMMENTS: (test (NOTE) code = 8081) COMPUTER PUBLISHER: (test Kait code = 8101) JOSUE Abdul(ASCP)IAC QC TECHNOLOGIST: (test Malek code = 8111) JOSUE Castro(ASCP) IAC LOCATION: (test code = (NOTE) 17239) CPT: (test code = 8140) (NOTE) PAP TEST, THINPREP, [id number] 00:00:00 Test Item Value Reference Range Interpretation Comments SOURCE: (test code = Cervical/Endocervical 8001) SLIDES: (test code = 1 8011) LMP: (test code = 8021) 06/03/2021 SPECIMEN ADEQUACY: (test (NOTE) code = 33360) INTERPRETATION: (test NILM/NO EPITH. code = 88947) ABNORMALITY;SEE BELOW OTHER COMMENTS: (test (NOTE) code = 8081) COMPUTER PUBLISHER: (test Kait code = 8101) JOSUE Abdul(ASCP)IAC QC TECHNOLOGIST: (test Malek code = 8111) JOSUE Castro(ASCP) IAC LOCATION: (test code = (NOTE) 91911) CPT: (test code = 8140) (NOTE) RPR REFLEX TO [id number] 00:00:00 Test Item Value Reference Range Interpretation Comments RPR (test code = 81528) NON-REACTIVE RPR TITER (test code = 3500) NOT INDIC. TITER HPV HIGH RISK WITH GENOTYPE, [id number] 00:00:00 Test Item Value Reference Range Interpretation Comments HPV HIGH RISK INTERP (test code = NEGATIVE 54388) HPV 16 (test code = 06809) NEGATIVE HPV 18 (test code = 30941) NEGATIVE HPV, HR, OTHER GENOTYPES (test code NEGATIVE = 60073) RPR REFLEX TO [id number] 00:00:00 Test Item Value Reference Range Interpretation Comments RPR (test code = 55406) NON-REACTIVE RPR TITER (test code = 3500) NOT INDIC. TITER HPV HIGH RISK WITH GENOTYPE, [id number] 00:00:00 Test Item Value Reference Range Interpretation Comments HPV HIGH RISK INTERP (test code = NEGATIVE 72675) HPV 16 (test code = 31272) NEGATIVE HPV 18 (test code = 23183) NEGATIVE HPV, HR, OTHER GENOTYPES (test code NEGATIVE = 01078) GC AND CHLAMYDIA AMPLIFIED, [id number] 00:00:00 Test Item Value Reference Range Interpretation Comments GONORRHEA, TMA (test code = 74112) NEGATIVE CHLAMYDIA, TMA (test code = 31977) NEGATIVE GC AND CHLAMYDIA AMPLIFIED, [id number] 00:00:00 Test Item Value Reference Range Interpretation Comments GONORRHEA, TMA (test code = 14311) NEGATIVE CHLAMYDIA, TMA (test code = 67528) NEGATIVE PAP TEST, THINPREP, [id number] 00:00:00 Test Item Value Reference Range Interpretation Comments SOURCE: (test code = Cervical/Endocervical 8001) SLIDES: (test code = 1 8011) LMP: (test code = 8021) 06/03/2021 SPECIMEN ADEQUACY: (test (NOTE) code = 76983) INTERPRETATION: (test NILM/NO EPITH. code = 15382) ABNORMALITY;SEE BELOW OTHER COMMENTS: (test (NOTE) code = 8081) COMPUTER PUBLISHER: (test Kait code = 8101) JOSUE Abdul(ASCP)IAC QC TECHNOLOGIST: (test Malek code = 8111) JOSUE Castro(ASCP) IAC LOCATION: (test code = (NOTE) 10911) CPT: (test code = 8140) (NOTE) PAP TEST, THINPREP, [id number] 00:00:00 Test Item Value Reference Range Interpretation Comments SOURCE: (test code = Cervical/Endocervical 8001) SLIDES: (test code = 1 8011) LMP: (test code = 8021) 06/03/2021 SPECIMEN ADEQUACY: (test (NOTE) code = 34722) INTERPRETATION: (test NILM/NO EPITH. code = 16279) ABNORMALITY;SEE BELOW OTHER COMMENTS: (test (NOTE) code = 8081) COMPUTER PUBLISHER: (test Kait code = 8101) JOSUE Abdul(ASCP)IAC QC TECHNOLOGIST: (test Malek code = 8111) JOSUE Castro(ASCP) IAC LOCATION: (test code = (NOTE) 87574) CPT: (test code = 8140) (NOTE) RPR REFLEX TO [id number] 00:00:00 Test Item Value Reference Range Interpretation Comments RPR (test code = 69615) NON-REACTIVE RPR TITER (test code = 3500) NOT INDIC. TITER HPV HIGH RISK WITH GENOTYPE, [id number] 00:00:00 Test Item Value Reference Range Interpretation Comments HPV HIGH RISK INTERP (test code = NEGATIVE 95864) HPV 16 (test code = 28399) NEGATIVE HPV 18 (test code = 30494) NEGATIVE HPV, HR, OTHER GENOTYPES (test code NEGATIVE = 91736) RPR REFLEX TO [id number] 00:00:00 Test Item Value Reference Range Interpretation Comments RPR (test code = 83154) NON-REACTIVE RPR TITER (test code = 3500) NOT INDIC. TITER HPV HIGH RISK WITH GENOTYPE, [id number] 00:00:00 Test Item Value Reference Range Interpretation Comments HPV HIGH RISK INTERP (test code = NEGATIVE 19884) HPV 16 (test code = 73669) NEGATIVE HPV 18 (test code = 93990) NEGATIVE HPV, HR, OTHER GENOTYPES (test code NEGATIVE = 56477) GC AND CHLAMYDIA AMPLIFIED, [id number] 00:00:00 Test Item Value Reference Range Interpretation Comments GONORRHEA, TMA (test code = 04432) NEGATIVE CHLAMYDIA, TMA (test code = 98025) NEGATIVE GC AND CHLAMYDIA AMPLIFIED, [id number] 00:00:00 Test Item Value Reference Range Interpretation Comments GONORRHEA, TMA (test code = 00976) NEGATIVE CHLAMYDIA, TMA (test code = 76704) NEGATIVE PAP TEST, THINPREP, [id number] 00:00:00 Test Item Value Reference Range Interpretation Comments SOURCE: (test code = Cervical/Endocervical 8001) SLIDES: (test code = 1 8011) LMP: (test code = 8021) 06/03/2021 SPECIMEN ADEQUACY: (test (NOTE) code = 52921) INTERPRETATION: (test NILM/NO EPITH. code = 62953) ABNORMALITY;SEE BELOW OTHER COMMENTS: (test (NOTE) code = 8081) COMPUTER PUBLISHER: (test Kait code = 8101) JOSUE Abdul(ASCP)IAC QC TECHNOLOGIST: (test Malek code = 8111) KalynJOSUE(ASCP) [facility] LOCATION: (test code = (NOTE) 56152) CPT: (test code = 8140) (NOTE) PAP TEST, THINPREP, [id number] 00:00:00 Test Item Value Reference Range Interpretation Comments SOURCE: (test code = Cervical/Endocervical 8001) SLIDES: (test code = 1 8011) LMP: (test code = 8021) 06/03/2021 SPECIMEN ADEQUACY: (test (NOTE) code = 93334) INTERPRETATION: (test NILM/NO EPITH. code = 14768) ABNORMALITY;SEE BELOW OTHER COMMENTS: (test (NOTE) code = 8081) COMPUTER PUBLISHER: (test Kait code = 8101) JOSUE Abdul(ASCP)[facility] QC TECHNOLOGIST: (test Malek code = 8111) JOSUE Castro(ASCP) [facility] LOCATION: (test code = (NOTE) 53200) CPT: (test code = 8140) (NOTE) RPR REFLEX TO [id number] 00:00:00 Test Item Value Reference Range Interpretation Comments RPR (test code = 35019) NON-REACTIVE RPR TITER (test code = 3500) NOT INDIC. TITER HPV HIGH RISK WITH GENOTYPE, [id number] 00:00:00 Test Item Value Reference Range Interpretation Comments HPV HIGH RISK INTERP (test code = NEGATIVE 36829) HPV 16 (test code = 70664) NEGATIVE HPV 18 (test code = 78744) NEGATIVE HPV, HR, OTHER GENOTYPES (test code NEGATIVE = 81040) RPR REFLEX TO [id number] 00:00:00 Test Item Value Reference Range Interpretation Comments RPR (test code = 32660) NON-REACTIVE RPR TITER (test code = 3500) NOT INDIC. TITER HPV HIGH RISK WITH GENOTYPE, [id number] 00:00:00 Test Item Value Reference Range Interpretation Comments HPV HIGH RISK INTERP (test code = NEGATIVE 67713) HPV 16 (test code = 21449) NEGATIVE HPV 18 (test code = 56228) NEGATIVE HPV, HR, OTHER GENOTYPES (test code NEGATIVE = 99321) GC AND CHLAMYDIA AMPLIFIED, [id number] 00:00:00 Test Item Value Reference Range Interpretation Comments GONORRHEA, TMA (test code = 12770) NEGATIVE CHLAMYDIA, TMA (test code = 66871) NEGATIVE GC AND CHLAMYDIA AMPLIFIED, [id number] 00:00:00 Test Item Value Reference Range Interpretation Comments GONORRHEA, TMA (test code = 66326) NEGATIVE CHLAMYDIA, TMA (test code = 57946) NEGATIVE PAP TEST, THINPREP, [id number] 00:00:00 Test Item Value Reference Range Interpretation Comments SOURCE: (test code = Cervical/Endocervical 8001) SLIDES: (test code = 1 8011) LMP: (test code = 8021) 06/03/2021 SPECIMEN ADEQUACY: (test (NOTE) code = 81044) INTERPRETATION: (test NILM/NO EPITH. code = 55790) ABNORMALITY;SEE BELOW OTHER COMMENTS: (test (NOTE) code = 8081) COMPUTER PUBLISHER: (test Kait code = 8101) JOSUE Abdul(ASCP)IAC QC TECHNOLOGIST: (test Malek code = 8111) JOSUE Castro(ASCP) [facility] LOCATION: (test code = (NOTE) 26319) CPT: (test code = 8140) (NOTE) PAP TEST, THINPREP, [id number] 00:00:00 Test Item Value Reference Range Interpretation Comments SOURCE: (test code = Cervical/Endocervical 8001) SLIDES: (test code = 1 8011) LMP: (test code = 8021) 06/03/2021 SPECIMEN ADEQUACY: (test (NOTE) code = 47090) INTERPRETATION: (test NILM/NO EPITH. code = 69543) ABNORMALITY;SEE BELOW OTHER COMMENTS: (test (NOTE) code = 8081) COMPUTER PUBLISHER: (test Kait code = 8101) JOSUE Abdul(ASCP)IAC QC TECHNOLOGIST: (test Malek code = 8111) JOSUE Castro(ASCP) [facility] LOCATION: (test code = (NOTE) 86155) CPT: (test code = 8140) (NOTE) RPR REFLEX TO [id number] 00:00:00 Test Item Value Reference Range Interpretation Comments RPR (test code = 13957) NON-REACTIVE RPR TITER (test code = 3500) NOT INDIC. TITER HPV HIGH RISK WITH GENOTYPE, [id number] 00:00:00 Test Item Value Reference Range Interpretation Comments HPV HIGH RISK INTERP (test code = NEGATIVE 57031) HPV 16 (test code = 68213) NEGATIVE HPV 18 (test code = 77131) NEGATIVE HPV, HR, OTHER GENOTYPES (test code NEGATIVE = 21223) RPR REFLEX TO [id number] 00:00:00 Test Item Value Reference Range Interpretation Comments RPR (test code = 77832) NON-REACTIVE RPR TITER (test code = 3500) NOT INDIC. TITER HPV HIGH RISK WITH GENOTYPE, [id number] 00:00:00 Test Item Value Reference Range Interpretation Comments HPV HIGH RISK INTERP (test code = NEGATIVE 09649) HPV 16 (test code = 05275) NEGATIVE HPV 18 (test code = 43690) NEGATIVE HPV, HR, OTHER GENOTYPES (test code NEGATIVE = 97760) GC AND CHLAMYDIA AMPLIFIED, [id number] 00:00:00 Test Item Value Reference Range Interpretation Comments GONORRHEA, TMA (test code = 54463) NEGATIVE CHLAMYDIA, TMA (test code = 87791) NEGATIVE PAP TEST, THINPREP, [id number] 00:00:00 Test Item Value Reference Range Interpretation Comments SOURCE: (test code = Cervical/Endocervical 8001) SLIDES: (test code = 1 8011) LMP: (test code = 8021) 06/03/2021 SPECIMEN ADEQUACY: (test (NOTE) code = 56597) INTERPRETATION: (test NILM/NO EPITH. code = 61076) ABNORMALITY;SEE BELOW OTHER COMMENTS: (test (NOTE) code = 8081) COMPUTER PUBLISHER: (test Kait code = 8101) JOSUE Abdul(ASCP)IAC QC TECHNOLOGIST: (test Malek code = 8111) JOSUE Castro(ASCP) [facility] LOCATION: (test code = (NOTE) 59104) CPT: (test code = 8140) (NOTE) RPR REFLEX TO [id number] 00:00:00 Test Item Value Reference Range Interpretation Comments RPR (test code = 27648) NON-REACTIVE RPR TITER (test code = 3500) NOT INDIC. TITER HPV HIGH RISK WITH GENOTYPE, [id number] 00:00:00 Test Item Value Reference Range Interpretation Comments HPV HIGH RISK INTERP (test code = NEGATIVE 12274) HPV 16 (test code = 26833) NEGATIVE HPV 18 (test code = 00266) NEGATIVE HPV, HR, OTHER GENOTYPES (test code NEGATIVE = 34885) GC AND CHLAMYDIA AMPLIFIED, [id number] 00:00:00 Test Item Value Reference Range Interpretation Comments GONORRHEA, TMA (test code = 56761) NEGATIVE CHLAMYDIA, TMA (test code = 20098) NEGATIVE GC AND CHLAMYDIA AMPLIFIED, [id number] 00:00:00 Test Item Value Reference Range Interpretation Comments GONORRHEA, TMA (test code = 81907) NEGATIVE CHLAMYDIA, TMA (test code = 97061) NEGATIVE PAP TEST, THINPREP, [id number] 00:00:00 Test Item Value Reference Range Interpretation Comments SOURCE: (test code = Cervical/Endocervical 8001) SLIDES: (test code = 1 8011) LMP: (test code = 8021) 06/03/2021 SPECIMEN ADEQUACY: (test (NOTE) code = 92993) INTERPRETATION: (test NILM/NO EPITH. code = 98076) ABNORMALITY;SEE BELOW OTHER COMMENTS: (test (NOTE) code = 8081) COMPUTER PUBLISHER: (test Kait code = 8101) JOSUE Abdul(ASCP)IAC QC TECHNOLOGIST: (test Malek code = 8111) JOSUE Castro(ASCP) [facility] LOCATION: (test code = (NOTE) 37405) CPT: (test code = 8140) (NOTE) PAP TEST, THINPREP, [id number] 00:00:00 Test Item Value Reference Range Interpretation Comments SOURCE: (test code = Cervical/Endocervical 8001) SLIDES: (test code = 1 8011) LMP: (test code = 8021) 06/03/2021 SPECIMEN ADEQUACY: (test (NOTE) code = 96348) INTERPRETATION: (test NILM/NO EPITH. code = 60774) ABNORMALITY;SEE BELOW OTHER COMMENTS: (test (NOTE) code = 8081) COMPUTER PUBLISHER: (test Kait code = 8101) JOSUE Abdul(ASCP)IAC QC TECHNOLOGIST: (test Malek code = 8111) JOSUE Castro(ASCP) [facility] LOCATION: (test code = (NOTE) 44607) CPT: (test code = 8140) (NOTE) RPR REFLEX TO [id number] 00:00:00 Test Item Value Reference Range Interpretation Comments RPR (test code = 98844) NON-REACTIVE RPR TITER (test code = 3500) NOT INDIC. TITER HPV HIGH RISK WITH GENOTYPE, [id number] 00:00:00 Test Item Value Reference Range Interpretation Comments HPV HIGH RISK INTERP (test code = NEGATIVE 39259) HPV 16 (test code = 75858) NEGATIVE HPV 18 (test code = 85323) NEGATIVE HPV, HR, OTHER GENOTYPES (test code NEGATIVE = 72542) RPR REFLEX TO [id number] 00:00:00 Test Item Value Reference Range Interpretation Comments RPR (test code = 39197) NON-REACTIVE RPR TITER (test code = 3500) NOT INDIC. TITER HPV HIGH RISK WITH GENOTYPE, [id number] 00:00:00 Test Item Value Reference Range Interpretation Comments HPV HIGH RISK INTERP (test code = NEGATIVE 12751) HPV 16 (test code = 20031) NEGATIVE HPV 18 (test code = 09100) NEGATIVE HPV, HR, OTHER GENOTYPES (test code NEGATIVE = 32200) GC AND CHLAMYDIA AMPLIFIED, [id number] 00:00:00 Test Item Value Reference Range Interpretation Comments GONORRHEA, TMA (test code = 98754) NEGATIVE CHLAMYDIA, TMA (test code = 91618) NEGATIVE GC AND CHLAMYDIA AMPLIFIED, [id number] 00:00:00 Test Item Value Reference Range Interpretation Comments GONORRHEA, TMA (test code = 21676) NEGATIVE CHLAMYDIA, TMA (test code = 09283) NEGATIVE PAP TEST, THINPREP, [id number] 00:00:00 Test Item Value Reference Range Interpretation Comments SOURCE: (test code = Cervical/Endocervical 8001) SLIDES: (test code = 1 8011) LMP: (test code = 8021) 06/03/2021 SPECIMEN ADEQUACY: (test (NOTE) code = 79019) INTERPRETATION: (test NILM/NO EPITH. code = 53332) ABNORMALITY;SEE BELOW OTHER COMMENTS: (test (NOTE) code = 8081) COMPUTER PUBLISHER: (test Kait code = 8101) JOSUE Abdul(ASCP)[facility] QC TECHNOLOGIST: (test Malek code = 8111) JOSUE Castro(ASCP) [facility] LOCATION: (test code = (NOTE) 31809) CPT: (test code = 8140) (NOTE) PAP TEST, THINPREP, [id number] 00:00:00 Test Item Value Reference Range Interpretation Comments SOURCE: (test code = Cervical/Endocervical 8001) SLIDES: (test code = 1 8011) LMP: (test code = 8021) 06/03/2021 SPECIMEN ADEQUACY: (test (NOTE) code = 69212) INTERPRETATION: (test NILM/NO EPITH. code = 05196) ABNORMALITY;SEE BELOW OTHER COMMENTS: (test (NOTE) code = 8081) COMPUTER PUBLISHER: (test Kait code = 8101) JOSUE Abdul(ASCP)[facility] QC TECHNOLOGIST: (test Malek code = 8111) JOSUE Castro(ASCP) [facility] LOCATION: (test code = (NOTE) 12108) CPT: (test code = 8140) (NOTE) HPV HIGH RISK WITH GENOTYPE, [id number] 00:00:00 Test Item Value Reference Range Interpretation Comments HPV HIGH RISK INTERP (test code = NEGATIVE 75776) HPV 16 (test code = 63296) NEGATIVE HPV 18 (test code = 97044) NEGATIVE HPV, HR, OTHER GENOTYPES (test code NEGATIVE = 82802) RPR REFLEX TO [id number] 00:00:00 Test Item Value Reference Range Interpretation Comments RPR (test code = 86910) NON-REACTIVE RPR TITER (test code = 3500) NOT INDIC. TITER HPV HIGH RISK WITH GENOTYPE, [id number] 00:00:00 Test Item Value Reference Range Interpretation Comments HPV HIGH RISK INTERP (test code = NEGATIVE 62555) HPV 16 (test code = 06136) NEGATIVE HPV 18 (test code = 56244) NEGATIVE HPV, HR, OTHER GENOTYPES (test code NEGATIVE = 94386) RPR REFLEX TO [id number] 00:00:00 Test Item Value Reference Range Interpretation Comments RPR (test code = 79516) NON-REACTIVE RPR TITER (test code = 3500) NOT INDIC. TITER GC AND CHLAMYDIA AMPLIFIED, [id number] 00:00:00 Test Item Value Reference Range Interpretation Comments GONORRHEA, TMA (test code = 24881) NEGATIVE CHLAMYDIA, TMA (test code = 30330) NEGATIVE GC AND CHLAMYDIA AMPLIFIED, [id number] 00:00:00 Test Item Value Reference Range Interpretation Comments GONORRHEA, TMA (test code = 56497) NEGATIVE CHLAMYDIA, TMA (test code = 12608) NEGATIVE PAP TEST, THINPREP, [id number] 00:00:00 Test Item Value Reference Range Interpretation Comments SOURCE: (test code = Cervical/Endocervical 8001) SLIDES: (test code = 1 8011) LMP: (test code = 8021) 06/03/2021 SPECIMEN ADEQUACY: (test (NOTE) code = 77243) INTERPRETATION: (test NILM/NO EPITH. code = 28960) ABNORMALITY;SEE BELOW OTHER COMMENTS: (test (NOTE) code = 8081) COMPUTER PUBLISHER: (test Kait code = 8101) JOSUE Abdul(ASCP)IAC QC TECHNOLOGIST: (test Malek code = 8111) JOSUE Castro(ASCP) IAC LOCATION: (test code = (NOTE) 42226) CPT: (test code = 8140) (NOTE) PAP TEST, THINPREP, [id number] 00:00:00 Test Item Value Reference Range Interpretation Comments SOURCE: (test code = Cervical/Endocervical 8001) SLIDES: (test code = 1 8011) LMP: (test code = 8021) 06/03/2021 SPECIMEN ADEQUACY: (test (NOTE) code = 26258) INTERPRETATION: (test NILM/NO EPITH. code = 61989) ABNORMALITY;SEE BELOW OTHER COMMENTS: (test (NOTE) code = 8081) COMPUTER PUBLISHER: (test Kait code = 8101) JOSUE Abdul(ASCP)IAC QC TECHNOLOGIST: (test Malek code = 8111) JOSUE Castro(ASCP) IAC LOCATION: (test code = (NOTE) 21245) CPT: (test code = 8140) (NOTE) HPV HIGH RISK WITH GENOTYPE, [id number] 00:00:00 Test Item Value Reference Range Interpretation Comments HPV HIGH RISK INTERP (test code = NEGATIVE 35972) HPV 16 (test code = 91217) NEGATIVE HPV 18 (test code = 99967) NEGATIVE HPV, HR, OTHER GENOTYPES (test code NEGATIVE = 11954) RPR REFLEX TO [id number] 00:00:00 Test Item Value Reference Range Interpretation Comments RPR (test code = 17620) NON-REACTIVE RPR TITER (test code = 3500) NOT INDIC. TITER HPV HIGH RISK WITH GENOTYPE, [id number] 00:00:00 Test Item Value Reference Range Interpretation Comments HPV HIGH RISK INTERP (test code = NEGATIVE 13197) HPV 16 (test code = 81499) NEGATIVE HPV 18 (test code = 01390) NEGATIVE HPV, HR, OTHER GENOTYPES (test code NEGATIVE = 49128) RPR REFLEX TO [id number] 00:00:00 Test Item Value Reference Range Interpretation Comments RPR (test code = 91485) NON-REACTIVE RPR TITER (test code = 3500) NOT INDIC. TITER VAGINAL PATHOGENS DNA [id number] 13:07:08 Test Item Value Reference Range Interpretation Comments EDUARDO SPECIES (test code = 80633) NEGATIVE NEGATIVE G. VAGINALIS (test code = 87336) POSITIVE NEGATIVE A T. VAGINALIS (test code = 88200) NEGATIVE NEGATIVE HIV 1/2 4TH GEN, RFLX [id number] 07:12:48 Test Item Value Reference Range Interpretation Comments HIV 1/2 4TH GEN, RFLX CONF (test NON-REACTIVE NON-REACTIVE code = 3514) HEPATITIS PANEL, [id number] 07:12:48 Test Item Value Reference Range Interpretation Comments HEPATITIS A IgM (test NON-REACTIVE NON-REACTIVE code = 76265) HEPATITIS B CORE IgM NON-REACTIVE NON-REACTIVE (test code = 4644) HEPATITIS B SURF AG NON-REACTIVE NON-REACTIVE (test code = 2739) HEPATITIS C ANTIBODY NON-REACTIVE NON-REACTIVE (test code = 4675) INTERPRETATION (NOTE) Hepatitis A HEPATITIS A: (test serology shows no code = 2552) evidence of acu te hepatitis A. INTERPRETATION (NOTE) Hepatitis B HEPATITIS B: (test serology shows no code = 89757) evidence of ac [place] hepatitis B and no indication of exposure to hepatitis B vir us in the previous [place]. INTERPRETATION (NOTE) Hepatitis C HEPATITIS C: (test serology shows no code = 29339) evidence of ex posure to hepatitisC v irus at this time. I t can take up to 12 m onths after exposure tothe hepatitis C vir us for antibodies to become detectab le in the blood in ce rtain patients. UNLES S OTHERWISE INDIC ATED, ALL TESTING PERFORMED [facility], [place] [facility] [place] [address] ANDRA MORSE DIRECTOR: WILDA STEELE M.D. CLIA NUMBER [id number] [facility]. [id number] HIV AB/AG COMBO RFLX [id number] 00:00:00 Test Item Value Reference Range Interpretation Comments HIV 1/2 4TH GEN, RFLX CONF (test NON-REACTIVE code = 3514) VAGINAL PATHOGENS DNA [id number] 00:00:00 Test Item Value Reference Range Interpretation Comments EDUARDO SPECIES (test code = ) NEGATIVE G. VAGINALIS (test code = 48580) POSITIVE T. VAGINALIS (test code = 13073) NEGATIVE ACUTE HEPATITIS [id number] 00:00:00 Test Item Value Reference Range Interpretation Comments HEPATITIS A IgM (test code = NON-REACTIVE 18273) HEPATITIS B CORE IgM (test code NON-REACTIVE = 4644) HEPATITIS B SURF AG (test code = NON-REACTIVE 2739) HEPATITIS C ANTIBODY (test code NON-REACTIVE = 4675) INTERPRETATION HEPATITIS A: (NOTE) (test code = 2552) INTERPRETATION HEPATITIS B: (NOTE) (test code = 38498) INTERPRETATION HEPATITIS C: (NOTE) (test code = 25153) HIV AB/AG COMBO RFLX [id number] 00:00:00 Test Item Value Reference Range Interpretation Comments HIV 1/2 4TH GEN, RFLX CONF (test NON-REACTIVE code = 3514) HIV AB/AG COMBO RFLX [id number] 00:00:00 Test Item Value Reference Range Interpretation Comments HIV 1/2 4TH GEN, RFLX CONF (test NON-REACTIVE code = 3514) VAGINAL PATHOGENS DNA [id number] 00:00:00 Test Item Value Reference Range Interpretation Comments EDUARDO SPECIES (test code = ) NEGATIVE G. VAGINALIS (test code = 86722) POSITIVE T. VAGINALIS (test code = 48644) NEGATIVE VAGINAL PATHOGENS DNA [id number] 00:00:00 Test Item Value Reference Range Interpretation Comments EDUARDO SPECIES (test code = ) NEGATIVE G. VAGINALIS (test code = 79669) POSITIVE T. VAGINALIS (test code = 21771) NEGATIVE ACUTE HEPATITIS [id number] 00:00:00 Test Item Value Reference Range Interpretation Comments HEPATITIS A IgM (test code = NON-REACTIVE 44036) HEPATITIS B CORE IgM (test code NON-REACTIVE = 4644) HEPATITIS B SURF AG (test code = NON-REACTIVE 2739) HEPATITIS C ANTIBODY (test code NON-REACTIVE = 4675) INTERPRETATION HEPATITIS A: (NOTE) (test code = 2552) INTERPRETATION HEPATITIS B: (NOTE) (test code = 17820) INTERPRETATION HEPATITIS C: (NOTE) (test code = 15065) ACUTE HEPATITIS [id number] 00:00:00 Test Item Value Reference Range Interpretation Comments HEPATITIS A IgM (test code = NON-REACTIVE 43141) HEPATITIS B CORE IgM (test code NON-REACTIVE = 4644) HEPATITIS B SURF AG (test code = NON-REACTIVE 2739) HEPATITIS C ANTIBODY (test code NON-REACTIVE = 4675) INTERPRETATION HEPATITIS A: (NOTE) (test code = 2552) INTERPRETATION HEPATITIS B: (NOTE) (test code = 84741) INTERPRETATION HEPATITIS C: (NOTE) (test code = 12524) HIV AB/AG COMBO RFLX [id number] 00:00:00 Test Item Value Reference Range Interpretation Comments HIV 1/2 4TH GEN, RFLX CONF (test NON-REACTIVE code = 3514) HIV AB/AG COMBO RFLX [id number] 00:00:00 Test Item Value Reference Range Interpretation Comments HIV 1/2 4TH GEN, RFLX CONF (test NON-REACTIVE code = 3514) VAGINAL PATHOGENS DNA [id number] 00:00:00 Test Item Value Reference Range Interpretation Comments EDUARDO SPECIES (test code = ) NEGATIVE G. VAGINALIS (test code = 61370) POSITIVE T. VAGINALIS (test code = 23092) NEGATIVE VAGINAL PATHOGENS DNA [id number] 00:00:00 Test Item Value Reference Range Interpretation Comments EDUARDO SPECIES (test code = ) NEGATIVE G. VAGINALIS (test code = 56293) POSITIVE T. VAGINALIS (test code = 82905) NEGATIVE ACUTE HEPATITIS [id number] 00:00:00 Test Item Value Reference Range Interpretation Comments HEPATITIS A IgM (test code = NON-REACTIVE 20990) HEPATITIS B CORE IgM (test code NON-REACTIVE = 4644) HEPATITIS B SURF AG (test code = NON-REACTIVE 2739) HEPATITIS C ANTIBODY (test code NON-REACTIVE = 4675) INTERPRETATION HEPATITIS A: (NOTE) (test code = 2552) INTERPRETATION HEPATITIS B: (NOTE) (test code = 37623) INTERPRETATION HEPATITIS C: (NOTE) (test code = 37395) ACUTE HEPATITIS [id number] 00:00:00 Test Item Value Reference Range Interpretation Comments HEPATITIS A IgM (test code = NON-REACTIVE 42965) HEPATITIS B CORE IgM (test code NON-REACTIVE = 4644) HEPATITIS B SURF AG (test code = NON-REACTIVE 2739) HEPATITIS C ANTIBODY (test code NON-REACTIVE = 4675) INTERPRETATION HEPATITIS A: (NOTE) (test code = 2552) INTERPRETATION HEPATITIS B: (NOTE) (test code = 93486) INTERPRETATION HEPATITIS C: (NOTE) (test code = 22796) HIV AB/AG COMBO RFLX [id number] 00:00:00 Test Item Value Reference Range Interpretation Comments HIV 1/2 4TH GEN, RFLX CONF (test NON-REACTIVE code = 3514) HIV AB/AG COMBO RFLX [id number] 00:00:00 Test Item Value Reference Range Interpretation Comments HIV 1/2 4TH GEN, RFLX CONF (test NON-REACTIVE code = 3514) VAGINAL PATHOGENS DNA [id number] 00:00:00 Test Item Value Reference Range Interpretation Comments EDUARDO SPECIES (test code = ) NEGATIVE G. VAGINALIS (test code = 78047) POSITIVE T. VAGINALIS (test code = 99365) NEGATIVE VAGINAL PATHOGENS DNA [id number] 00:00:00 Test Item Value Reference Range Interpretation Comments EDUARDO SPECIES (test code = 15437) NEGATIVE G. VAGINALIS (test code = 58671) POSITIVE T. VAGINALIS (test code = 13871) NEGATIVE ACUTE HEPATITIS [id number] 00:00:00 Test Item Value Reference Range Interpretation Comments HEPATITIS A IgM (test code = NON-REACTIVE 15928) HEPATITIS B CORE IgM (test code NON-REACTIVE = 4644) HEPATITIS B SURF AG (test code = NON-REACTIVE 2739) HEPATITIS C ANTIBODY (test code NON-REACTIVE = 4675) INTERPRETATION HEPATITIS A: (NOTE) (test code = 2552) INTERPRETATION HEPATITIS B: (NOTE) (test code = 16572) INTERPRETATION HEPATITIS C: (NOTE) (test code = 94848) ACUTE HEPATITIS [id number] 00:00:00 Test Item Value Reference Range Interpretation Comments HEPATITIS A IgM (test code = NON-REACTIVE 66751) HEPATITIS B CORE IgM (test code NON-REACTIVE = 4644) HEPATITIS B SURF AG (test code = NON-REACTIVE 2739) HEPATITIS C ANTIBODY (test code NON-REACTIVE = 4675) INTERPRETATION HEPATITIS A: (NOTE) (test code = 2552) INTERPRETATION HEPATITIS B: (NOTE) (test code = 77365) INTERPRETATION HEPATITIS C: (NOTE) (test code = 57103) HIV AB/AG COMBO RFLX [id number] 00:00:00 Test Item Value Reference Range Interpretation Comments HIV 1/2 4TH GEN, RFLX CONF (test NON-REACTIVE code = 3514) HIV AB/AG COMBO RFLX [id number] 00:00:00 Test Item Value Reference Range Interpretation Comments HIV 1/2 4TH GEN, RFLX CONF (test NON-REACTIVE code = 3514) VAGINAL PATHOGENS DNA [id number] 00:00:00 Test Item Value Reference Range Interpretation Comments EDUARDO SPECIES (test code = 27120) NEGATIVE G. VAGINALIS (test code = 23917) POSITIVE T. VAGINALIS (test code = 99791) NEGATIVE VAGINAL PATHOGENS DNA [id number] 00:00:00 Test Item Value Reference Range Interpretation Comments EDUARDO SPECIES (test code = 56885) NEGATIVE G. VAGINALIS (test code = 54716) POSITIVE T. VAGINALIS (test code = 17564) NEGATIVE ACUTE HEPATITIS [id number] 00:00:00 Test Item Value Reference Range Interpretation Comments HEPATITIS A IgM (test code = NON-REACTIVE 36682) HEPATITIS B CORE IgM (test code NON-REACTIVE = 4644) HEPATITIS B SURF AG (test code = NON-REACTIVE 2739) HEPATITIS C ANTIBODY (test code NON-REACTIVE = 4675) INTERPRETATION HEPATITIS A: (NOTE) (test code = 2552) INTERPRETATION HEPATITIS B: (NOTE) (test code = 29206) INTERPRETATION HEPATITIS C: (NOTE) (test code = 61736) ACUTE HEPATITIS [id number] 00:00:00 Test Item Value Reference Range Interpretation Comments HEPATITIS A IgM (test code = NON-REACTIVE 36262) HEPATITIS B CORE IgM (test code NON-REACTIVE = 4644) HEPATITIS B SURF AG (test code = NON-REACTIVE 2739) HEPATITIS C ANTIBODY (test code NON-REACTIVE = 4675) INTERPRETATION HEPATITIS A: (NOTE) (test code = 2552) INTERPRETATION HEPATITIS B: (NOTE) (test code = 36808) INTERPRETATION HEPATITIS C: (NOTE) (test code = 41383) HIV AB/AG COMBO RFLX [id number] 00:00:00 Test Item Value Reference Range Interpretation Comments HIV 1/2 4TH GEN, RFLX CONF (test NON-REACTIVE code = 3514) HIV AB/AG COMBO RFLX [id number] 00:00:00 Test Item Value Reference Range Interpretation Comments HIV 1/2 4TH GEN, RFLX CONF (test NON-REACTIVE code = 3514) VAGINAL PATHOGENS DNA [id number] 00:00:00 Test Item Value Reference Range Interpretation Comments EDUARDO SPECIES (test code = ) NEGATIVE G. VAGINALIS (test code = 78916) POSITIVE T. VAGINALIS (test code = 60993) NEGATIVE VAGINAL PATHOGENS DNA [id number] 00:00:00 Test Item Value Reference Range Interpretation Comments EDUARDO SPECIES (test code = 49908) NEGATIVE G. VAGINALIS (test code = 22892) POSITIVE T. VAGINALIS (test code = 41133) NEGATIVE ACUTE HEPATITIS [id number] 00:00:00 Test Item Value Reference Range Interpretation Comments HEPATITIS A IgM (test code = NON-REACTIVE 81088) HEPATITIS B CORE IgM (test code NON-REACTIVE = 4644) HEPATITIS B SURF AG (test code = NON-REACTIVE 2739) HEPATITIS C ANTIBODY (test code NON-REACTIVE = 4675) INTERPRETATION HEPATITIS A: (NOTE) (test code = 2552) INTERPRETATION HEPATITIS B: (NOTE) (test code = 20319) INTERPRETATION HEPATITIS C: (NOTE) (test code = 72614) ACUTE HEPATITIS [id number] 00:00:00 Test Item Value Reference Range Interpretation Comments HEPATITIS A IgM (test code = NON-REACTIVE 43192) HEPATITIS B CORE IgM (test code NON-REACTIVE = 4644) HEPATITIS B SURF AG (test code = NON-REACTIVE 2739) HEPATITIS C ANTIBODY (test code NON-REACTIVE = 4675) INTERPRETATION HEPATITIS A: (NOTE) (test code = 2552) INTERPRETATION HEPATITIS B: (NOTE) (test code = 08879) INTERPRETATION HEPATITIS C: (NOTE) (test code = 16576) HIV AB/AG COMBO RFLX [id number] 00:00:00 Test Item Value Reference Range Interpretation Comments HIV 1/2 4TH GEN, RFLX CONF (test NON-REACTIVE code = 3514) VAGINAL PATHOGENS DNA [id number] 00:00:00 Test Item Value Reference Range Interpretation Comments EDUARDO SPECIES (test code = ) NEGATIVE G. VAGINALIS (test code = 83436) POSITIVE T. VAGINALIS (test code = 63517) NEGATIVE ACUTE HEPATITIS [id number] 00:00:00 Test Item Value Reference Range Interpretation Comments HEPATITIS A IgM (test code = NON-REACTIVE 02759) HEPATITIS B CORE IgM (test code NON-REACTIVE = 4644) HEPATITIS B SURF AG (test code = NON-REACTIVE 2739) HEPATITIS C ANTIBODY (test code NON-REACTIVE = 4675) INTERPRETATION HEPATITIS A: (NOTE) (test code = 2552) INTERPRETATION HEPATITIS B: (NOTE) (test code = 07039) INTERPRETATION HEPATITIS C: (NOTE) (test code = 48260) HIV AB/AG COMBO RFLX [id number] 00:00:00 Test Item Value Reference Range Interpretation Comments HIV 1/2 4TH GEN, RFLX CONF (test NON-REACTIVE code = 3514) HIV AB/AG COMBO RFLX [id number] 00:00:00 Test Item Value Reference Range Interpretation Comments HIV 1/2 4TH GEN, RFLX CONF (test NON-REACTIVE code = 3514) VAGINAL PATHOGENS DNA [id number] 00:00:00 Test Item Value Reference Range Interpretation Comments EDUARDO SPECIES (test code = ) NEGATIVE G. VAGINALIS (test code = 48539) POSITIVE T. VAGINALIS (test code = 19349) NEGATIVE VAGINAL PATHOGENS DNA [id number] 00:00:00 Test Item Value Reference Range Interpretation Comments EDUARDO SPECIES (test code = ) NEGATIVE G. VAGINALIS (test code = 43740) POSITIVE T. VAGINALIS (test code = 68549) NEGATIVE ACUTE HEPATITIS [id number] 00:00:00 Test Item Value Reference Range Interpretation Comments HEPATITIS A IgM (test code = NON-REACTIVE 91663) HEPATITIS B CORE IgM (test code NON-REACTIVE = 4644) HEPATITIS B SURF AG (test code = NON-REACTIVE 2739) HEPATITIS C ANTIBODY (test code NON-REACTIVE = 4675) INTERPRETATION HEPATITIS A: (NOTE) (test code = 2552) INTERPRETATION HEPATITIS B: (NOTE) (test code = 24567) INTERPRETATION HEPATITIS C: (NOTE) (test code = 35278) ACUTE HEPATITIS [id number] 00:00:00 Test Item Value Reference Range Interpretation Comments HEPATITIS A IgM (test code = NON-REACTIVE 51008) HEPATITIS B CORE IgM (test code NON-REACTIVE = 4644) HEPATITIS B SURF AG (test code = NON-REACTIVE 2739) HEPATITIS C ANTIBODY (test code NON-REACTIVE = 4675) INTERPRETATION HEPATITIS A: (NOTE) (test code = 2552) INTERPRETATION HEPATITIS B: (NOTE) (test code = 57194) INTERPRETATION HEPATITIS C: (NOTE) (test code = 54120) HIV AB/AG COMBO RFLX [id number] 00:00:00 Test Item Value Reference Range Interpretation Comments HIV 1/2 4TH GEN, RFLX CONF (test NON-REACTIVE code = 3514) HIV AB/AG COMBO RFLX [id number] 00:00:00 Test Item Value Reference Range Interpretation Comments HIV 1/2 4TH GEN, RFLX CONF (test NON-REACTIVE code = 3514) VAGINAL PATHOGENS DNA [id number] 00:00:00 Test Item Value Reference Range Interpretation Comments EDUARDO SPECIES (test code = 99574) NEGATIVE G. VAGINALIS (test code = 51735) POSITIVE T. VAGINALIS (test code = 60177) NEGATIVE VAGINAL PATHOGENS DNA [id number] 00:00:00 Test Item Value Reference Range Interpretation Comments EDUARDO SPECIES (test code = 12784) NEGATIVE G. VAGINALIS (test code = 17194) POSITIVE T. VAGINALIS (test code = 01050) NEGATIVE ACUTE HEPATITIS [id number] 00:00:00 Test Item Value Reference Range Interpretation Comments HEPATITIS A IgM (test code = NON-REACTIVE 47613) HEPATITIS B CORE IgM (test code NON-REACTIVE = 4644) HEPATITIS B SURF AG (test code = NON-REACTIVE 2739) HEPATITIS C ANTIBODY (test code NON-REACTIVE = 4675) INTERPRETATION HEPATITIS A: (NOTE) (test code = 2552) INTERPRETATION HEPATITIS B: (NOTE) (test code = 48927) INTERPRETATION HEPATITIS C: (NOTE) (test code = 18318) ACUTE HEPATITIS [id number] 00:00:00 Test Item Value Reference Range Interpretation Comments HEPATITIS A IgM (test code = NON-REACTIVE 92214) HEPATITIS B CORE IgM (test code NON-REACTIVE = 4644) HEPATITIS B SURF AG (test code = NON-REACTIVE 2739) HEPATITIS C ANTIBODY (test code NON-REACTIVE = 4675) INTERPRETATION HEPATITIS A: (NOTE) (test code = 2552) INTERPRETATION HEPATITIS B: (NOTE) (test code = 26654) INTERPRETATION HEPATITIS C: (NOTE) (test code = 99203) HIV AB/AG COMBO RFLX [id number] 00:00:00 Test Item Value Reference Range Interpretation Comments HIV 1/2 4TH GEN, RFLX CONF (test NON-REACTIVE code = 3514) HIV AB/AG COMBO RFLX [id number] 00:00:00 Test Item Value Reference Range Interpretation Comments HIV 1/2 4TH GEN, RFLX CONF (test NON-REACTIVE code = 3514) VAGINAL PATHOGENS DNA [id number] 00:00:00 Test Item Value Reference Range Interpretation Comments EDUARDO SPECIES (test code = 62127) NEGATIVE G. VAGINALIS (test code = 41993) POSITIVE T. VAGINALIS (test code = 01231) NEGATIVE VAGINAL PATHOGENS DNA [id number] 00:00:00 Test Item Value Reference Range Interpretation Comments EDUARDO SPECIES (test code = 93873) NEGATIVE G. VAGINALIS (test code = 70390) POSITIVE T. VAGINALIS (test code = 62595) NEGATIVE ACUTE HEPATITIS [id number] 00:00:00 Test Item Value Reference Range Interpretation Comments HEPATITIS A IgM (test code = NON-REACTIVE 40535) HEPATITIS B CORE IgM (test code NON-REACTIVE = 4644) HEPATITIS B SURF AG (test code = NON-REACTIVE 2739) HEPATITIS C ANTIBODY (test code NON-REACTIVE = 4675) INTERPRETATION HEPATITIS A: (NOTE) (test code = 2552) INTERPRETATION HEPATITIS B: (NOTE) (test code = 90093) INTERPRETATION HEPATITIS C: (NOTE) (test code = 12582) ACUTE HEPATITIS [id number] 00:00:00 Test Item Value Reference Range Interpretation Comments HEPATITIS A IgM (test code = NON-REACTIVE 79788) HEPATITIS B CORE IgM (test code NON-REACTIVE = 4644) HEPATITIS B SURF AG (test code = NON-REACTIVE 2739) HEPATITIS C ANTIBODY (test code NON-REACTIVE = 4675) INTERPRETATION HEPATITIS A: (NOTE) (test code = 2552) INTERPRETATION HEPATITIS B: (NOTE) (test code = 08497) INTERPRETATION HEPATITIS C: (NOTE) (test code = 43246) TSH, THIRD [id number] 05:23:05 Test Item Value Reference Range Interpretation Comments TSH, THIRD GENERATION (test code 0.651 UIU/ML 0.400-4.100 = 2821) HEMOGLOBIN [id number] 04:43:10 Test Item Value Reference Range Interpretation Comments HEMOGLOBIN A1c (test code = 51783) 5.8 % 4.2-5.6 H CBC W/AUTO DIFF WITH [id number] 04:08:17 Test Item Value Reference Range Interpretation Comments WBC (test code = 7.2 K/UL 3.5-11.0 1001) RBC (test code = 4.65 M/UL 3.80-5.40 1002) HEMOGLOBIN (test code 13.4 G/DL 11.5-15.5 = 1003) HEMATOCRIT (test code 38.6 % 34.0-45.0 = 1004) MCV (test code = 83.0 fL 80.0-99.0 1005) MCH (test code = 28.8 PG 25.0-33.0 1006) MCHC (test code = 34.7 G/DL 31.0-36.0 1007) RDW (test code = 14.3 % 11.5-15.0 1038) NEUTROPHILS (test 53.3 % code = 1008) LYMPHOCYTES (test 37.0 % code = 1010) MONOCYTES (test code 5.6 % = 1011) EOSINOPHILS (test 3.2 % code = 1012) BASOPHILS (test code 0.6 % = 1013) IMMATURE GRANULOCYTES 0.3 % (test code = 1036) NUCLEATED RBCS (test 0.0 /100 WBC'S See_Comment [Aut omated code = 1065) message] The sy stem which generated this result transmitted reference range : 0.0. The refere nce range was not u sed to interpret th is result as normal/abnormal . PLATELET COUNT (test 251 K/UL 130-400 code = 1015) ABSOLUTE NEUTROPHILS 3.84 K/UL 1.50-7.50 (test code = 1066) ABSOLUTE LYMPHOCYTES 2.66 K/UL 1.00-4.00 (test code = 1067) ABSOLUTE MONOCYTES 0.40 K/UL 0.20-1.00 (test code = 1068) ABSOLUTE EOSINOPHILS 0.23 K/UL 0.00-0.50 (test code = 1040) ABSOLUTE BASOPHILS 0.04 K/UL 0.00-0.20 (test code = 1069) ABS IMMATURE 0.02 K/UL 0.00-0.10 GRANULOCYTES (test code = 1020) ABS NUCLEATED RBCS 0.00 K/UL 0.00-0.11 (test code = 27541) COMPREHENSIVE METABOLIC [id number] 03:38:56 Test Item Value Reference Range Interpretation Comments GLUCOSE (test code = 90 MG/DL 70-99 2216) BUN (test code = 12 MG/DL 6-20 2207) CREATININE (test 0.66 MG/DL 0.60-1.30 code = 2214) eGFR (2020 CKD-EPI) 114 >60 (test code = 40855) ML/MIN/1.73 CALC BUN/CREAT (test 18 RATIO 6-28 code = 2235) SODIUM (test code = 138 MEQ/L 227-282 3226) POTASSIUM (test code 4.4 MEQ/L 3.5-5.4 = 2227) CHLORIDE (test code 101 MEQ/L 95-107 = 2215) CARBON DIOXIDE (test 22 MEQ/L 19-31 code = 2206) CALCIUM (test code = 9.6 MG/DL 8.5-10.5 2208) PROTEIN, TOTAL (test 7.4 G/DL 6.1-8.3 code = 2229) ALBUMIN (test code = 4.4 G/DL 3.5-5.2 2200) CALC GLOBULIN (test 3.0 G/DL 1.9-3.7 code = 2240) CALC A/G RATIO (test 1.5 RATIO 1.0-2.6 code = 2234) BILIRUBIN, TOTAL <0.2 MG/DL See_Comment [Automated message] (test code = 2207) The syste m which generated this result transmit sofía reference range : <=1.2. The refe rence range was not u sed to interpret th is result as normal/abnormal . ALKALINE PHOSPHATASE 88 U/L 40-112 (test code = 2203) AST (test code = 17 U/L 9-40 2217) ALT (test code = 16 U/L 5-40 2218) HEPATIC FUNCTION [id number] 03:38:56 Test Item Value Reference Range Interpretation Comments PROTEIN, TOTAL (test 7.4 G/DL 6.1-8.3 code = 2228) ALBUMIN (test code = 4.4 G/DL 3.5-5.2 2200) BILIRUBIN, TOTAL <0.2 MG/DL See_Comment [Automated message] (test code = 2206) The syste m which generated this result transmitted ref erence range: <=1.2. T he reference range was not used to int erpret this result as normal/abnormal . BILIRUBIN, DIRECT <0.2 MG/DL 0.0-0.3 (test code = 2021) ALKALINE PHOSPHATASE 88 U/L 40-112 (test code = 2203) AST (test code = 17 U/L 9-40 2217) ALT (test code = 16 U/L 5-40 UNLESS OTH ERWISE 2218) INDICATED, ALL TESTING PERFORMED [facility], [address] DIRECTOR: WILDA STEELE M.D. CLIA NUMBER [id number] CAP ACCREDITATION N O. [id number] HEMOGLOBIN [id number] 00:00:00 Test Item Value Reference Range Interpretation Comments HEMOGLOBIN A1c (test code = 68900) 5.8 % HEMOGLOBIN [id number] 00:00:00 Test Item Value Reference Range Interpretation Comments HEMOGLOBIN A1c (test code = 61577) 5.8 % CBC W/AUTO [id number] 00:00:00 Test Item Value Reference Range Interpretation Comments WBC (test code = 1001) 7.2 K/UL RBC (test code = 1002) 4.65 M/UL HEMOGLOBIN (test code = 1003) 13.4 G/DL HEMATOCRIT (test code = 1004) 38.6 % MCV (test code = 1005) 83.0 fL MCH (test code = 1006) 28.8 PG MCHC (test code = 1007) 34.7 G/DL RDW (test code = 1038) 14.3 % NEUTROPHILS (test code = 1008) 53.3 % LYMPHOCYTES (test code = 1010) 37.0 % MONOCYTES (test code = 1011) 5.6 % EOSINOPHILS (test code = 1012) 3.2 % BASOPHILS (test code = 1013) 0.6 % IMMATURE GRANULOCYTES (test 0.3 % code = 1036) NUCLEATED RBCS (test code = 0.0 /100WBC'S 1065) PLATELET COUNT (test code = 251 K/UL 1015) ABSOLUTE NEUTROPHILS (test code 3.84 K/UL = 1066) ABSOLUTE LYMPHOCYTES (test code 2.66 K/UL = 1067) ABSOLUTE MONOCYTES (test code = 0.40 K/UL 1068) ABSOLUTE EOSINOPHILS (test code 0.23 K/UL = 1040) ABSOLUTE BASOPHILS (test code = 0.04 K/UL 1069) ABS IMMATURE GRANULOCYTES (test 0.02 K/UL code = 1020) ABS NUCLEATED RBCS (test code = 0.00 K/UL 72576) CBC W/AUTO [id number] 00:00:00 Test Item Value Reference Range Interpretation Comments WBC (test code = 1001) 7.2 K/UL RBC (test code = 1002) 4.65 M/UL HEMOGLOBIN (test code = 1003) 13.4 G/DL HEMATOCRIT (test code = 1004) 38.6 % MCV (test code = 1005) 83.0 fL MCH (test code = 1006) 28.8 PG MCHC (test code = 1007) 34.7 G/DL RDW (test code = 1038) 14.3 % NEUTROPHILS (test code = 1008) 53.3 % LYMPHOCYTES (test code = 1010) 37.0 % MONOCYTES (test code = 1011) 5.6 % EOSINOPHILS (test code = 1012) 3.2 % BASOPHILS (test code = 1013) 0.6 % IMMATURE GRANULOCYTES (test 0.3 % code = 1036) NUCLEATED RBCS (test code = 0.0 /100WBC'S 1065) PLATELET COUNT (test code = 251 K/UL 1015) ABSOLUTE NEUTROPHILS (test code 3.84 K/UL = 1066) ABSOLUTE LYMPHOCYTES (test code 2.66 K/UL = 1067) ABSOLUTE MONOCYTES (test code = 0.40 K/UL 1068) ABSOLUTE EOSINOPHILS (test code 0.23 K/UL = 1040) ABSOLUTE BASOPHILS (test code = 0.04 K/UL 1069) ABS IMMATURE GRANULOCYTES (test 0.02 K/UL code = 1020) ABS NUCLEATED RBCS (test code = 0.00 K/UL 85416) COMPREHENSIVE METABOLIC [id number] 00:00:00 Test Item Value Reference Range Interpretation Comments GLUCOSE (test code = 2217) 90 MG/DL BUN (test code = 2208) 12 MG/DL CREATININE (test code = 2214) 0.66 MG/DL eGFR (2020 CKD-EPI) (test 114 ML/MIN/1.73 code = 02578) CALC BUN/CREAT (test code = 18 RATIO 2235) SODIUM (test code = 2231) 138 MEQ/L POTASSIUM (test code = 2228) 4.4 MEQ/L CHLORIDE (test code = 2215) 101 MEQ/L CARBON DIOXIDE (test code = 22 MEQ/L 2205) CALCIUM (test code = 2209) 9.6 MG/DL PROTEIN, TOTAL (test code = 7.4 G/DL 2228) ALBUMIN (test code = 2201) 4.4 G/DL CALC GLOBULIN (test code = 3.0 G/DL 2240) CALC A/G RATIO (test code = 1.5 RATIO 4) BILIRUBIN, TOTAL (test code = <0.2 MG/DL 2206) ALKALINE PHOSPHATASE (test 88 U/L code = 2204) AST (test code = 2218) 17 U/L ALT (test code = 2219) 16 U/L [id number] 00:00:00 Test Item Value Reference Range Interpretation Comments TSH, THIRD GENERATION (test code 0.651 UIU/ML = 2821) [id number] 00:00:00 Test Item Value Reference Range Interpretation Comments TSH, THIRD GENERATION (test code 0.651 UIU/ML = 2821) HEMOGLOBIN [id number] 00:00:00 Test Item Value Reference Range Interpretation Comments HEMOGLOBIN A1c (test code = 05567) 5.8 % HEMOGLOBIN [id number] 00:00:00 Test Item Value Reference Range Interpretation Comments HEMOGLOBIN A1c (test code = 30839) 5.8 % HEMOGLOBIN [id number] 00:00:00 Test Item Value Reference Range Interpretation Comments HEMOGLOBIN A1c (test code = 63722) 5.8 % CBC W/AUTO [id number] 00:00:00 Test Item Value Reference Range Interpretation Comments WBC (test code = 1001) 7.2 K/UL RBC (test code = 1002) 4.65 M/UL HEMOGLOBIN (test code = 1003) 13.4 G/DL HEMATOCRIT (test code = 1004) 38.6 % MCV (test code = 1005) 83.0 fL MCH (test code = 1006) 28.8 PG MCHC (test code = 1007) 34.7 G/DL RDW (test code = 1038) 14.3 % NEUTROPHILS (test code = 1008) 53.3 % LYMPHOCYTES (test code = 1010) 37.0 % MONOCYTES (test code = 1011) 5.6 % EOSINOPHILS (test code = 1012) 3.2 % BASOPHILS (test code = 1013) 0.6 % IMMATURE GRANULOCYTES (test 0.3 % code = 1036) NUCLEATED RBCS (test code = 0.0 /100WBC'S 1065) PLATELET COUNT (test code = 251 K/UL 1015) ABSOLUTE NEUTROPHILS (test code 3.84 K/UL = 1066) ABSOLUTE LYMPHOCYTES (test code 2.66 K/UL = 1067) ABSOLUTE MONOCYTES (test code = 0.40 K/UL 1068) ABSOLUTE EOSINOPHILS (test code 0.23 K/UL = 1040) ABSOLUTE BASOPHILS (test code = 0.04 K/UL 1069) ABS IMMATURE GRANULOCYTES (test 0.02 K/UL code = 1020) ABS NUCLEATED RBCS (test code = 0.00 K/UL 94876) CBC W/AUTO [id number] 00:00:00 Test Item Value Reference Range Interpretation Comments WBC (test code = 1001) 7.2 K/UL RBC (test code = 1002) 4.65 M/UL HEMOGLOBIN (test code = 1003) 13.4 G/DL HEMATOCRIT (test code = 1004) 38.6 % MCV (test code = 1005) 83.0 fL MCH (test code = 1006) 28.8 PG MCHC (test code = 1007) 34.7 G/DL RDW (test code = 1038) 14.3 % NEUTROPHILS (test code = 1008) 53.3 % LYMPHOCYTES (test code = 1010) 37.0 % MONOCYTES (test code = 1011) 5.6 % EOSINOPHILS (test code = 1012) 3.2 % BASOPHILS (test code = 1013) 0.6 % IMMATURE GRANULOCYTES (test 0.3 % code = 1036) NUCLEATED RBCS (test code = 0.0 /100WBC'S 1065) PLATELET COUNT (test code = 251 K/UL 1015) ABSOLUTE NEUTROPHILS (test code 3.84 K/UL = 1066) ABSOLUTE LYMPHOCYTES (test code 2.66 K/UL = 1067) ABSOLUTE MONOCYTES (test code = 0.40 K/UL 1068) ABSOLUTE EOSINOPHILS (test code 0.23 K/UL = 1040) ABSOLUTE BASOPHILS (test code = 0.04 K/UL 1069) ABS IMMATURE GRANULOCYTES (test 0.02 K/UL code = 1020) ABS NUCLEATED RBCS (test code = 0.00 K/UL 22277) LIVER (HEPATIC) FUNCTION [id number] 00:00:00 Test Item Value Reference Range Interpretation Comments PROTEIN, TOTAL (test code = 2229) 7.4 G/DL ALBUMIN (test code = 2201) 4.4 G/DL BILIRUBIN, TOTAL (test code = <0.2 MG/DL 2206) BILIRUBIN, DIRECT (test code = <0.2 MG/DL 2021) ALKALINE PHOSPHATASE (test code = 88 U/L 2203) AST (test code = 2218) 17 U/L ALT (test code = 2219) 16 U/L CBC W/AUTO [id number] 00:00:00 Test Item Value Reference Range Interpretation Comments WBC (test code = 1001) 7.2 K/UL RBC (test code = 1002) 4.65 M/UL HEMOGLOBIN (test code = 1003) 13.4 G/DL HEMATOCRIT (test code = 1004) 38.6 % MCV (test code = 1005) 83.0 fL MCH (test code = 1006) 28.8 PG MCHC (test code = 1007) 34.7 G/DL RDW (test code = 1038) 14.3 % NEUTROPHILS (test code = 1008) 53.3 % LYMPHOCYTES (test code = 1010) 37.0 % MONOCYTES (test code = 1011) 5.6 % EOSINOPHILS (test code = 1012) 3.2 % BASOPHILS (test code = 1013) 0.6 % IMMATURE GRANULOCYTES (test 0.3 % code = 1036) NUCLEATED RBCS (test code = 0.0 /100WBC'S 1065) PLATELET COUNT (test code = 251 K/UL 1015) ABSOLUTE NEUTROPHILS (test code 3.84 K/UL = 1066) ABSOLUTE LYMPHOCYTES (test code 2.66 K/UL = 1067) ABSOLUTE MONOCYTES (test code = 0.40 K/UL 1068) ABSOLUTE EOSINOPHILS (test code 0.23 K/UL = 1040) ABSOLUTE BASOPHILS (test code = 0.04 K/UL 1069) ABS IMMATURE GRANULOCYTES (test 0.02 K/UL code = 1020) ABS NUCLEATED RBCS (test code = 0.00 K/UL 81151) COMPREHENSIVE METABOLIC [id number] 00:00:00 Test Item Value Reference Range Interpretation Comments GLUCOSE (test code = 2217) 90 MG/DL BUN (test code = 2208) 12 MG/DL CREATININE (test code = 2214) 0.66 MG/DL eGFR (2020 CKD-EPI) (test 114 ML/MIN/1.73 code = 17917) CALC BUN/CREAT (test code = 18 RATIO 2235) SODIUM (test code = 2231) 138 MEQ/L POTASSIUM (test code = 2228) 4.4 MEQ/L CHLORIDE (test code = 2215) 101 MEQ/L CARBON DIOXIDE (test code = 22 MEQ/L 220) CALCIUM (test code = 2209) 9.6 MG/DL PROTEIN, TOTAL (test code = 7.4 G/DL 222) ALBUMIN (test code = 2201) 4.4 G/DL CALC GLOBULIN (test code = 3.0 G/DL 2240) CALC A/G RATIO (test code = 1.5 RATIO 2234) BILIRUBIN, TOTAL (test code = <0.2 MG/DL 2206) ALKALINE PHOSPHATASE (test 88 U/L code = 2204) AST (test code = 2218) 17 U/L ALT (test code = 2219) 16 U/L COMPREHENSIVE METABOLIC [id number] 00:00:00 Test Item Value Reference Range Interpretation Comments GLUCOSE (test code = 2217) 90 MG/DL BUN (test code = 2208) 12 MG/DL CREATININE (test code = 2214) 0.66 MG/DL eGFR (2020 CKD-EPI) (test 114 ML/MIN/1.73 code = 12462) CALC BUN/CREAT (test code = 18 RATIO 223) SODIUM (test code = 2231) 138 MEQ/L POTASSIUM (test code = 2228) 4.4 MEQ/L CHLORIDE (test code = 2215) 101 MEQ/L CARBON DIOXIDE (test code = 22 MEQ/L 2205) CALCIUM (test code = 2209) 9.6 MG/DL PROTEIN, TOTAL (test code = 7.4 G/DL 2228) ALBUMIN (test code = 2201) 4.4 G/DL CALC GLOBULIN (test code = 3.0 G/DL 2239) CALC A/G RATIO (test code = 1.5 RATIO 2233) BILIRUBIN, TOTAL (test code = <0.2 MG/DL 2206) ALKALINE PHOSPHATASE (test 88 U/L code = 220) AST (test code = 2218) 17 U/L ALT (test code = 2219) 16 U/L [id number] 00:00:00 Test Item Value Reference Range Interpretation Comments TSH, THIRD GENERATION (test code 0.651 UIU/ML = 2821) [id number] 00:00:00 Test Item Value Reference Range Interpretation Comments TSH, THIRD GENERATION (test code 0.651 UIU/ML = 2821) [id number] 00:00:00 Test Item Value Reference Range Interpretation Comments TSH, THIRD GENERATION (test code 0.651 UIU/ML = 2821) LIVER (HEPATIC) FUNCTION [id number] 00:00:00 Test Item Value Reference Range Interpretation Comments PROTEIN, TOTAL (test code = 2229) 7.4 G/DL ALBUMIN (test code = 2201) 4.4 G/DL BILIRUBIN, TOTAL (test code = <0.2 MG/DL 2206) BILIRUBIN, DIRECT (test code = <0.2 MG/DL 2021) ALKALINE PHOSPHATASE (test code = 88 U/L 2203) AST (test code = 2218) 17 U/L ALT (test code = 2219) 16 U/L LIVER (HEPATIC) FUNCTION [id number] 00:00:00 Test Item Value Reference Range Interpretation Comments PROTEIN, TOTAL (test code = 2229) 7.4 G/DL ALBUMIN (test code = 2201) 4.4 G/DL BILIRUBIN, TOTAL (test code = <0.2 MG/DL 2206) BILIRUBIN, DIRECT (test code = <0.2 MG/DL 2021) ALKALINE PHOSPHATASE (test code = 88 U/L 2203) AST (test code = 2218) 17 U/L ALT (test code = 2219) 16 U/L HEMOGLOBIN [id number] 00:00:00 Test Item Value Reference Range Interpretation Comments HEMOGLOBIN A1c (test code = 08629) 5.8 % HEMOGLOBIN [id number] 00:00:00 Test Item Value Reference Range Interpretation Comments HEMOGLOBIN A1c (test code = 61180) 5.8 % HEMOGLOBIN [id number] 00:00:00 Test Item Value Reference Range Interpretation Comments HEMOGLOBIN A1c (test code = 37158) 5.8 % CBC W/AUTO [id number] 00:00:00 Test Item Value Reference Range Interpretation Comments WBC (test code = 1001) 7.2 K/UL RBC (test code = 1002) 4.65 M/UL HEMOGLOBIN (test code = 1003) 13.4 G/DL HEMATOCRIT (test code = 1004) 38.6 % MCV (test code = 1005) 83.0 fL MCH (test code = 1006) 28.8 PG MCHC (test code = 1007) 34.7 G/DL RDW (test code = 1038) 14.3 % NEUTROPHILS (test code = 1008) 53.3 % LYMPHOCYTES (test code = 1010) 37.0 % MONOCYTES (test code = 1011) 5.6 % EOSINOPHILS (test code = 1012) 3.2 % BASOPHILS (test code = 1013) 0.6 % IMMATURE GRANULOCYTES (test 0.3 % code = 1036) NUCLEATED RBCS (test code = 0.0 /100WBC'S 1065) PLATELET COUNT (test code = 251 K/UL 1015) ABSOLUTE NEUTROPHILS (test code 3.84 K/UL = 1066) ABSOLUTE LYMPHOCYTES (test code 2.66 K/UL = 1067) ABSOLUTE MONOCYTES (test code = 0.40 K/UL 1068) ABSOLUTE EOSINOPHILS (test code 0.23 K/UL = 1040) ABSOLUTE BASOPHILS (test code = 0.04 K/UL 1069) ABS IMMATURE GRANULOCYTES (test 0.02 K/UL code = 1020) ABS NUCLEATED RBCS (test code = 0.00 K/UL 41082) CBC W/AUTO [id number] 00:00:00 Test Item Value Reference Range Interpretation Comments WBC (test code = 1001) 7.2 K/UL RBC (test code = 1002) 4.65 M/UL HEMOGLOBIN (test code = 1003) 13.4 G/DL HEMATOCRIT (test code = 1004) 38.6 % MCV (test code = 1005) 83.0 fL MCH (test code = 1006) 28.8 PG MCHC (test code = 1007) 34.7 G/DL RDW (test code = 1038) 14.3 % NEUTROPHILS (test code = 1008) 53.3 % LYMPHOCYTES (test code = 1010) 37.0 % MONOCYTES (test code = 1011) 5.6 % EOSINOPHILS (test code = 1012) 3.2 % BASOPHILS (test code = 1013) 0.6 % IMMATURE GRANULOCYTES (test 0.3 % code = 1036) NUCLEATED RBCS (test code = 0.0 /100WBC'S 1065) PLATELET COUNT (test code = 251 K/UL 1015) ABSOLUTE NEUTROPHILS (test code 3.84 K/UL = 1066) ABSOLUTE LYMPHOCYTES (test code 2.66 K/UL = 1067) ABSOLUTE MONOCYTES (test code = 0.40 K/UL 1068) ABSOLUTE EOSINOPHILS (test code 0.23 K/UL = 1040) ABSOLUTE BASOPHILS (test code = 0.04 K/UL 1069) ABS IMMATURE GRANULOCYTES (test 0.02 K/UL code = 1020) ABS NUCLEATED RBCS (test code = 0.00 K/UL 64367) CBC W/AUTO [id number] 00:00:00 Test Item Value Reference Range Interpretation Comments WBC (test code = 1001) 7.2 K/UL RBC (test code = 1002) 4.65 M/UL HEMOGLOBIN (test code = 1003) 13.4 G/DL HEMATOCRIT (test code = 1004) 38.6 % MCV (test code = 1005) 83.0 fL MCH (test code = 1006) 28.8 PG MCHC (test code = 1007) 34.7 G/DL RDW (test code = 1038) 14.3 % NEUTROPHILS (test code = 1008) 53.3 % LYMPHOCYTES (test code = 1010) 37.0 % MONOCYTES (test code = 1011) 5.6 % EOSINOPHILS (test code = 1012) 3.2 % BASOPHILS (test code = 1013) 0.6 % IMMATURE GRANULOCYTES (test 0.3 % code = 1036) NUCLEATED RBCS (test code = 0.0 /100WBC'S 1065) PLATELET COUNT (test code = 251 K/UL 1015) ABSOLUTE NEUTROPHILS (test code 3.84 K/UL = 1066) ABSOLUTE LYMPHOCYTES (test code 2.66 K/UL = 1067) ABSOLUTE MONOCYTES (test code = 0.40 K/UL 1068) ABSOLUTE EOSINOPHILS (test code 0.23 K/UL = 1040) ABSOLUTE BASOPHILS (test code = 0.04 K/UL 1069) ABS IMMATURE GRANULOCYTES (test 0.02 K/UL code = 1020) ABS NUCLEATED RBCS (test code = 0.00 K/UL 96504) COMPREHENSIVE METABOLIC [id number] 00:00:00 Test Item Value Reference Range Interpretation Comments GLUCOSE (test code = 2217) 90 MG/DL BUN (test code = 2208) 12 MG/DL CREATININE (test code = 2214) 0.66 MG/DL eGFR (2020 CKD-EPI) (test 114 ML/MIN/1.73 code = 64768) CALC BUN/CREAT (test code = 18 RATIO 2235) SODIUM (test code = 2231) 138 MEQ/L POTASSIUM (test code = 2228) 4.4 MEQ/L CHLORIDE (test code = 2215) 101 MEQ/L CARBON DIOXIDE (test code = 22 MEQ/L 2206) CALCIUM (test code = 2209) 9.6 MG/DL PROTEIN, TOTAL (test code = 7.4 G/DL 222) ALBUMIN (test code = 2201) 4.4 G/DL CALC GLOBULIN (test code = 3.0 G/DL 2240) CALC A/G RATIO (test code = 1.5 RATIO 2234) BILIRUBIN, TOTAL (test code = <0.2 MG/DL 220) ALKALINE PHOSPHATASE (test 88 U/L code = 2204) AST (test code = 2218) 17 U/L ALT (test code = 2219) 16 U/L COMPREHENSIVE METABOLIC [id number] 00:00:00 Test Item Value Reference Range Interpretation Comments GLUCOSE (test code = 2217) 90 MG/DL BUN (test code = 2208) 12 MG/DL CREATININE (test code = 2214) 0.66 MG/DL eGFR (2020 CKD-EPI) (test 114 ML/MIN/1.73 code = 07433) CALC BUN/CREAT (test code = 18 RATIO 2234) SODIUM (test code = 2231) 138 MEQ/L POTASSIUM (test code = 2228) 4.4 MEQ/L CHLORIDE (test code = 2215) 101 MEQ/L CARBON DIOXIDE (test code = 22 MEQ/L 2205) CALCIUM (test code = 2209) 9.6 MG/DL PROTEIN, TOTAL (test code = 7.4 G/DL 2228) ALBUMIN (test code = 2201) 4.4 G/DL CALC GLOBULIN (test code = 3.0 G/DL 2239) CALC A/G RATIO (test code = 1.5 RATIO 2233) BILIRUBIN, TOTAL (test code = <0.2 MG/DL 2206) ALKALINE PHOSPHATASE (test 88 U/L code = 2204) AST (test code = 2218) 17 U/L ALT (test code = 2219) 16 U/L [id number] 00:00:00 Test Item Value Reference Range Interpretation Comments TSH, THIRD GENERATION (test code 0.651 UIU/ML = 2821) [id number] 00:00:00 Test Item Value Reference Range Interpretation Comments TSH, THIRD GENERATION (test code 0.651 UIU/ML = 2821) [id number] 00:00:00 Test Item Value Reference Range Interpretation Comments TSH, THIRD GENERATION (test code 0.651 UIU/ML = 2821) LIVER (HEPATIC) FUNCTION [id number] 00:00:00 Test Item Value Reference Range Interpretation Comments PROTEIN, TOTAL (test code = 2229) 7.4 G/DL ALBUMIN (test code = 2201) 4.4 G/DL BILIRUBIN, TOTAL (test code = <0.2 MG/DL 2206) BILIRUBIN, DIRECT (test code = <0.2 MG/DL 2021) ALKALINE PHOSPHATASE (test code = 88 U/L 2203) AST (test code = 2218) 17 U/L ALT (test code = 2219) 16 U/L LIVER (HEPATIC) FUNCTION [id number] 00:00:00 Test Item Value Reference Range Interpretation Comments PROTEIN, TOTAL (test code = 2229) 7.4 G/DL ALBUMIN (test code = 2201) 4.4 G/DL BILIRUBIN, TOTAL (test code = <0.2 MG/DL 2206) BILIRUBIN, DIRECT (test code = <0.2 MG/DL 2021) ALKALINE PHOSPHATASE (test code = 88 U/L 2203) AST (test code = 2218) 17 U/L ALT (test code = 2219) 16 U/L HEMOGLOBIN [id number] 00:00:00 Test Item Value Reference Range Interpretation Comments HEMOGLOBIN A1c (test code = 98026) 5.8 % HEMOGLOBIN [id number] 00:00:00 Test Item Value Reference Range Interpretation Comments HEMOGLOBIN A1c (test code = 61670) 5.8 % HEMOGLOBIN [id number] 00:00:00 Test Item Value Reference Range Interpretation Comments HEMOGLOBIN A1c (test code = 05960) 5.8 % CBC W/AUTO [id number] 00:00:00 Test Item Value Reference Range Interpretation Comments WBC (test code = 1001) 7.2 K/UL RBC (test code = 1002) 4.65 M/UL HEMOGLOBIN (test code = 1003) 13.4 G/DL HEMATOCRIT (test code = 1004) 38.6 % MCV (test code = 1005) 83.0 fL MCH (test code = 1006) 28.8 PG MCHC (test code = 1007) 34.7 G/DL RDW (test code = 1038) 14.3 % NEUTROPHILS (test code = 1008) 53.3 % LYMPHOCYTES (test code = 1010) 37.0 % MONOCYTES (test code = 1011) 5.6 % EOSINOPHILS (test code = 1012) 3.2 % BASOPHILS (test code = 1013) 0.6 % IMMATURE GRANULOCYTES (test 0.3 % code = 1036) NUCLEATED RBCS (test code = 0.0 /100WBC'S 1065) PLATELET COUNT (test code = 251 K/UL 1015) ABSOLUTE NEUTROPHILS (test code 3.84 K/UL = 1066) ABSOLUTE LYMPHOCYTES (test code 2.66 K/UL = 1067) ABSOLUTE MONOCYTES (test code = 0.40 K/UL 1068) ABSOLUTE EOSINOPHILS (test code 0.23 K/UL = 1040) ABSOLUTE BASOPHILS (test code = 0.04 K/UL 1069) ABS IMMATURE GRANULOCYTES (test 0.02 K/UL code = 1020) ABS NUCLEATED RBCS (test code = 0.00 K/UL 59264) CBC W/AUTO [id number] 00:00:00 Test Item Value Reference Range Interpretation Comments WBC (test code = 1001) 7.2 K/UL RBC (test code = 1002) 4.65 M/UL HEMOGLOBIN (test code = 1003) 13.4 G/DL HEMATOCRIT (test code = 1004) 38.6 % MCV (test code = 1005) 83.0 fL MCH (test code = 1006) 28.8 PG MCHC (test code = 1007) 34.7 G/DL RDW (test code = 1038) 14.3 % NEUTROPHILS (test code = 1008) 53.3 % LYMPHOCYTES (test code = 1010) 37.0 % MONOCYTES (test code = 1011) 5.6 % EOSINOPHILS (test code = 1012) 3.2 % BASOPHILS (test code = 1013) 0.6 % IMMATURE GRANULOCYTES (test 0.3 % code = 1036) NUCLEATED RBCS (test code = 0.0 /100WBC'S 1065) PLATELET COUNT (test code = 251 K/UL 1015) ABSOLUTE NEUTROPHILS (test code 3.84 K/UL = 1066) ABSOLUTE LYMPHOCYTES (test code 2.66 K/UL = 1067) ABSOLUTE MONOCYTES (test code = 0.40 K/UL 1068) ABSOLUTE EOSINOPHILS (test code 0.23 K/UL = 1040) ABSOLUTE BASOPHILS (test code = 0.04 K/UL 1069) ABS IMMATURE GRANULOCYTES (test 0.02 K/UL code = 1020) ABS NUCLEATED RBCS (test code = 0.00 K/UL 29759) CBC W/AUTO [id number] 00:00:00 Test Item Value Reference Range Interpretation Comments WBC (test code = 1001) 7.2 K/UL RBC (test code = 1002) 4.65 M/UL HEMOGLOBIN (test code = 1003) 13.4 G/DL HEMATOCRIT (test code = 1004) 38.6 % MCV (test code = 1005) 83.0 fL MCH (test code = 1006) 28.8 PG MCHC (test code = 1007) 34.7 G/DL RDW (test code = 1038) 14.3 % NEUTROPHILS (test code = 1008) 53.3 % LYMPHOCYTES (test code = 1010) 37.0 % MONOCYTES (test code = 1011) 5.6 % EOSINOPHILS (test code = 1012) 3.2 % BASOPHILS (test code = 1013) 0.6 % IMMATURE GRANULOCYTES (test 0.3 % code = 1036) NUCLEATED RBCS (test code = 0.0 /100WBC'S 1065) PLATELET COUNT (test code = 251 K/UL 1015) ABSOLUTE NEUTROPHILS (test code 3.84 K/UL = 1066) ABSOLUTE LYMPHOCYTES (test code 2.66 K/UL = 1067) ABSOLUTE MONOCYTES (test code = 0.40 K/UL 1068) ABSOLUTE EOSINOPHILS (test code 0.23 K/UL = 1040) ABSOLUTE BASOPHILS (test code = 0.04 K/UL 1069) ABS IMMATURE GRANULOCYTES (test 0.02 K/UL code = 1020) ABS NUCLEATED RBCS (test code = 0.00 K/UL 58259) COMPREHENSIVE METABOLIC [id number] 00:00:00 Test Item Value Reference Range Interpretation Comments GLUCOSE (test code = 2217) 90 MG/DL BUN (test code = 2208) 12 MG/DL CREATININE (test code = 2214) 0.66 MG/DL eGFR (2020 CKD-EPI) (test 114 ML/MIN/1.73 code = 85220) CALC BUN/CREAT (test code = 18 RATIO 2235) SODIUM (test code = 2231) 138 MEQ/L POTASSIUM (test code = 2228) 4.4 MEQ/L CHLORIDE (test code = 2215) 101 MEQ/L CARBON DIOXIDE (test code = 22 MEQ/L 220) CALCIUM (test code = 2209) 9.6 MG/DL PROTEIN, TOTAL (test code = 7.4 G/DL 2228) ALBUMIN (test code = 2201) 4.4 G/DL CALC GLOBULIN (test code = 3.0 G/DL 2240) CALC A/G RATIO (test code = 1.5 RATIO 2234) BILIRUBIN, TOTAL (test code = <0.2 MG/DL 2206) ALKALINE PHOSPHATASE (test 88 U/L code = 2204) AST (test code = 2218) 17 U/L ALT (test code = 2219) 16 U/L COMPREHENSIVE METABOLIC [id number] 00:00:00 Test Item Value Reference Range Interpretation Comments GLUCOSE (test code = 2217) 90 MG/DL BUN (test code = 2208) 12 MG/DL CREATININE (test code = 2214) 0.66 MG/DL eGFR (2020 CKD-EPI) (test 114 ML/MIN/1.73 code = 66746) CALC BUN/CREAT (test code = 18 RATIO 223) SODIUM (test code = 2231) 138 MEQ/L POTASSIUM (test code = 2228) 4.4 MEQ/L CHLORIDE (test code = 2215) 101 MEQ/L CARBON DIOXIDE (test code = 22 MEQ/L 2205) CALCIUM (test code = 2209) 9.6 MG/DL PROTEIN, TOTAL (test code = 7.4 G/DL 2228) ALBUMIN (test code = 220) 4.4 G/DL CALC GLOBULIN (test code = 3.0 G/DL 2239) CALC A/G RATIO (test code = 1.5 RATIO 2233) BILIRUBIN, TOTAL (test code = <0.2 MG/DL 2206) ALKALINE PHOSPHATASE (test 88 U/L code = 2204) AST (test code = 2218) 17 U/L ALT (test code = 2219) 16 U/L [id number] 00:00:00 Test Item Value Reference Range Interpretation Comments TSH, THIRD GENERATION (test code 0.651 UIU/ML = 2821) [id number] 00:00:00 Test Item Value Reference Range Interpretation Comments TSH, THIRD GENERATION (test code 0.651 UIU/ML = 2821) [id number] 00:00:00 Test Item Value Reference Range Interpretation Comments TSH, THIRD GENERATION (test code 0.651 UIU/ML = 2821) LIVER (HEPATIC) FUNCTION [id number] 00:00:00 Test Item Value Reference Range Interpretation Comments PROTEIN, TOTAL (test code = 2229) 7.4 G/DL ALBUMIN (test code = 2201) 4.4 G/DL BILIRUBIN, TOTAL (test code = <0.2 MG/DL 2206) BILIRUBIN, DIRECT (test code = <0.2 MG/DL 2021) ALKALINE PHOSPHATASE (test code = 88 U/L 2203) AST (test code = 2218) 17 U/L ALT (test code = 2219) 16 U/L LIVER (HEPATIC) FUNCTION [id number] 00:00:00 Test Item Value Reference Range Interpretation Comments PROTEIN, TOTAL (test code = 2229) 7.4 G/DL ALBUMIN (test code = 2201) 4.4 G/DL BILIRUBIN, TOTAL (test code = <0.2 MG/DL 2206) BILIRUBIN, DIRECT (test code = <0.2 MG/DL 2021) ALKALINE PHOSPHATASE (test code = 88 U/L 2203) AST (test code = 2218) 17 U/L ALT (test code = 2219) 16 U/L HEMOGLOBIN [id number] 00:00:00 Test Item Value Reference Range Interpretation Comments HEMOGLOBIN A1c (test code = 46191) 5.8 % HEMOGLOBIN [id number] 00:00:00 Test Item Value Reference Range Interpretation Comments HEMOGLOBIN A1c (test code = 21618) 5.8 % HEMOGLOBIN [id number] 00:00:00 Test Item Value Reference Range Interpretation Comments HEMOGLOBIN A1c (test code = 45592) 5.8 % CBC W/AUTO [id number] 00:00:00 Test Item Value Reference Range Interpretation Comments WBC (test code = 1001) 7.2 K/UL RBC (test code = 1002) 4.65 M/UL HEMOGLOBIN (test code = 1003) 13.4 G/DL HEMATOCRIT (test code = 1004) 38.6 % MCV (test code = 1005) 83.0 fL MCH (test code = 1006) 28.8 PG MCHC (test code = 1007) 34.7 G/DL RDW (test code = 1038) 14.3 % NEUTROPHILS (test code = 1008) 53.3 % LYMPHOCYTES (test code = 1010) 37.0 % MONOCYTES (test code = 1011) 5.6 % EOSINOPHILS (test code = 1012) 3.2 % BASOPHILS (test code = 1013) 0.6 % IMMATURE GRANULOCYTES (test 0.3 % code = 1036) NUCLEATED RBCS (test code = 0.0 /100WBC'S 1065) PLATELET COUNT (test code = 251 K/UL 1015) ABSOLUTE NEUTROPHILS (test code 3.84 K/UL = 1066) ABSOLUTE LYMPHOCYTES (test code 2.66 K/UL = 1067) ABSOLUTE MONOCYTES (test code = 0.40 K/UL 1068) ABSOLUTE EOSINOPHILS (test code 0.23 K/UL = 1040) ABSOLUTE BASOPHILS (test code = 0.04 K/UL 1069) ABS IMMATURE GRANULOCYTES (test 0.02 K/UL code = 1020) ABS NUCLEATED RBCS (test code = 0.00 K/UL 38898) CBC W/AUTO [id number] 00:00:00 Test Item Value Reference Range Interpretation Comments WBC (test code = 1001) 7.2 K/UL RBC (test code = 1002) 4.65 M/UL HEMOGLOBIN (test code = 1003) 13.4 G/DL HEMATOCRIT (test code = 1004) 38.6 % MCV (test code = 1005) 83.0 fL MCH (test code = 1006) 28.8 PG MCHC (test code = 1007) 34.7 G/DL RDW (test code = 1038) 14.3 % NEUTROPHILS (test code = 1008) 53.3 % LYMPHOCYTES (test code = 1010) 37.0 % MONOCYTES (test code = 1011) 5.6 % EOSINOPHILS (test code = 1012) 3.2 % BASOPHILS (test code = 1013) 0.6 % IMMATURE GRANULOCYTES (test 0.3 % code = 1036) NUCLEATED RBCS (test code = 0.0 /100WBC'S 1065) PLATELET COUNT (test code = 251 K/UL 1015) ABSOLUTE NEUTROPHILS (test code 3.84 K/UL = 1066) ABSOLUTE LYMPHOCYTES (test code 2.66 K/UL = 1067) ABSOLUTE MONOCYTES (test code = 0.40 K/UL 1068) ABSOLUTE EOSINOPHILS (test code 0.23 K/UL = 1040) ABSOLUTE BASOPHILS (test code = 0.04 K/UL 1069) ABS IMMATURE GRANULOCYTES (test 0.02 K/UL code = 1020) ABS NUCLEATED RBCS (test code = 0.00 K/UL 78984) CBC W/AUTO [id number] 00:00:00 Test Item Value Reference Range Interpretation Comments WBC (test code = 1001) 7.2 K/UL RBC (test code = 1002) 4.65 M/UL HEMOGLOBIN (test code = 1003) 13.4 G/DL HEMATOCRIT (test code = 1004) 38.6 % MCV (test code = 1005) 83.0 fL MCH (test code = 1006) 28.8 PG MCHC (test code = 1007) 34.7 G/DL RDW (test code = 1038) 14.3 % NEUTROPHILS (test code = 1008) 53.3 % LYMPHOCYTES (test code = 1010) 37.0 % MONOCYTES (test code = 1011) 5.6 % EOSINOPHILS (test code = 1012) 3.2 % BASOPHILS (test code = 1013) 0.6 % IMMATURE GRANULOCYTES (test 0.3 % code = 1036) NUCLEATED RBCS (test code = 0.0 /100WBC'S 1065) PLATELET COUNT (test code = 251 K/UL 1015) ABSOLUTE NEUTROPHILS (test code 3.84 K/UL = 1066) ABSOLUTE LYMPHOCYTES (test code 2.66 K/UL = 1067) ABSOLUTE MONOCYTES (test code = 0.40 K/UL 1068) ABSOLUTE EOSINOPHILS (test code 0.23 K/UL = 1040) ABSOLUTE BASOPHILS (test code = 0.04 K/UL 1069) ABS IMMATURE GRANULOCYTES (test 0.02 K/UL code = 1020) ABS NUCLEATED RBCS (test code = 0.00 K/UL 29655) COMPREHENSIVE METABOLIC [id number] 00:00:00 Test Item Value Reference Range Interpretation Comments GLUCOSE (test code = 2217) 90 MG/DL BUN (test code = 2208) 12 MG/DL CREATININE (test code = 2214) 0.66 MG/DL eGFR (2020 CKD-EPI) (test 114 ML/MIN/1.73 code = 27309) CALC BUN/CREAT (test code = 18 RATIO 2235) SODIUM (test code = 2231) 138 MEQ/L POTASSIUM (test code = 2228) 4.4 MEQ/L CHLORIDE (test code = 2215) 101 MEQ/L CARBON DIOXIDE (test code = 22 MEQ/L 2206) CALCIUM (test code = 2209) 9.6 MG/DL PROTEIN, TOTAL (test code = 7.4 G/DL 222) ALBUMIN (test code = 2201) 4.4 G/DL CALC GLOBULIN (test code = 3.0 G/DL 2240) CALC A/G RATIO (test code = 1.5 RATIO 2234) BILIRUBIN, TOTAL (test code = <0.2 MG/DL 2207) ALKALINE PHOSPHATASE (test 88 U/L code = 2204) AST (test code = 2218) 17 U/L ALT (test code = 2219) 16 U/L COMPREHENSIVE METABOLIC [id number] 00:00:00 Test Item Value Reference Range Interpretation Comments GLUCOSE (test code = 2217) 90 MG/DL BUN (test code = 2208) 12 MG/DL CREATININE (test code = 2214) 0.66 MG/DL eGFR (2020 CKD-EPI) (test 114 ML/MIN/1.73 code = 65339) CALC BUN/CREAT (test code = 18 RATIO 2235) SODIUM (test code = 2231) 138 MEQ/L POTASSIUM (test code = 2228) 4.4 MEQ/L CHLORIDE (test code = 2215) 101 MEQ/L CARBON DIOXIDE (test code = 22 MEQ/L 2205) CALCIUM (test code = 220) 9.6 MG/DL PROTEIN, TOTAL (test code = 7.4 G/DL 2228) ALBUMIN (test code = 220) 4.4 G/DL CALC GLOBULIN (test code = 3.0 G/DL 2239) CALC A/G RATIO (test code = 1.5 RATIO 2233) BILIRUBIN, TOTAL (test code = <0.2 MG/DL 2206) ALKALINE PHOSPHATASE (test 88 U/L code = 2204) AST (test code = 2218) 17 U/L ALT (test code = 2219) 16 U/L [id number] 00:00:00 Test Item Value Reference Range Interpretation Comments TSH, THIRD GENERATION (test code 0.651 UIU/ML = 2821) [id number] 00:00:00 Test Item Value Reference Range Interpretation Comments TSH, THIRD GENERATION (test code 0.651 UIU/ML = 2821) [id number] 00:00:00 Test Item Value Reference Range Interpretation Comments TSH, THIRD GENERATION (test code 0.651 UIU/ML = 2821) LIVER (HEPATIC) FUNCTION [id number] 00:00:00 Test Item Value Reference Range Interpretation Comments PROTEIN, TOTAL (test code = 2229) 7.4 G/DL ALBUMIN (test code = 2201) 4.4 G/DL BILIRUBIN, TOTAL (test code = <0.2 MG/DL 2206) BILIRUBIN, DIRECT (test code = <0.2 MG/DL 2021) ALKALINE PHOSPHATASE (test code = 88 U/L 2203) AST (test code = 2218) 17 U/L ALT (test code = 2219) 16 U/L LIVER (HEPATIC) FUNCTION [id number] 00:00:00 Test Item Value Reference Range Interpretation Comments PROTEIN, TOTAL (test code = 2229) 7.4 G/DL ALBUMIN (test code = 2201) 4.4 G/DL BILIRUBIN, TOTAL (test code = <0.2 MG/DL 2206) BILIRUBIN, DIRECT (test code = <0.2 MG/DL 2021) ALKALINE PHOSPHATASE (test code = 88 U/L 2203) AST (test code = 2218) 17 U/L ALT (test code = 2219) 16 U/L HEMOGLOBIN [id number] 00:00:00 Test Item Value Reference Range Interpretation Comments HEMOGLOBIN A1c (test code = 78757) 5.8 % HEMOGLOBIN [id number] 00:00:00 Test Item Value Reference Range Interpretation Comments HEMOGLOBIN A1c (test code = 24621) 5.8 % HEMOGLOBIN [id number] 00:00:00 Test Item Value Reference Range Interpretation Comments HEMOGLOBIN A1c (test code = 51993) 5.8 % CBC W/AUTO [id number] 00:00:00 Test Item Value Reference Range Interpretation Comments WBC (test code = 1001) 7.2 K/UL RBC (test code = 1002) 4.65 M/UL HEMOGLOBIN (test code = 1003) 13.4 G/DL HEMATOCRIT (test code = 1004) 38.6 % MCV (test code = 1005) 83.0 fL MCH (test code = 1006) 28.8 PG MCHC (test code = 1007) 34.7 G/DL RDW (test code = 1038) 14.3 % NEUTROPHILS (test code = 1008) 53.3 % LYMPHOCYTES (test code = 1010) 37.0 % MONOCYTES (test code = 1011) 5.6 % EOSINOPHILS (test code = 1012) 3.2 % BASOPHILS (test code = 1013) 0.6 % IMMATURE GRANULOCYTES (test 0.3 % code = 1036) NUCLEATED RBCS (test code = 0.0 /100WBC'S 1065) PLATELET COUNT (test code = 251 K/UL 1015) ABSOLUTE NEUTROPHILS (test code 3.84 K/UL = 1066) ABSOLUTE LYMPHOCYTES (test code 2.66 K/UL = 1067) ABSOLUTE MONOCYTES (test code = 0.40 K/UL 1068) ABSOLUTE EOSINOPHILS (test code 0.23 K/UL = 1040) ABSOLUTE BASOPHILS (test code = 0.04 K/UL 1069) ABS IMMATURE GRANULOCYTES (test 0.02 K/UL code = 1020) ABS NUCLEATED RBCS (test code = 0.00 K/UL 91003) CBC W/AUTO [id number] 00:00:00 Test Item Value Reference Range Interpretation Comments WBC (test code = 1001) 7.2 K/UL RBC (test code = 1002) 4.65 M/UL HEMOGLOBIN (test code = 1003) 13.4 G/DL HEMATOCRIT (test code = 1004) 38.6 % MCV (test code = 1005) 83.0 fL MCH (test code = 1006) 28.8 PG MCHC (test code = 1007) 34.7 G/DL RDW (test code = 1038) 14.3 % NEUTROPHILS (test code = 1008) 53.3 % LYMPHOCYTES (test code = 1010) 37.0 % MONOCYTES (test code = 1011) 5.6 % EOSINOPHILS (test code = 1012) 3.2 % BASOPHILS (test code = 1013) 0.6 % IMMATURE GRANULOCYTES (test 0.3 % code = 1036) NUCLEATED RBCS (test code = 0.0 /100WBC'S 1065) PLATELET COUNT (test code = 251 K/UL 1015) ABSOLUTE NEUTROPHILS (test code 3.84 K/UL = 1066) ABSOLUTE LYMPHOCYTES (test code 2.66 K/UL = 1067) ABSOLUTE MONOCYTES (test code = 0.40 K/UL 1068) ABSOLUTE EOSINOPHILS (test code 0.23 K/UL = 1040) ABSOLUTE BASOPHILS (test code = 0.04 K/UL 1069) ABS IMMATURE GRANULOCYTES (test 0.02 K/UL code = 1020) ABS NUCLEATED RBCS (test code = 0.00 K/UL 33011) CBC W/AUTO [id number] 00:00:00 Test Item Value Reference Range Interpretation Comments WBC (test code = 1001) 7.2 K/UL RBC (test code = 1002) 4.65 M/UL HEMOGLOBIN (test code = 1003) 13.4 G/DL HEMATOCRIT (test code = 1004) 38.6 % MCV (test code = 1005) 83.0 fL MCH (test code = 1006) 28.8 PG MCHC (test code = 1007) 34.7 G/DL RDW (test code = 1038) 14.3 % NEUTROPHILS (test code = 1008) 53.3 % LYMPHOCYTES (test code = 1010) 37.0 % MONOCYTES (test code = 1011) 5.6 % EOSINOPHILS (test code = 1012) 3.2 % BASOPHILS (test code = 1013) 0.6 % IMMATURE GRANULOCYTES (test 0.3 % code = 1036) NUCLEATED RBCS (test code = 0.0 /100WBC'S 1065) PLATELET COUNT (test code = 251 K/UL 1015) ABSOLUTE NEUTROPHILS (test code 3.84 K/UL = 1066) ABSOLUTE LYMPHOCYTES (test code 2.66 K/UL = 1067) ABSOLUTE MONOCYTES (test code = 0.40 K/UL 1068) ABSOLUTE EOSINOPHILS (test code 0.23 K/UL = 1040) ABSOLUTE BASOPHILS (test code = 0.04 K/UL 1069) ABS IMMATURE GRANULOCYTES (test 0.02 K/UL code = 1020) ABS NUCLEATED RBCS (test code = 0.00 K/UL 05856) COMPREHENSIVE METABOLIC [id number] 00:00:00 Test Item Value Reference Range Interpretation Comments GLUCOSE (test code = 2217) 90 MG/DL BUN (test code = 2208) 12 MG/DL CREATININE (test code = 2214) 0.66 MG/DL eGFR (2020 CKD-EPI) (test 114 ML/MIN/1.73 code = 69759) CALC BUN/CREAT (test code = 18 RATIO 2235) SODIUM (test code = 2231) 138 MEQ/L POTASSIUM (test code = 2228) 4.4 MEQ/L CHLORIDE (test code = 2215) 101 MEQ/L CARBON DIOXIDE (test code = 22 MEQ/L 2205) CALCIUM (test code = 2209) 9.6 MG/DL PROTEIN, TOTAL (test code = 7.4 G/DL 2228) ALBUMIN (test code = 2201) 4.4 G/DL CALC GLOBULIN (test code = 3.0 G/DL 2240) CALC A/G RATIO (test code = 1.5 RATIO 2234) BILIRUBIN, TOTAL (test code = <0.2 MG/DL 2206) ALKALINE PHOSPHATASE (test 88 U/L code = 2204) AST (test code = 2218) 17 U/L ALT (test code = 2219) 16 U/L COMPREHENSIVE METABOLIC [id number] 00:00:00 Test Item Value Reference Range Interpretation Comments GLUCOSE (test code = 2217) 90 MG/DL BUN (test code = 2208) 12 MG/DL CREATININE (test code = 2214) 0.66 MG/DL eGFR (2020 CKD-EPI) (test 114 ML/MIN/1.73 code = 78343) CALC BUN/CREAT (test code = 18 RATIO 2235) SODIUM (test code = 2231) 138 MEQ/L POTASSIUM (test code = 2228) 4.4 MEQ/L CHLORIDE (test code = 2215) 101 MEQ/L CARBON DIOXIDE (test code = 22 MEQ/L 2205) CALCIUM (test code = 2209) 9.6 MG/DL PROTEIN, TOTAL (test code = 7.4 G/DL 2228) ALBUMIN (test code = 2201) 4.4 G/DL CALC GLOBULIN (test code = 3.0 G/DL 2239) CALC A/G RATIO (test code = 1.5 RATIO 2233) BILIRUBIN, TOTAL (test code = <0.2 MG/DL 2206) ALKALINE PHOSPHATASE (test 88 U/L code = 2204) AST (test code = 2218) 17 U/L ALT (test code = 2219) 16 U/L [id number] 00:00:00 Test Item Value Reference Range Interpretation Comments TSH, THIRD GENERATION (test code 0.651 UIU/ML = 2821) [id number] 00:00:00 Test Item Value Reference Range Interpretation Comments TSH, THIRD GENERATION (test code 0.651 UIU/ML = 2821) [id number] 00:00:00 Test Item Value Reference Range Interpretation Comments TSH, THIRD GENERATION (test code 0.651 UIU/ML = 2821) LIVER (HEPATIC) FUNCTION [id number] 00:00:00 Test Item Value Reference Range Interpretation Comments PROTEIN, TOTAL (test code = 2229) 7.4 G/DL ALBUMIN (test code = 2201) 4.4 G/DL BILIRUBIN, TOTAL (test code = <0.2 MG/DL 2206) BILIRUBIN, DIRECT (test code = <0.2 MG/DL 2021) ALKALINE PHOSPHATASE (test code = 88 U/L 2203) AST (test code = 2218) 17 U/L ALT (test code = 2219) 16 U/L LIVER (HEPATIC) FUNCTION [id number] 00:00:00 Test Item Value Reference Range Interpretation Comments PROTEIN, TOTAL (test code = 2229) 7.4 G/DL ALBUMIN (test code = 2201) 4.4 G/DL BILIRUBIN, TOTAL (test code = <0.2 MG/DL 2206) BILIRUBIN, DIRECT (test code = <0.2 MG/DL 2021) ALKALINE PHOSPHATASE (test code = 88 U/L 2203) AST (test code = 2218) 17 U/L ALT (test code = 2219) 16 U/L HEMOGLOBIN [id number] 00:00:00 Test Item Value Reference Range Interpretation Comments HEMOGLOBIN A1c (test code = 78587) 5.8 % HEMOGLOBIN [id number] 00:00:00 Test Item Value Reference Range Interpretation Comments HEMOGLOBIN A1c (test code = 10917) 5.8 % CBC W/AUTO [id number] 00:00:00 Test Item Value Reference Range Interpretation Comments WBC (test code = 1001) 7.2 K/UL RBC (test code = 1002) 4.65 M/UL HEMOGLOBIN (test code = 1003) 13.4 G/DL HEMATOCRIT (test code = 1004) 38.6 % MCV (test code = 1005) 83.0 fL MCH (test code = 1006) 28.8 PG MCHC (test code = 1007) 34.7 G/DL RDW (test code = 1038) 14.3 % NEUTROPHILS (test code = 1008) 53.3 % LYMPHOCYTES (test code = 1010) 37.0 % MONOCYTES (test code = 1011) 5.6 % EOSINOPHILS (test code = 1012) 3.2 % BASOPHILS (test code = 1013) 0.6 % IMMATURE GRANULOCYTES (test 0.3 % code = 1036) NUCLEATED RBCS (test code = 0.0 /100WBC'S 1065) PLATELET COUNT (test code = 251 K/UL 1015) ABSOLUTE NEUTROPHILS (test code 3.84 K/UL = 1066) ABSOLUTE LYMPHOCYTES (test code 2.66 K/UL = 1067) ABSOLUTE MONOCYTES (test code = 0.40 K/UL 1068) ABSOLUTE EOSINOPHILS (test code 0.23 K/UL = 1040) ABSOLUTE BASOPHILS (test code = 0.04 K/UL 1069) ABS IMMATURE GRANULOCYTES (test 0.02 K/UL code = 1020) ABS NUCLEATED RBCS (test code = 0.00 K/UL 39693) CBC W/AUTO [id number] 00:00:00 Test Item Value Reference Range Interpretation Comments WBC (test code = 1001) 7.2 K/UL RBC (test code = 1002) 4.65 M/UL HEMOGLOBIN (test code = 1003) 13.4 G/DL HEMATOCRIT (test code = 1004) 38.6 % MCV (test code = 1005) 83.0 fL MCH (test code = 1006) 28.8 PG MCHC (test code = 1007) 34.7 G/DL RDW (test code = 1038) 14.3 % NEUTROPHILS (test code = 1008) 53.3 % LYMPHOCYTES (test code = 1010) 37.0 % MONOCYTES (test code = 1011) 5.6 % EOSINOPHILS (test code = 1012) 3.2 % BASOPHILS (test code = 1013) 0.6 % IMMATURE GRANULOCYTES (test 0.3 % code = 1036) NUCLEATED RBCS (test code = 0.0 /100WBC'S 1065) PLATELET COUNT (test code = 251 K/UL 1015) ABSOLUTE NEUTROPHILS (test code 3.84 K/UL = 1066) ABSOLUTE LYMPHOCYTES (test code 2.66 K/UL = 1067) ABSOLUTE MONOCYTES (test code = 0.40 K/UL 1068) ABSOLUTE EOSINOPHILS (test code 0.23 K/UL = 1040) ABSOLUTE BASOPHILS (test code = 0.04 K/UL 1069) ABS IMMATURE GRANULOCYTES (test 0.02 K/UL code = 1020) ABS NUCLEATED RBCS (test code = 0.00 K/UL 31372) COMPREHENSIVE METABOLIC [id number] 00:00:00 Test Item Value Reference Range Interpretation Comments GLUCOSE (test code = 2217) 90 MG/DL BUN (test code = 2208) 12 MG/DL CREATININE (test code = 2214) 0.66 MG/DL eGFR (2020 CKD-EPI) (test 114 ML/MIN/1.73 code = 99423) CALC BUN/CREAT (test code = 18 RATIO 2235) SODIUM (test code = 2231) 138 MEQ/L POTASSIUM (test code = 2228) 4.4 MEQ/L CHLORIDE (test code = 2215) 101 MEQ/L CARBON DIOXIDE (test code = 22 MEQ/L 2205) CALCIUM (test code = 2209) 9.6 MG/DL PROTEIN, TOTAL (test code = 7.4 G/DL 2228) ALBUMIN (test code = 2201) 4.4 G/DL CALC GLOBULIN (test code = 3.0 G/DL 2239) CALC A/G RATIO (test code = 1.5 RATIO 2233) BILIRUBIN, TOTAL (test code = <0.2 MG/DL 2206) ALKALINE PHOSPHATASE (test 88 U/L code = 2204) AST (test code = 2218) 17 U/L ALT (test code = 2219) 16 U/L [id number] 00:00:00 Test Item Value Reference Range Interpretation Comments TSH, THIRD GENERATION (test code 0.651 UIU/ML = 2821) [id number] 00:00:00 Test Item Value Reference Range Interpretation Comments TSH, THIRD GENERATION (test code 0.651 UIU/ML = 2821) LIVER (HEPATIC) FUNCTION [id number] 00:00:00 Test Item Value Reference Range Interpretation Comments PROTEIN, TOTAL (test code = 2229) 7.4 G/DL ALBUMIN (test code = 2201) 4.4 G/DL BILIRUBIN, TOTAL (test code = <0.2 MG/DL 2206) BILIRUBIN, DIRECT (test code = <0.2 MG/DL 2021) ALKALINE PHOSPHATASE (test code = 88 U/L 2203) AST (test code = 2218) 17 U/L ALT (test code = 2219) 16 U/L HEMOGLOBIN [id number] 00:00:00 Test Item Value Reference Range Interpretation Comments HEMOGLOBIN A1c (test code = 49665) 5.8 % HEMOGLOBIN [id number] 00:00:00 Test Item Value Reference Range Interpretation Comments HEMOGLOBIN A1c (test code = 13447) 5.8 % HEMOGLOBIN [id number] 00:00:00 Test Item Value Reference Range Interpretation Comments HEMOGLOBIN A1c (test code = 95199) 5.8 % CBC W/AUTO [id number] 00:00:00 Test Item Value Reference Range Interpretation Comments WBC (test code = 1001) 7.2 K/UL RBC (test code = 1002) 4.65 M/UL HEMOGLOBIN (test code = 1003) 13.4 G/DL HEMATOCRIT (test code = 1004) 38.6 % MCV (test code = 1005) 83.0 fL MCH (test code = 1006) 28.8 PG MCHC (test code = 1007) 34.7 G/DL RDW (test code = 1038) 14.3 % NEUTROPHILS (test code = 1008) 53.3 % LYMPHOCYTES (test code = 1010) 37.0 % MONOCYTES (test code = 1011) 5.6 % EOSINOPHILS (test code = 1012) 3.2 % BASOPHILS (test code = 1013) 0.6 % IMMATURE GRANULOCYTES (test 0.3 % code = 1036) NUCLEATED RBCS (test code = 0.0 /100WBC'S 1065) PLATELET COUNT (test code = 251 K/UL 1015) ABSOLUTE NEUTROPHILS (test code 3.84 K/UL = 1066) ABSOLUTE LYMPHOCYTES (test code 2.66 K/UL = 1067) ABSOLUTE MONOCYTES (test code = 0.40 K/UL 1068) ABSOLUTE EOSINOPHILS (test code 0.23 K/UL = 1040) ABSOLUTE BASOPHILS (test code = 0.04 K/UL 1069) ABS IMMATURE GRANULOCYTES (test 0.02 K/UL code = 1020) ABS NUCLEATED RBCS (test code = 0.00 K/UL 48288) CBC W/AUTO [id number] 00:00:00 Test Item Value Reference Range Interpretation Comments WBC (test code = 1001) 7.2 K/UL RBC (test code = 1002) 4.65 M/UL HEMOGLOBIN (test code = 1003) 13.4 G/DL HEMATOCRIT (test code = 1004) 38.6 % MCV (test code = 1005) 83.0 fL MCH (test code = 1006) 28.8 PG MCHC (test code = 1007) 34.7 G/DL RDW (test code = 1038) 14.3 % NEUTROPHILS (test code = 1008) 53.3 % LYMPHOCYTES (test code = 1010) 37.0 % MONOCYTES (test code = 1011) 5.6 % EOSINOPHILS (test code = 1012) 3.2 % BASOPHILS (test code = 1013) 0.6 % IMMATURE GRANULOCYTES (test 0.3 % code = 1036) NUCLEATED RBCS (test code = 0.0 /100WBC'S 1065) PLATELET COUNT (test code = 251 K/UL 1015) ABSOLUTE NEUTROPHILS (test code 3.84 K/UL = 1066) ABSOLUTE LYMPHOCYTES (test code 2.66 K/UL = 1067) ABSOLUTE MONOCYTES (test code = 0.40 K/UL 1068) ABSOLUTE EOSINOPHILS (test code 0.23 K/UL = 1040) ABSOLUTE BASOPHILS (test code = 0.04 K/UL 1069) ABS IMMATURE GRANULOCYTES (test 0.02 K/UL code = 1020) ABS NUCLEATED RBCS (test code = 0.00 K/UL 79227) CBC W/AUTO [id number] 00:00:00 Test Item Value Reference Range Interpretation Comments WBC (test code = 1001) 7.2 K/UL RBC (test code = 1002) 4.65 M/UL HEMOGLOBIN (test code = 1003) 13.4 G/DL HEMATOCRIT (test code = 1004) 38.6 % MCV (test code = 1005) 83.0 fL MCH (test code = 1006) 28.8 PG MCHC (test code = 1007) 34.7 G/DL RDW (test code = 1038) 14.3 % NEUTROPHILS (test code = 1008) 53.3 % LYMPHOCYTES (test code = 1010) 37.0 % MONOCYTES (test code = 1011) 5.6 % EOSINOPHILS (test code = 1012) 3.2 % BASOPHILS (test code = 1013) 0.6 % IMMATURE GRANULOCYTES (test 0.3 % code = 1036) NUCLEATED RBCS (test code = 0.0 /100WBC'S 1065) PLATELET COUNT (test code = 251 K/UL 1015) ABSOLUTE NEUTROPHILS (test code 3.84 K/UL = 1066) ABSOLUTE LYMPHOCYTES (test code 2.66 K/UL = 1067) ABSOLUTE MONOCYTES (test code = 0.40 K/UL 1068) ABSOLUTE EOSINOPHILS (test code 0.23 K/UL = 1040) ABSOLUTE BASOPHILS (test code = 0.04 K/UL 1069) ABS IMMATURE GRANULOCYTES (test 0.02 K/UL code = 1020) ABS NUCLEATED RBCS (test code = 0.00 K/UL 81533) COMPREHENSIVE METABOLIC [id number] 00:00:00 Test Item Value Reference Range Interpretation Comments GLUCOSE (test code = 2217) 90 MG/DL BUN (test code = 2208) 12 MG/DL CREATININE (test code = 2214) 0.66 MG/DL eGFR (2020 CKD-EPI) (test 114 ML/MIN/1.73 code = 16430) CALC BUN/CREAT (test code = 18 RATIO 2235) SODIUM (test code = 2231) 138 MEQ/L POTASSIUM (test code = 2228) 4.4 MEQ/L CHLORIDE (test code = 2215) 101 MEQ/L CARBON DIOXIDE (test code = 22 MEQ/L 2206) CALCIUM (test code = 2209) 9.6 MG/DL PROTEIN, TOTAL (test code = 7.4 G/DL 2228) ALBUMIN (test code = 2201) 4.4 G/DL CALC GLOBULIN (test code = 3.0 G/DL 2240) CALC A/G RATIO (test code = 1.5 RATIO 2234) BILIRUBIN, TOTAL (test code = <0.2 MG/DL 2206) ALKALINE PHOSPHATASE (test 88 U/L code = 2204) AST (test code = 2218) 17 U/L ALT (test code = 2219) 16 U/L COMPREHENSIVE METABOLIC [id number] 00:00:00 Test Item Value Reference Range Interpretation Comments GLUCOSE (test code = 2217) 90 MG/DL BUN (test code = 2208) 12 MG/DL CREATININE (test code = 2214) 0.66 MG/DL eGFR (2020 CKD-EPI) (test 114 ML/MIN/1.73 code = 22680) CALC BUN/CREAT (test code = 18 RATIO 2235) SODIUM (test code = 2231) 138 MEQ/L POTASSIUM (test code = 2228) 4.4 MEQ/L CHLORIDE (test code = 2215) 101 MEQ/L CARBON DIOXIDE (test code = 22 MEQ/L 220) CALCIUM (test code = 2209) 9.6 MG/DL PROTEIN, TOTAL (test code = 7.4 G/DL 2228) ALBUMIN (test code = 2201) 4.4 G/DL CALC GLOBULIN (test code = 3.0 G/DL 2240) CALC A/G RATIO (test code = 1.5 RATIO 2234) BILIRUBIN, TOTAL (test code = <0.2 MG/DL 2206) ALKALINE PHOSPHATASE (test 88 U/L code = 2204) AST (test code = 2218) 17 U/L ALT (test code = 2219) 16 U/L [id number] 00:00:00 Test Item Value Reference Range Interpretation Comments TSH, THIRD GENERATION (test code 0.651 UIU/ML = 2821) [id number] 00:00:00 Test Item Value Reference Range Interpretation Comments TSH, THIRD GENERATION (test code 0.651 UIU/ML = 2821) [id number] 00:00:00 Test Item Value Reference Range Interpretation Comments TSH, THIRD GENERATION (test code 0.651 UIU/ML = 2821) LIVER (HEPATIC) FUNCTION [id number] 00:00:00 Test Item Value Reference Range Interpretation Comments PROTEIN, TOTAL (test code = 2229) 7.4 G/DL ALBUMIN (test code = 2201) 4.4 G/DL BILIRUBIN, TOTAL (test code = <0.2 MG/DL 2206) BILIRUBIN, DIRECT (test code = <0.2 MG/DL 2021) ALKALINE PHOSPHATASE (test code = 88 U/L 2203) AST (test code = 2218) 17 U/L ALT (test code = 2219) 16 U/L LIVER (HEPATIC) FUNCTION [id number] 00:00:00 Test Item Value Reference Range Interpretation Comments PROTEIN, TOTAL (test code = 2229) 7.4 G/DL ALBUMIN (test code = 2201) 4.4 G/DL BILIRUBIN, TOTAL (test code = <0.2 MG/DL 2206) BILIRUBIN, DIRECT (test code = <0.2 MG/DL 2021) ALKALINE PHOSPHATASE (test code = 88 U/L 4) AST (test code = 2218) 17 U/L ALT (test code = 2219) 16 U/L HEMOGLOBIN [id number] 00:00:00 Test Item Value Reference Range Interpretation Comments HEMOGLOBIN A1c (test code = 00426) 5.8 % HEMOGLOBIN [id number] 00:00:00 Test Item Value Reference Range Interpretation Comments HEMOGLOBIN A1c (test code = 02997) 5.8 % HEMOGLOBIN [id number] 00:00:00 Test Item Value Reference Range Interpretation Comments HEMOGLOBIN A1c (test code = 81269) 5.8 % CBC W/AUTO [id number] 00:00:00 Test Item Value Reference Range Interpretation Comments WBC (test code = 1001) 7.2 K/UL RBC (test code = 1002) 4.65 M/UL HEMOGLOBIN (test code = 1003) 13.4 G/DL HEMATOCRIT (test code = 1004) 38.6 % MCV (test code = 1005) 83.0 fL MCH (test code = 1006) 28.8 PG MCHC (test code = 1007) 34.7 G/DL RDW (test code = 1038) 14.3 % NEUTROPHILS (test code = 1008) 53.3 % LYMPHOCYTES (test code = 1010) 37.0 % MONOCYTES (test code = 1011) 5.6 % EOSINOPHILS (test code = 1012) 3.2 % BASOPHILS (test code = 1013) 0.6 % IMMATURE GRANULOCYTES (test 0.3 % code = 1036) NUCLEATED RBCS (test code = 0.0 /100WBC'S 1065) PLATELET COUNT (test code = 251 K/UL 1015) ABSOLUTE NEUTROPHILS (test code 3.84 K/UL = 1066) ABSOLUTE LYMPHOCYTES (test code 2.66 K/UL = 1067) ABSOLUTE MONOCYTES (test code = 0.40 K/UL 1068) ABSOLUTE EOSINOPHILS (test code 0.23 K/UL = 1040) ABSOLUTE BASOPHILS (test code = 0.04 K/UL 1069) ABS IMMATURE GRANULOCYTES (test 0.02 K/UL code = 1020) ABS NUCLEATED RBCS (test code = 0.00 K/UL 69667) CBC W/AUTO [id number] 00:00:00 Test Item Value Reference Range Interpretation Comments WBC (test code = 1001) 7.2 K/UL RBC (test code = 1002) 4.65 M/UL HEMOGLOBIN (test code = 1003) 13.4 G/DL HEMATOCRIT (test code = 1004) 38.6 % MCV (test code = 1005) 83.0 fL MCH (test code = 1006) 28.8 PG MCHC (test code = 1007) 34.7 G/DL RDW (test code = 1038) 14.3 % NEUTROPHILS (test code = 1008) 53.3 % LYMPHOCYTES (test code = 1010) 37.0 % MONOCYTES (test code = 1011) 5.6 % EOSINOPHILS (test code = 1012) 3.2 % BASOPHILS (test code = 1013) 0.6 % IMMATURE GRANULOCYTES (test 0.3 % code = 1036) NUCLEATED RBCS (test code = 0.0 /100WBC'S 1065) PLATELET COUNT (test code = 251 K/UL 1015) ABSOLUTE NEUTROPHILS (test code 3.84 K/UL = 1066) ABSOLUTE LYMPHOCYTES (test code 2.66 K/UL = 1067) ABSOLUTE MONOCYTES (test code = 0.40 K/UL 1068) ABSOLUTE EOSINOPHILS (test code 0.23 K/UL = 1040) ABSOLUTE BASOPHILS (test code = 0.04 K/UL 1069) ABS IMMATURE GRANULOCYTES (test 0.02 K/UL code = 1020) ABS NUCLEATED RBCS (test code = 0.00 K/UL 88022) CBC W/AUTO [id number] 00:00:00 Test Item Value Reference Range Interpretation Comments WBC (test code = 1001) 7.2 K/UL RBC (test code = 1002) 4.65 M/UL HEMOGLOBIN (test code = 1003) 13.4 G/DL HEMATOCRIT (test code = 1004) 38.6 % MCV (test code = 1005) 83.0 fL MCH (test code = 1006) 28.8 PG MCHC (test code = 1007) 34.7 G/DL RDW (test code = 1038) 14.3 % NEUTROPHILS (test code = 1008) 53.3 % LYMPHOCYTES (test code = 1010) 37.0 % MONOCYTES (test code = 1011) 5.6 % EOSINOPHILS (test code = 1012) 3.2 % BASOPHILS (test code = 1013) 0.6 % IMMATURE GRANULOCYTES (test 0.3 % code = 1036) NUCLEATED RBCS (test code = 0.0 /100WBC'S 1065) PLATELET COUNT (test code = 251 K/UL 1015) ABSOLUTE NEUTROPHILS (test code 3.84 K/UL = 1066) ABSOLUTE LYMPHOCYTES (test code 2.66 K/UL = 1067) ABSOLUTE MONOCYTES (test code = 0.40 K/UL 1068) ABSOLUTE EOSINOPHILS (test code 0.23 K/UL = 1040) ABSOLUTE BASOPHILS (test code = 0.04 K/UL 1069) ABS IMMATURE GRANULOCYTES (test 0.02 K/UL code = 1020) ABS NUCLEATED RBCS (test code = 0.00 K/UL 14460) COMPREHENSIVE METABOLIC [id number] 00:00:00 Test Item Value Reference Range Interpretation Comments GLUCOSE (test code = 2217) 90 MG/DL BUN (test code = 2208) 12 MG/DL CREATININE (test code = 2214) 0.66 MG/DL eGFR (2020 CKD-EPI) (test 114 ML/MIN/1.73 code = 65277) CALC BUN/CREAT (test code = 18 RATIO 2235) SODIUM (test code = 2231) 138 MEQ/L POTASSIUM (test code = 2228) 4.4 MEQ/L CHLORIDE (test code = 2215) 101 MEQ/L CARBON DIOXIDE (test code = 22 MEQ/L 220) CALCIUM (test code = 2209) 9.6 MG/DL PROTEIN, TOTAL (test code = 7.4 G/DL 2228) ALBUMIN (test code = 2201) 4.4 G/DL CALC GLOBULIN (test code = 3.0 G/DL 2240) CALC A/G RATIO (test code = 1.5 RATIO 2234) BILIRUBIN, TOTAL (test code = <0.2 MG/DL 2206) ALKALINE PHOSPHATASE (test 88 U/L code = 2204) AST (test code = 2218) 17 U/L ALT (test code = 2219) 16 U/L COMPREHENSIVE METABOLIC [id number] 00:00:00 Test Item Value Reference Range Interpretation Comments GLUCOSE (test code = 2217) 90 MG/DL BUN (test code = 2208) 12 MG/DL CREATININE (test code = 2214) 0.66 MG/DL eGFR (2020 CKD-EPI) (test 114 ML/MIN/1.73 code = 20328) CALC BUN/CREAT (test code = 18 RATIO 2235) SODIUM (test code = 2231) 138 MEQ/L POTASSIUM (test code = 2228) 4.4 MEQ/L CHLORIDE (test code = 2215) 101 MEQ/L CARBON DIOXIDE (test code = 22 MEQ/L 2206) CALCIUM (test code = 2209) 9.6 MG/DL PROTEIN, TOTAL (test code = 7.4 G/DL 2228) ALBUMIN (test code = 2201) 4.4 G/DL CALC GLOBULIN (test code = 3.0 G/DL 2240) CALC A/G RATIO (test code = 1.5 RATIO 2233) BILIRUBIN, TOTAL (test code = <0.2 MG/DL 2206) ALKALINE PHOSPHATASE (test 88 U/L code = 2204) AST (test code = 2218) 17 U/L ALT (test code = 2219) 16 U/L [id number] 00:00:00 Test Item Value Reference Range Interpretation Comments TSH, THIRD GENERATION (test code 0.651 UIU/ML = 2821) [id number] 00:00:00 Test Item Value Reference Range Interpretation Comments TSH, THIRD GENERATION (test code 0.651 UIU/ML = 2821) [id number] 00:00:00 Test Item Value Reference Range Interpretation Comments TSH, THIRD GENERATION (test code 0.651 UIU/ML = 2821) LIVER (HEPATIC) FUNCTION [id number] 00:00:00 Test Item Value Reference Range Interpretation Comments PROTEIN, TOTAL (test code = 2229) 7.4 G/DL ALBUMIN (test code = 2201) 4.4 G/DL BILIRUBIN, TOTAL (test code = <0.2 MG/DL 2206) BILIRUBIN, DIRECT (test code = <0.2 MG/DL 2021) ALKALINE PHOSPHATASE (test code = 88 U/L 2203) AST (test code = 2218) 17 U/L ALT (test code = 2219) 16 U/L LIVER (HEPATIC) FUNCTION [id number] 00:00:00 Test Item Value Reference Range Interpretation Comments PROTEIN, TOTAL (test code = 2229) 7.4 G/DL ALBUMIN (test code = 2201) 4.4 G/DL BILIRUBIN, TOTAL (test code = <0.2 MG/DL 2206) BILIRUBIN, DIRECT (test code = <0.2 MG/DL 2021) ALKALINE PHOSPHATASE (test code = 88 U/L 2203) AST (test code = 2218) 17 U/L ALT (test code = 2219) 16 U/L HEMOGLOBIN [id number] 00:00:00 Test Item Value Reference Range Interpretation Comments HEMOGLOBIN A1c (test code = 93625) 5.8 % HEMOGLOBIN [id number] 00:00:00 Test Item Value Reference Range Interpretation Comments HEMOGLOBIN A1c (test code = 49522) 5.8 % HEMOGLOBIN [id number] 00:00:00 Test Item Value Reference Range Interpretation Comments HEMOGLOBIN A1c (test code = 22998) 5.8 % CBC W/AUTO [id number] 00:00:00 Test Item Value Reference Range Interpretation Comments WBC (test code = 1001) 7.2 K/UL RBC (test code = 1002) 4.65 M/UL HEMOGLOBIN (test code = 1003) 13.4 G/DL HEMATOCRIT (test code = 1004) 38.6 % MCV (test code = 1005) 83.0 fL MCH (test code = 1006) 28.8 PG MCHC (test code = 1007) 34.7 G/DL RDW (test code = 1038) 14.3 % NEUTROPHILS (test code = 1008) 53.3 % LYMPHOCYTES (test code = 1010) 37.0 % MONOCYTES (test code = 1011) 5.6 % EOSINOPHILS (test code = 1012) 3.2 % BASOPHILS (test code = 1013) 0.6 % IMMATURE GRANULOCYTES (test 0.3 % code = 1036) NUCLEATED RBCS (test code = 0.0 /100WBC'S 1065) PLATELET COUNT (test code = 251 K/UL 1015) ABSOLUTE NEUTROPHILS (test code 3.84 K/UL = 1066) ABSOLUTE LYMPHOCYTES (test code 2.66 K/UL = 1067) ABSOLUTE MONOCYTES (test code = 0.40 K/UL 1068) ABSOLUTE EOSINOPHILS (test code 0.23 K/UL = 1040) ABSOLUTE BASOPHILS (test code = 0.04 K/UL 1069) ABS IMMATURE GRANULOCYTES (test 0.02 K/UL code = 1020) ABS NUCLEATED RBCS (test code = 0.00 K/UL 10382) CBC W/AUTO [id number] 00:00:00 Test Item Value Reference Range Interpretation Comments WBC (test code = 1001) 7.2 K/UL RBC (test code = 1002) 4.65 M/UL HEMOGLOBIN (test code = 1003) 13.4 G/DL HEMATOCRIT (test code = 1004) 38.6 % MCV (test code = 1005) 83.0 fL MCH (test code = 1006) 28.8 PG MCHC (test code = 1007) 34.7 G/DL RDW (test code = 1038) 14.3 % NEUTROPHILS (test code = 1008) 53.3 % LYMPHOCYTES (test code = 1010) 37.0 % MONOCYTES (test code = 1011) 5.6 % EOSINOPHILS (test code = 1012) 3.2 % BASOPHILS (test code = 1013) 0.6 % IMMATURE GRANULOCYTES (test 0.3 % code = 1036) NUCLEATED RBCS (test code = 0.0 /100WBC'S 1065) PLATELET COUNT (test code = 251 K/UL 1015) ABSOLUTE NEUTROPHILS (test code 3.84 K/UL = 1066) ABSOLUTE LYMPHOCYTES (test code 2.66 K/UL = 1067) ABSOLUTE MONOCYTES (test code = 0.40 K/UL 1068) ABSOLUTE EOSINOPHILS (test code 0.23 K/UL = 1040) ABSOLUTE BASOPHILS (test code = 0.04 K/UL 1069) ABS IMMATURE GRANULOCYTES (test 0.02 K/UL code = 1020) ABS NUCLEATED RBCS (test code = 0.00 K/UL 38750) CBC W/AUTO [id number] 00:00:00 Test Item Value Reference Range Interpretation Comments WBC (test code = 1001) 7.2 K/UL RBC (test code = 1002) 4.65 M/UL HEMOGLOBIN (test code = 1003) 13.4 G/DL HEMATOCRIT (test code = 1004) 38.6 % MCV (test code = 1005) 83.0 fL MCH (test code = 1006) 28.8 PG MCHC (test code = 1007) 34.7 G/DL RDW (test code = 1038) 14.3 % NEUTROPHILS (test code = 1008) 53.3 % LYMPHOCYTES (test code = 1010) 37.0 % MONOCYTES (test code = 1011) 5.6 % EOSINOPHILS (test code = 1012) 3.2 % BASOPHILS (test code = 1013) 0.6 % IMMATURE GRANULOCYTES (test 0.3 % code = 1036) NUCLEATED RBCS (test code = 0.0 /100WBC'S 1065) PLATELET COUNT (test code = 251 K/UL 1015) ABSOLUTE NEUTROPHILS (test code 3.84 K/UL = 1066) ABSOLUTE LYMPHOCYTES (test code 2.66 K/UL = 1067) ABSOLUTE MONOCYTES (test code = 0.40 K/UL 1068) ABSOLUTE EOSINOPHILS (test code 0.23 K/UL = 1040) ABSOLUTE BASOPHILS (test code = 0.04 K/UL 1069) ABS IMMATURE GRANULOCYTES (test 0.02 K/UL code = 1020) ABS NUCLEATED RBCS (test code = 0.00 K/UL 91817) COMPREHENSIVE METABOLIC [id number] 00:00:00 Test Item Value Reference Range Interpretation Comments GLUCOSE (test code = 2217) 90 MG/DL BUN (test code = 2208) 12 MG/DL CREATININE (test code = 2214) 0.66 MG/DL eGFR (2020 CKD-EPI) (test 114 ML/MIN/1.73 code = 65074) CALC BUN/CREAT (test code = 18 RATIO 2235) SODIUM (test code = 2231) 138 MEQ/L POTASSIUM (test code = 2228) 4.4 MEQ/L CHLORIDE (test code = 2215) 101 MEQ/L CARBON DIOXIDE (test code = 22 MEQ/L 220) CALCIUM (test code = 2209) 9.6 MG/DL PROTEIN, TOTAL (test code = 7.4 G/DL 2228) ALBUMIN (test code = 2201) 4.4 G/DL CALC GLOBULIN (test code = 3.0 G/DL 224) CALC A/G RATIO (test code = 1.5 RATIO 2234) BILIRUBIN, TOTAL (test code = <0.2 MG/DL 2206) ALKALINE PHOSPHATASE (test 88 U/L code = 2204) AST (test code = 2218) 17 U/L ALT (test code = 2219) 16 U/L COMPREHENSIVE METABOLIC [id number] 00:00:00 Test Item Value Reference Range Interpretation Comments GLUCOSE (test code = 2217) 90 MG/DL BUN (test code = 2208) 12 MG/DL CREATININE (test code = 2214) 0.66 MG/DL eGFR (2020 CKD-EPI) (test 114 ML/MIN/1.73 code = 17056) CALC BUN/CREAT (test code = 18 RATIO 2235) SODIUM (test code = 2231) 138 MEQ/L POTASSIUM (test code = 2228) 4.4 MEQ/L CHLORIDE (test code = 2215) 101 MEQ/L CARBON DIOXIDE (test code = 22 MEQ/L 220) CALCIUM (test code = 2209) 9.6 MG/DL PROTEIN, TOTAL (test code = 7.4 G/DL 2228) ALBUMIN (test code = 2201) 4.4 G/DL CALC GLOBULIN (test code = 3.0 G/DL 2239) CALC A/G RATIO (test code = 1.5 RATIO 2233) BILIRUBIN, TOTAL (test code = <0.2 MG/DL 2206) ALKALINE PHOSPHATASE (test 88 U/L code = 2204) AST (test code = 2218) 17 U/L ALT (test code = 2219) 16 U/L [id number] 00:00:00 Test Item Value Reference Range Interpretation Comments TSH, THIRD GENERATION (test code 0.651 UIU/ML = 2821) [id number] 00:00:00 Test Item Value Reference Range Interpretation Comments TSH, THIRD GENERATION (test code 0.651 UIU/ML = 2821) [id number] 00:00:00 Test Item Value Reference Range Interpretation Comments TSH, THIRD GENERATION (test code 0.651 UIU/ML = 2821) LIVER (HEPATIC) FUNCTION [id number] 00:00:00 Test Item Value Reference Range Interpretation Comments PROTEIN, TOTAL (test code = 2229) 7.4 G/DL ALBUMIN (test code = 2201) 4.4 G/DL BILIRUBIN, TOTAL (test code = <0.2 MG/DL 2206) BILIRUBIN, DIRECT (test code = <0.2 MG/DL 2021) ALKALINE PHOSPHATASE (test code = 88 U/L 2203) AST (test code = 2218) 17 U/L ALT (test code = 2219) 16 U/L LIVER (HEPATIC) FUNCTION [id number] 00:00:00 Test Item Value Reference Range Interpretation Comments PROTEIN, TOTAL (test code = 2229) 7.4 G/DL ALBUMIN (test code = 2201) 4.4 G/DL BILIRUBIN, TOTAL (test code = <0.2 MG/DL 2206) BILIRUBIN, DIRECT (test code = <0.2 MG/DL 2021) ALKALINE PHOSPHATASE (test code = 88 U/L 2203) AST (test code = 2218) 17 U/L ALT (test code = 2219) 16 U/L"
[2022-09-19] MEDS ORDERED: HYDROMORPHONE HCL 1 MG/ML INJ ONE ×2 (10:50→13:28)
[2022-09-19] MEDS ORDERED: ONDANSETRON 4 MG/2 ML VIAL ONE (10:50)
[2022-09-19] MEDS ORDERED: NA CHLORIDE 0.9% 1,000 ML ONE (10:50)
[2022-09-19 10:53] LABS: Specific Gravity 1.025 (1.005-1.030)
[2022-09-19 10:57] LABS: Specific Gravity 1.024 (1.005-1.030); Urine Bacteria 20-50 /HPF (<20); Urine Bilirubin NEGATIVE (Negative); Urine Blood 2+ (Negative); Urine Clarity Extremely Turbid (Clear); Urine Color Yellow (Yellow); Urine Glucose NEGATIVE (Negative); Urine Mucus 1+ /HPF (None Seen); Urine Protein TRACE (Negative); Urine Urobilinogen Normal (Normal)
[2022-09-19 11:02] LABS: Hematocrit 41.1 % (36.0-45.0); Lymphocytes % 32.6 % (15.3-44.8); MCV 89.1 fL (80-100); MPV 8.8 fL (7.6-11.3); RBC Red Blood Cell Count 4.61 M/uL (3.86-4.86)
--- NOTE | 2022-09-19 11:22 | RAD REPORT ---
EXAM DESCRIPTION: CT - Abdomen Pelvis W Contrast - 09/19/2022 11:05 am CLINICAL HISTORY: Abdominal pain COMPARISON: none. TECHNIQUE: Computed axial tomography of the abdomen pelvis was obtained. 100 cc [id number] was admin istered intravenously. Oral contrast was not requested which limits evaluation of bowel and appendix All CT scans are performed using dose optimization technique as appropriate and may include automated exposure control or mA/KV adjustment according to patient size. FINDINGS: Mild fatty liver. Cholecystectomy Spleen, pancreas, adrenals and kidneys unremarkable No evidence of diverticulitis/colitis. 5.8 centimeter fat mass right abdomen abuts colon and small bowel within the mesenteries probably a l ipoma. Mild thickening of the wall. No adnexal mass Normal appendix IMPRESSION: 5.8 centimeter fatty mass right abdomen with a mildly thickened wall probably a lipoma. Follow-up unenhanced CT in 6 months recommended to assess stability Mild fatty liver
[2022-09-19 12:59] LABS: Albumin 3.3 g/dL (3.4-5.0); Bilirubin Total 0.1 mg/dL (0.2-1.0); Potassium 3.7 mEq/L (3.5-5.1); Protein, Total 6.6 g/dL (6.4-8.2)
--- NOTE | 2022-09-19 13:27 | EDPHYS ---
Physician Documentation [facility] Name: Bettina Yepez Age: 42 yrs Sex: Female : 1980 Arrival Date: 09/19/2022 Time: 10:17 Bed 5 Private MD: ED Physician Chepe Porter HPI: 09/19 10:28 This 42 yrs old Female presents to ER via Unassigned with complaints of Abdominal Pain, sp3 Nausea/Vomiting. 10:29 42-year-old female with functional neurological disorder, bipolar disease, anxiety, sp3 fibromyalgia now presents to the ED with diffuse abdominal pain x1 week with 2 episodes of blood mixed with diarrhea and nausea with emesis x2-3 episodes without any blood. She is status postcholecystectomy 8 years ago. No other abdominal surgeries reported. She denies headache, neck pain, fever, upper respiratory symptoms, chest pain, shortness of breath, back pain, symptoms, [employer] DES[employer] symptoms, or any other signs or symptoms on ROS at this time. She states she had a colonoscopy over 10 years ago and has not had any endoscopies. Colonoscopy was normal at that time.. Historical: - Allergies: 10:29 Lyrica; aa5 10:29 PENICILLINS; aa5 10:29 Stadol; aa5 - PMHx: 10:29 Anxiety; Bipolar disorder; Depression; DJD; Fibromyalgia; Migraine; PTSD; Functional aa5 Neurological Disorder; - PSHx: 10:29 Cholecystectomy; Exploratory laparotomy; Ligation of fallopian tube; scope of left aa5 knee; Tonsillectomy; ROS: 10:30 Constitutional: Negative for fever, chills, and weight loss, Eyes: Negative for injury, sp3 pain, redness, and discharge, ENT: Negative for injury, pain, and discharge, Neck: Negative for injury, pain, and swelling, Cardiovascular: Negative for chest pain, palpitations, and edema, Respiratory: Negative for shortness of breath, cough, wheezing, and pleuritic chest pain, Back: Negative for injury and pain, MS/Extremity: Negative for injury and deformity, Skin: Negative for injury, rash, and discoloration, Neuro: Negative for headache, weakness, numbness, tingling, and seizure, Psych: Negative for depression, anxiety, suicide ideation, homicidal ideation, and hallucinations, Allergy/Immunology: Negative for hives, rash, and allergies, Endocrine: Negative for neck swelling, polydipsia, polyuria, polyphagia, and marked weight changes. 10:30 All other systems are negative. Exam: 10:31 Constitutional: This is a well developed, well nourished patient who is awake, alert, sp3 and in no acute distress. Head/Face: Normocephalic, atraumatic. Eyes: Pupils equal round and reactive to light, extra-ocular motions intact. Lids and lashes normal. Conjunctiva and sclera are non-icteric and not injected. Cornea within normal limits. Periorbital areas with no swelling, redness, or edema. ENT: Nares patent. No nasal discharge, no septal abnormalities noted. External auditory canals are clear. Oropharynx with no redness, swelling, or masses, exudates, or evidence of obstruction, uvula midline. Mucous membranes moist. Neck: Trachea midline, no thyromegaly or masses palpated, and no cervical lymphadenopathy. Supple, full range of motion without nuchal rigidity, or vertebral point tenderness. No Meningismus. Chest/axilla: Normal chest wall appearance and motion. Nontender with no deformity. No lesions are appreciated. Respiratory: Lungs have equal breath sounds bilaterally, clear to auscultation and percussion. No rales, rhonchi or wheezes noted. No increased work of breathing, no retractions or nasal flaring. Back: No spinal tenderness. No costovertebral tenderness. Full range of motion. Skin: Warm, dry with normal turgor. Normal color with no rashes, no lesions, and no evidence of cellulitis. MS/ Extremity: Pulses equal, no cyanosis. Neurovascular intact. Full, normal range of motion. Neuro: Awake and alert, GCS 15, oriented to person, place, time, and situation. Cranial nerves II-XII grossly intact. Motor strength 5/5 in all extremities. Sensory grossly intact. Cerebellar exam normal. Normal gait. Psych: Awake, alert, with orientation to person, place and time. Behavior, mood, and affect are within normal limits. 10:31 Cardiovascular: Normal cardiac exam with tachycardia into the 115 range regular in nature.. 10:31 Abdomen/GI: Diffuse tenderness to palpation without peritoneal signs, rebound or guarding. Hyperactive bowel sounds noted.. Vital Signs: 10:21 BP 126 / 84; Pulse 115; Resp 20 S; Temp 98.3(O); Pulse Ox 98% on R/A; Weight 73.48 kg aa5 (R); Height 5 ft. 0 in. (R); 12:35 BP 137 / 87; Pulse 92; Resp 17 S; Pulse Ox 98% on R/A; Pain 6/10; kc6 13:42 BP 126 / 66; Pulse 102; Resp 18 S; Pulse Ox 98% on R/A; kc6 10:21 Body Mass Index 31.64 (73.48 kg, 152.4 cm) aa5 12:35 Pain Scale: Adult kc6 MDM: 10:22 Patient medically screened. sp3 10:31 Data reviewed: vital signs, nurses notes, old medical records, lab test result(s), sp3 radiologic studies. ED course: 42-year-old female with extensive psychiatric history now presents with diffuse abdominal pain with possible bloody diarrhea. Will obtain laboratory values, urine analysis, CT scan of the abdomen pelvis. We will treat with IV fluids, Dilaudid and Zofran. Disposition to be based on treatment and patient course. Differential diagnosis is broad and includes functional abdominal pain, gastritis, pancreatitis, biliary pathology including retained stone although unlikely, intestinal obstruction, ileus, foodborne illness, enteritis, among others. I am not highly suspicious for shock, sepsis, vascular pathology including aortic aneurysm or dissection, pathology, [employer] DES[employer] pathology, or any other critical illness at this time.. 13:20 ED course: . sp3 13:26 ED course: CT scan demonstrates no acute abnormality and laboratory values indicate sp3 urinary tract infection. Will administer Levaquin IV 1 dose prior to discharge and discharge patient home on p.o. Levaquin with follow-up to her PCP.. 09/19 10:27 Order name: CBC with Diff; Complete Time: 11:39 sp3 09/19 10:27 Order name: CMP; Complete Time: 13:16 sp3 09/19 10:27 Order name: Lipase; Complete Time: 13:16 sp3 09/19 10:27 Order name: Test, Urine; Complete Time: 11:39 sp3 09/19 10:27 Order name: Urinalysis w/ reflexes; Complete Time: 11:39 sp3 09/19 10:27 Order name: CT Abd/Pelvis - IV Contrast Only; Complete Time: 11:39 sp3 09/19 10:27 Order name: IV Saline Lock; Complete Time: 10:50 sp3 09/19 10:27 Order name: Labs collected and sent; Complete Time: 10:45 sp3 09/19 10:52 Order name: Labs - recollect needed: recollect green top; Complete Time: 11:50 bd Administered Medications: 10:59 Drug: NS 0.9% IV 1000 ml Route: IV; Rate: 1 bolus; Site: right forearm; kc6 11:45 Follow up: Response: No adverse reaction; IV Status: Completed infusion; IV Intake: kc6 1000ml 10:59 Drug: Ondansetron IVP 4 mg Route: IVP; Site: right forearm; kc6 11:45 Follow up: Response: No adverse reaction; Nausea is decreased; Vomiting decreased kc6 10:59 Drug: HYDROmorphone IVP 1 mg Route: IVP; Site: right forearm; kc6 11:45 Follow up: Response: No adverse reaction; Pain is unchanged, physician notified; RASS: kc6 Alert and Calm (0) 13:23 Drug: HYDROmorphone IVP 1 mg Route: IVP; Site: right forearm; iw 13:24 CANCELLED (Physician Discretion): Metoprolol IVP 5 mg IVP once; Hold for SBP <100 or HR iw <60. 13:30 Drug: levofloxacin IVPB 500 mg Volume: 100 ml; Route: IVPB; Infused Over: 60 mins; iw Site: right forearm; Disposition Summary: 09/19/22 13:27 Discharge Ordered Location: Home(09/19/22 13:27) sp3 Condition: Stable(09/19/22 13:27) sp3 Diagnosis - Urinary tract infection, abdominal pain sp3 Followup: sp3 - With: Private Physician - When: Upon discharge from the Emergency Department - Reason: Continuance of care Discharge Instructions: - Discharge Summary Sheet sp3 - Urinary Tract Infection, Adult sp3 Forms: - Medication Reconciliation Form sp3 - Thank You Letter sp3 - Antibiotic Education sp3 - Prescription Opioid Use sp3 Prescriptions: - levofloxacin 500 mg Oral Tablet - take 1 tablet by ORAL route once daily for 7 days Start on September 20, 2022; 7 sp3 tablet; Refills: 0, Product Selection Permitted Signatures: Dispatcher [employer] EDMS Kim Bird Irene, RN RN iw Elvie Ramirez RN RN aa5 Chepe Porter MD MD sp3 Lisa Stevens RN RN kc6 Corrections: (The following items were deleted from the chart) 10:30 10:29 PMHx: Functional neroulgical disorder; aa5 aa5 13:23 13:20 ED course: Patient is already on metoprolol and I will give 5 mg IV to help with sp3 heart rate. Blood pressure is still 137/87. Patient is resting comfortably at the moment but still complains of off-and-on chest pain. Chest x-ray demonstrates continued right chronic pleural effusion. Will defer to inpatient team on potential drainage and/or further management. BNP remains greater than 175,000 however clinically I do believe patient is in congestive heart failure. We will hold on diuresis at this time. Serial troponins and general observation and cardiology consult will be initiated. I will talk to inpatient team about this case.. sp3 13:23 13:22 Observation sp3 sp3 13:23 13:22 Khris Nesbitt sp3 sp3 13:23 13:22 Telemetry/MedSurg (observation) sp3 sp3 13:23 13:22 Stable sp3 sp3 13:23 13:22 chronic sp3 sp3 13:23 13:22 have worsened sp3 sp3 13:23 13:22 Standard sp3 sp3 13:23 13:22 sp3 sp3 13:23 13:22 Chest pain, dyspnea, tachycardia, chronic right pleural effusion sp3 sp3 13:24 13:20 Metoprolol IVP 5 mg IVP once; Hold for SBP <100 or HR <60. ordered. sp3 iw 13:24 13:24 Metoprolol IVP 5 mg IVP once; Hold for SBP <100 or HR <60. ordered. iw iw
--- NOTE | 2022-09-19 13:27 | ER ---
Nurse's Notes [facility] Name: Bettina Yepez Age: 42 yrs Sex: Female : 1980 Arrival Date: 09/19/2022 Time: 10:17 Bed 5 Private MD: Diagnosis: Urinary tract infection, abdominal pain Presentation: 09/19 10:21 Chief complaint: Patient states: abd pain, nausea/vomiting, and 2 episodes of bright aa5 red blood in stool x 1 week ago. 10:21 Coronavirus screen: vomiting. Ebola Screen: Patient denies travel to an Ebola-affected [facility] area in the 21 days before illness onset. Initial Sepsis Screen: Does the patient meet any 2 criteria? HR > 90 bpm. Does the patient have a suspected source of infection? No. Patient's initial sepsis screen is negative. Risk Assessment: Do you want to hurt yourself or someone else? Patient reports no desire to harm self or others. Onset of symptoms was September 2022. 10:21 Acuity: SHADI 3 aa5 10:21 Method Of Arrival: Ambulatory aa5 Historical: - Allergies: 10:29 Lyrica; aa5 10:29 PENICILLINS; aa5 10:29 Stadol; aa5 - PMHx: 10:29 Anxiety; Bipolar disorder; Depression; DJD; Fibromyalgia; Migraine; PTSD; Functional aa5 Neurological Disorder; - PSHx: 10:29 Cholecystectomy; Exploratory laparotomy; Ligation of fallopian tube; scope of left aa5 knee; Tonsillectomy; Screenin:34 [facility] ED Fall Risk Assessment (Adult) History of falling in the last 3 months, iw including since admission No falls in past 3 months (0 pts). Abuse screen: Denies threats or abuse. Denies injuries from another. Nutritional screening: No deficits noted. Tuberculosis screening: No symptoms or risk factors identified. Assessment: 10:21 Reassessment: Patient is alert, oriented x 3, equal unlabored respirations, skin kc6 warm/dry/pink. General: Appears in no apparent distress. uncomfortable, Behavior is calm, cooperative, appropriate for age. 11:21 Reassessment: Patient appears in no apparent distress at this time. No changes from kc6 previously documented assessment. Patient and/or family updated on plan of care and expected duration. Pain level reassessed. Patient is alert, oriented x 3, equal unlabored respirations, skin warm/dry/pink. 11:21 Reassessment: Patient appears in no apparent distress at this time. No changes from kc6 previously documented assessment. Patient and/or family updated on plan of care and expected duration. Pain level reassessed. Patient is alert, oriented x 3, equal unlabored respirations, skin warm/dry/pink. 12:21 Reassessment: Patient appears in no apparent distress at this time. No changes from kc6 previously documented assessment. Patient and/or family updated on plan of care and expected duration. Pain level reassessed. Patient is alert, oriented x 3, equal unlabored respirations, skin warm/dry/pink. 13:24 Reassessment: Patient appears in no apparent distress at this time. Patient and/or iw family updated on plan of care and expected duration. Pain level reassessed. Patient is alert, oriented x 3, equal unlabored respirations, skin warm/dry/pink. pt sates pain is 6/10, requesting more pain medication, Dr. Porter notified, warm blanket and pillow give, lights dimmed. 13:27 Reassessment: d/c pending IV antibiotic completion. kc6 Vital Signs: 10:21 BP 126 / 84; Pulse 115; Resp 20 S; Temp 98.3(O); Pulse Ox 98% on R/A; Weight 73.48 kg aa5 (R); Height 5 ft. 0 in. (R); 12:35 BP 137 / 87; Pulse 92; Resp 17 S; Pulse Ox 98% on R/A; Pain 6/10; kc6 13:42 BP 126 / 66; Pulse 102; Resp 18 S; Pulse Ox 98% on R/A; kc6 10:21 Body Mass Index 31.64 (73.48 kg, 152.4 cm) aa5 12:35 Pain Scale: Adult kc6 ED Course: 10:18 Patient arrived in ED. am2 10:21 Chepe Porter MD is Attending Physician. sp3 10:21 Arm band placed on Patient placed in an exam room, on a stretcher. aa5 10:22 Lisa Stevens, BERNY is Primary Nurse. kc6 10:29 Triage completed. aa5 10:39 CBC with Diff Sent. kc6 10:39 CMP Sent. kc6 10:39 Lipase Sent. kc6 10:39 Missed attempt(s): 20 gauge in right antecubital area. Missed attempt(s): 20 gauge in kc6 left antecubital area. 10:45 Test, Urine Sent. kc6 10:45 Urinalysis w/ reflexes Sent. kc6 10:50 Inserted saline lock: 22 gauge in right forearm, using aseptic technique. em1 11:07 CT Abd/Pelvis - IV Contrast Only In Process Unspecified. EDMS 13:21 Khris Nesbitt is Hospitalizing Provider. sp3 14:24 No provider procedures requiring assistance completed. IV discontinued, intact, kc6 bleeding controlled, No redness/swelling at site. Pressure dressing applied. Administered Medications: 10:59 Drug: NS 0.9% IV 1000 ml Route: IV; Rate: 1 bolus; Site: right forearm; kc6 11:45 Follow up: Response: No adverse reaction; IV Status: Completed infusion; IV Intake: kc6 1000ml 10:59 Drug: Ondansetron IVP 4 mg Route: IVP; Site: right forearm; kc6 11:45 Follow up: Response: No adverse reaction; Nausea is decreased; Vomiting decreased kc6 10:59 Drug: HYDROmorphone IVP 1 mg Route: IVP; Site: right forearm; kc6 11:45 Follow up: Response: No adverse reaction; Pain is unchanged, physician notified; RASS: kc6 Alert and Calm (0) 13:23 Drug: HYDROmorphone IVP 1 mg Route: IVP; Site: right forearm; iw 13:24 CANCELLED (Physician Discretion): Metoprolol IVP 5 mg IVP once; Hold for SBP <100 or HR iw <60. 13:30 Drug: levofloxacin IVPB 500 mg Volume: 100 ml; Route: IVPB; Infused Over: 60 mins; iw Site: right forearm; Intake: 11:45 IV: 1000ml; Total: 1000ml. kc6 Outcome: 13:22 Decision to Hospitalize by Provider. sp3 13:27 Discharge ordered by MD. sp3 14:24 Discharged to home ambulatory. kc6 14:24 Condition: improved 14:24 Discharge instructions given to patient, Instructed on discharge instructions, follow up and referral plans. medication usage, Demonstrated understanding of instructions, follow-up care, medications, Prescriptions given X 1. 14:24 Patient left the ED. kc6 Signatures: Dispatcher [employer] EDMS Sonia Santos, RN RN iw Sekou Maza em1 Elvie Ramirez RN RN aa5 Blanca Perez am2 Chepe Porter MD MD sp3 Lisa Stevens RN RN kc6 Corrections: (The following items were deleted from the chart) 10:30 10:29 PMHx: Functional neroulgical disorder; aa5 aa5 12:37 12:35 Pulse 92bpm; Resp 17bpm; Spontaneous; Pulse Ox 98% RA; Pain 09/10, Adult; kc6 kc6
[2022-09-19] MEDS ORDERED: Levofloxacin500mg IV 500 MG/100 ML BAG IV ONE (13:28)
[2022-09-19 14:39] VITALS: TEMP 98.3; O2SAT 98
[2022-09-19 14:51] VITALS: BP 126/66
== END 2022-09-19 14:24 | disposition home or self-care (01) ==
LOC: ER 10:17
DX: N39.0 Urinary tract infection, site not specified (principal); F31.9 Bipolar disorder, unspecified; Z88.0 Allergy status to penicillin; Z88.5 Allergy status to narcotic agent; Z88.8 Allergy status to other drugs, medicaments and biological substances
CPT/HCPCS: 96361; 85025; 81001; 36415; 81025; 83690; 80053; 74177; 96375; 96374; 99284; Q9967; J1170 ×2; J2405; J7030